=== PATIENT | female | born 1960 | race American Indian/Alaskan Native ===

== ENCOUNTER 2019-09-22 10:36 | Inpatient (IN) | payer MEDICARE ==
[2019-09-22] MEDS ORDERED: ONDANSETRON 4 MG ODT TAB PO PRN (11:42)
[2019-09-22] MEDS ORDERED: ALBUTEROL 2.5 MG/3 ML NEBU IH PRN (11:42)
[2019-09-22] MEDS ORDERED: POLYETHYLENE GLYCOL 3350 17 GM POWDER PO PRN (11:42)
--- NOTE | 2019-09-22 12:25 | History and Physical Report ---
History of Present Illness Date: 09/22/19 Date of admission: September 22, 2019 Chief Complaint: Altered mental status /metabolic encephalopathy History of present illness: 59-year-old female who presented with altered mental status to the ER. Symptoms were consistent with CVA however CT head and MRI brain did not bear this out. CT head dated 09/17/2019 showed advanced microvascular ischemic changes similar with prior imaging, along with multiple remote small infarcts there were unchanged from prior and no acute abnormalities. MRI brain showed significant signal abnormality in both cerebral hemispheres with PRES as a consideration versus viral versus demyelinating disease. No focal mass or ischemia was appreciated there is a small nonaggressive appearing right parotid lesion as well noted incidentally. Neurology was consulted and stated that the multiple ischemic changes were all very minor but in toto could be causal for the altered mental status and encephalopathy. Patient was restarted on most of her home medications with some changes notably in the BILLY inhibitor which was changed to an ARB. Blood pressure has been and is still intermittently elevated. She was noted to have lymphopenia initially which later improved. She also had hypokalemia which was replaced. She does have medications at her bedside from home which show that she was on potassium replacement previously. Carotid Dopplers showed no significant disease in either side. Echocardiogram showed trace mitral regurg, mild tricuspid regurg, trace aortic regurg, left ventricular chamber normal with mild concentric hypertrophy. Ejection fraction estimated at 50-55%. Patient was also seen in the hospital back in 2013 for possible ischemic stroke. Neurologist note at that point stated that the CT scan of the brain showed no acute abnormalities but did show a few small lacunar infarcts that were chronic in nature. Brain MRI showed 3 small acute ischemic strokes including the largest of which which was subcortically in the posterior right frontal lobe and 2 in the left frontal and right frontal lobe subcortically. Patient was stabilized and seen by therapy. She was felt to be a good candidate for rehab and once medically stable was transferred for acute inpatient rehabilitation. All available medical records have been reviewed. Plan of care was discussed with patient and family. Patient is difficult to understand but with some effort can be understood and is interactive albeit slowly. Prior to admission to acute rehab medical records including records from prior admissions were reviewed in depth utilizing in total 37 minutes. Details of that medical record review are as stated above. Past History Past Medical History: hypertension, stroke Past Surgical History: cholecystectomy (Per patient, however I do not see any surgical clips on x-ray that are consistent with this.) Social history: lives with family, smoking, full code. denies: alcohol abuse, prescription drug abuse Family history: hypertension Medications and Allergies Allergies Allergy/AdvReac Type Severity Reaction Status Date / Time No Known Allergies Allergy Unverified 06/10/13 10:35 Home Medications Medication Instructions Recorded Confirmed Last Taken Type lisinopriL [Zestril TAB] 20 mg PO BID #60 tablet 06/12/13 09/17/19 Unknown Rx Metoprolol Xl [Metoprolol 100 mg PO QDAY 09/17/19 09/17/19 Unknown History SUCCINATE ER TAB] Mirtazapine 7.5 mg PO QHS 09/17/19 09/17/19 Unknown History Spironolactone [Aldactone] 25 mg PO BID 09/17/19 09/17/19 Unknown History Aspirin 325 mg PO QDAY tablet 09/21/19 Unknown Rx AtorvaSTATin [Lipitor] 40 mg PO QHS tablet 09/21/19 Unknown Rx Famotidine [Pepcid] 20 mg PO BID tablet 09/21/19 Unknown Rx Valsartan [Diovan] 160 mg PO Q12HR tablet 09/21/19 Unknown Rx Active Meds: Active Medications Acetaminophen (Tylenol) 650 mg PO Q6H PRN PRN Reason: Non Cardiac Pain or Temp>100.5 Albuterol (Proventil) 2.5 mg IH Q4HRT PRN PRN Reason: Shortness Of Breath Aspirin (Ecotrin) 325 mg PO QDAY SHAWN Atorvastatin Calcium (Lipitor) 40 mg PO QHS SHAWN Famotidine (Pepcid) 20 mg PO BID SHAWN Heparin Sodium (Porcine) (Heparin) 5,000 unit SUB-Q Q8HR SHAWN Hydralazine HCl (Apresoline) 10 mg IV Q4HR PRN PRN Reason: Hypertension Hydralazine HCl (Apresoline) 25 mg PO Q8HR SHAWN Metoprolol Succinate (Metoprolol Xl) 100 mg PO QDAY SHAWN Mirtazapine (Remeron) 7.5 mg PO QHS SHAWN Polyethylene Glycol (Miralax 3350) 17 gm PO QDAY PRN PRN Reason: Constipation Spironolactone (Aldactone) 25 mg PO BID SHAWN Valsartan (Diovan) 160 mg PO BID SHAWN Review of Systems All systems: negative (ROS negative for 12 systems except as noted below with pertinent positives and negatives.) Constitutional: fatigue, no fever Ears, nose, mouth and throat: dysphagia, no decreased hearing Cardiovascular: no chest pain, no palpitations, no edema Respiratory: no cough, no shortness of breath Gastrointestinal: no nausea, no vomiting, no diarrhea Musculoskeletal: no shooting arm pain, no shooting leg pain, no prior amputat ions Integumentary: no rash, no sores Neurological: weakness, change in speech, change in mentation Psychiatric: insomnia Exam - Exam Narrative exam: MUSCULOSKELETAL SPECIALTY EXAM CONSTITUTIONAL: Well developed, well nourished, appropriately groomed, thin. RIGHT hand dominant. LYMPHATIC: No appreciable abnormalities palpable in neck, left IV RESPIRATORY: Clear to auscultation bilaterally, no increased work of breathing CARDIOVASCULAR: Regular Rate/ Rhythm, no swelling, edema or tenderness in BUE or BLE. Pulses palpable in all extremities. All extremities warm. GI: + bowel sounds, soft, NTTP, nondistended. INTEGUMENTARY: Normal, no lesion, rash, masses or bruising noted in extremities. MUSCULOSKELETAL: BUE and BLE normal without defect, crepitus, subluxation, effusion, arthritic changes or TTP. R 4-/5 upper extremity, 3/5 lower extremity L 4-/5 upper extremity, 3/5 lower extremity ROM decreased in legs due to weakness otherwise normal Tone within normal limits NEURO: CN II - XII grossly intact Sensation intact in all extremities without extinction. Reflexes 3+ bilaterally at biceps, brachioradialis and patella. 2-3 beats of clonus at ankles. Coordination impaired in BUE. No tremor noted in 4 extremities. Naming and repetition intact with slowed speech. Follows 2 step commands. Aphasia not appreciated Dysarthria present Dysphagia present Neglect not appreciated POSTURE and GAIT: Sitting posture good. Balance and gait deferred until seen with therapy. PSYCH: Alert, oriented x3, affect appears flattened, insight appears slightly impaired. - Allied health notes Allied health notes reviewed: nursing, PT, ST, OT - Labs CBC & Chem 7: 09/23/19 07:00 09/23/19 07:00 Assessment and Plan Assessment and plan: Patient was assessed and evaluated for Acute Inpatient Rehab Unit. Due to the patients above-mentioned medical complexity, along with decreased functional mobility and self care, this patient continues to require and be appropriate for a comprehensive, multidisciplinary [id number] rehabilitation program. These needs cannot be met in an outpatient or other less intensive setting. The patient would continue to benefit from skilled the andrew intervention for at least 3 hours per day, five days a week, with techniques specific to the needs of the patient to improve function, activities of daily living, and reintegration into the community. The patient continues to require: -- OT to improve ROM, self-care, and learn use of adaptive equipment -- PT to improve strength and balance, functional transfers, and ambulation with energy conservation techniques to improve functional mobility -- BOTTOM STAINER to address cognitive deficits and swallowing ability -- 24 hour RN to ensure and prevent skin breakdown, promote progressive independence while ensuring safety, ensure education regarding medications, and incorporation of the rehabilitation at the bedside -- 24 hour Insurance Verifier to coordinate this interdisciplinary program, and to manage/prevent complications as a result of the patients medical comorbidities. -Plan of care by day 4 -Weekly team conferences With such a program, there is a reasonable certainty that the goals individuali zed for this patient can be achieved within the specified length of stay. Altered mental status/metabolic encephalopathy: Seems to be clearing. Continue to monitor for any further signs of decline or improvement. CVA, chronic: Continue secondary stroke prevention utilizing antithrombotic, statin, blood pressure control and lifestyle modifications. Monitor for recurrent stroke or poststroke recrudescence. Continue neuromotor therapy as above. Family training when available. Monitor for poststroke depression, cognitive deficits. Follow-up with neurology at discharge. Dysarthria: Continue speech therapy to improve ability to speak clearly by strengthening and improving control of muscles, improving breath support and slowing rate of speech. Dysphagia: Continue current diet. Speech to monitor and advance diet as able and perform FEES or MBS or e-stim as needed. Hypertension: Continue medications with hold parameters. Monitor blood pressure and adjust medications as needed for normotension. Hold for hypotension Insomnia: Continue home mirtazapine. Discussed sleep hygiene. Monitor for improvement ADL dysfunction: OT will work on improving ability to perform ADLs (including assistive devices) to increase independence and decrease caregiver burden and improve functional transfers and mobility training. Difficulty walking: PT will work on gait training and proper use of assistive devices and advance as appropriate to use of stairs and outside ambulation on uneven surfaces. Unsteadiness on feet: PT will work on improving static and dynamic sitting and standing balance as well as proper use of assistive devices to decrease risk of falls. Abnormality of gait: PT will work to improve safety and efficiency of gait through neuromotor training and gait training along with instruction on proper use of assistive devices. Muscle weakness: PT & OT will work on strengthening exercises to improve functional strength including mixture of closed and open kinetic chain exercises. Debility: PT & OT will work on improving overall functional status to improve participation with ADLs, mobility and social involvement. Fatigue: PT & OT will work on improving endurance through aerobic exercises and therapeutic activity while monitoring patients tolerance for activity and vital signs as needed. DVT ppx: Heparin Pain: Continue physical modalities in therapy and pain medications as needed to achieve functional pain control. Sleep: Monitor and address as needed. Bowel: Monitor and address as needed. Appetite: Monitor and address as needed. Discharge planning: Pending therapy progress and care plan meeting. Will continue discussion with therapy team, SW, patient and family. Restrictions/ Precautions: Falls WB status: FWB Functional Hx: ADLs: Needed assistance Cognition: Independent Mobility: Wheelchair/rolling walker Barriers to Discharge: Decreased mobility and ability to perform self care, balance deficits, weakness, cognitive deficits, dysarthria, dysphagia Estimated Length of Stay: 1214 days Discharge Destination: Home with family POST ADMISSION PHYSICIAN EVALUATION I have examined the patient and find that functional status, medical condition and appropriateness for IR[facility] admission are essentially unchanged from those described in the preadmission screening. Will monitor for worsening symptoms of encephalopathy, recurrent stroke, dysphagia, pneumonia/pneumonitis/aspiration, falls, DVT/PE, bowel and bladder complications and complications due to hypertension and electrolyte abnormalities. Will attempt to avoid occurrence of these issues or treat them if they present themselves.
[2019-09-22] MEDS: hydrALAZINE 25 MG TAB PO SCH ×2 (14:58→21:25)
[2019-09-22] MEDS: HEPARIN 5,000 UNIT/1 ML VIAL SUB-Q SCH ×2 (14:59→21:24)
[2019-09-22] MEDS: VALSARTAN 160MG TAB PO SCH (21:24)
[2019-09-22] MEDS: MIRTAZAPINE 15 MG TAB PO SCH (21:24)
[2019-09-22] MEDS: SPIRONOLACTONE 25 MG TAB PO SCH (21:25)
[2019-09-22] MEDS: FAMOTIDINE 20 MG TAB PO SCH (21:25)
[2019-09-23] MEDS: hydrALAZINE 25 MG TAB PO SCH ×3 (06:09→22:55)
[2019-09-23] MEDS: HEPARIN 5,000 UNIT/1 ML VIAL SUB-Q SCH ×3 (06:09→22:57)
[2019-09-23 07:19] LABS: Hematocrit 32.2 % (30.3-42.9); Mean Corpuscular HGB Conc 34 % (30-34); Mean Corpuscular Volume 90 fl (79-97); Platelet Count 140 K/mm3 (140-440); Red Blood Count 3.59 M/mm3 (3.65-5.03)
[2019-09-23 07:42] LABS: Alanine Aminotransferase 12 units/L (7-56); Albumin 2.8 g/dL (3.9-5); BUN/Creatinine Ratio 22; Blood Urea Nitrogen 13 mg/dL (7-17); Calcium 8.5 mg/dL (8.4-10.2); Hemolysis Index 2
[2019-09-23 09:23] LABS: Anisocytosis 1+; Eosinophils % (Manual) 0 % (0.0-4.3); Total Cells Counted 100
[2019-09-23 09:24] LABS: Ovalocytes Few; Platelet Estimate Consistent w Auto
[2019-09-23] MEDS: SPIRONOLACTONE 25 MG TAB PO SCH ×2 (09:28→22:55)
[2019-09-23] MEDS: VALSARTAN 160MG TAB PO SCH ×2 (09:29→22:56)
[2019-09-23] MEDS: METOPROLOL SUCCINATE XL 100 MG TAB PO SCH (09:29)
[2019-09-23] MEDS: ASPIRIN EC 325 MG TAB PO SCH (09:29)
[2019-09-23] MEDS: FAMOTIDINE 20 MG TAB PO SCH ×2 (09:29→22:56)
[2019-09-23] MEDS ORDERED: MAGNESIUM SULFATE 2 GM/50 ML BAG IV ONE (10:00)
--- NOTE | 2019-09-23 11:07 | Progress Note ---
Subjective Date of service: 09/23/19 Principal diagnosis: Altered mental status /metabolic encephalopathy Interval history: 59-year-old female who presented with altered mental status to the ER. Symptoms were consistent with CVA however CT head and MRI brain did not bear this out. CT head dated 09/17/2019 showed advanced microvascular ischemic changes similar with prior imaging, along with multiple remote small infarcts there were unchanged from prior and no acute abnormalities. MRI brain showed significant signal abnormality in both cerebral hemispheres with PRES as a consideration versus viral versus demyelinating disease. No focal mass or ischemia was appreciated there is a small nonaggressive appearing right parotid lesion as well noted incidentally. Neurology was consulted and stated that the multiple ischemic changes were all very minor but in toto could be causal for the altered mental status and encephalopathy. Patient was restarted on most of her home medications with some changes notably in the BILLY inhibitor which was changed to an ARB. Blood pressure has been and is still intermittently elevated. She was noted to have lymphopenia initially which later improved. She also had hypokalemia which was replaced. She does have medications at her bedside from home which show that she was on potassium replacement previously. Carotid Dopplers showed no significant disease in either side. Echocardiogram showed trace mitral regurg, mild tricuspid regurg, trace aortic regurg, left ventricular chamber normal with mild concentric hypertrophy. Ejection fraction estimated at 50-55%. Patient was also seen in the hospital back in 2013 for possible ischemic stroke. Neurologist note at that point stated that the CT scan of the brain showed no acute abnormalities but did show a few small lacunar infarcts that were chronic in nature. Brain MRI showed 3 small acute ischemic strokes including the largest of which which was subcortically in the posterior right frontal lobe and 2 in the left frontal and right frontal lobe subcortically. Patient was stabilized and seen by therapy. She was felt to be a good candidate for rehab and once medically stable was transferred for acute inpatient rehabilitation. All available medical records have been reviewed. Plan of care was discussed with patient. Patient is difficult to understand but with some effort can be understood and is interactive albeit slowly. Interval History: Patient is participating in therapy and making reasonable progress. Taking rest breaks as needed. -BM. Denies pain, palpitations, dyspnea, cough, N/V, or joint pain. Altered mental status/metabolic encephalopathy: Seems to be clearing somewhat. Continue to monitor for improvement Hypertension: Discussed with nursing that PRN dose is available. Patient had systolic blood pressure 160+ overnight with nothing being given. We will continue to adjust medications as needed to control blood pressure optimally. Hypomagnesemia: Replace and recheck labs tomorrow. Consider oral replacement afterwards Hypokalemia: Replace and recheck labs tomorrow. Consider oral replacement afterwards Tobacco abuse: Start low-dose nicotine patch. Patient states that she does currently still smoke daily prior to hospitalization CVA, chronic: Continue medications for secondary stroke prevention. Does not appear to have post stroke depression or worsening neurological signs. Dysarthria: Understandable however does have slowed speech and difficulty with word enunciation. Continue speech Dysphagia: Continue diet and upgrade as speech therapy improves her ability to improve oral intake. No aspiration noted today with modified diet intake Moderate protein malnutrition: Patient is thin. I do not believe the BMI of 15.7. Her weight since she has been at the hospital starting September 16 has varied from 120 pounds to 154 pounds and now 88 pounds. Will ask nursing to obtain a correct weight. Albumin 2.8. Have ordered prealbumin for tomorrow. We will start her on oral supplements. All records, vitals, labs and medications were reviewed. No other issues per patient, nursing or therapy. Objective - Exam Narrative Exam: MUSCULOSKELETAL SPECIALTY EXAM CONSTITUTIONAL: Well developed, well nourished, appropriately groomed, thin. RIGHT hand dominant. RESPIRATORY: Clear to auscultation bilaterally, no increased work of breathing CARDIOVASCULAR: Regular Rate/ Rhythm, no swelling, edema or tenderness in BUE or BLE. All extremities warm. GI: + bowel sounds, soft, NTTP, nondistended. INTEGUMENTARY: Normal, no lesion, rash, masses or bruising noted in extremities. MUSCULOSKELETAL: BUE and BLE normal without defect, crepitus, subluxation, effusion, arthritic changes or TTP. R 4-/5 upper extremity, 3/5 lower extremity L 4-/5 upper extremity, 3/5 lower extremity ROM decreased in legs due to weakness otherwise normal Tone within normal limits NEURO: CN II - XII grossly intact Sensation intact in all extremities without extinction. No tremor noted in 4 extremities. Naming and repetition intact with slowed speech. Follows simple 2 step commands. Aphasia not appreciated Dysarthria present Dysphagia present Neglect not appreciated POSTURE and GAIT: Sitting posture good. Balance and gait deferred until seen with therapy. PSYCH: Alert, oriented x3, affect appears flattened, insight appears slightly impaired. - Constitutional Vitals: Vital Signs - 12hr 09/22/19 09/22/19 09/23/19 23:27 23:36 03:13 Temperature 97.6 F 97.5 F L Pulse Rate 83 Respiratory 16 16 Rate Blood Pressure 169/89 168/86 O2 Sat by Pulse 99 Oximetry 09/23/19 09/23/19 09/23/19 04:52 06:09 08:30 Temperature 98.4 F Pulse Rate 83 83 106 H Respiratory 18 Rate Blood Pressure 168/86 119/72 O2 Sat by Pulse 92 96 Oximetry 09/23/19 09/23/19 09:28 09:29 Temperature Pulse Rate 84 84 Respiratory Rate Blood Pressure 120/72 120/72 O2 Sat by Pulse 100 Oximetry - Allied health notes Allied health notes reviewed: nursing, ST, OT - Labs CBC & Chem 7: 09/23/19 07:00 09/23/19 07:00 Labs: Laboratory Results - last 72 hr 09/23/19 09/23/19 07:00 07:00 WBC 2.0 L RBC 3.59 L Hgb 11.0 Hct 32.2 MCV 90 MCH 31 MCHC 34 RDW 16.0 H Plt Count 140 [place] % (Auto) Car [employer]orer Add Manual Diff Complete Total Counted 100 Seg Neuts % (Manual) 78.0 H Band Neutrophils % 0 Lymphocytes % (Manual) 9.0 L Reactive Lymphs % (Man) 0 Monocytes % (Manual) 11.0 H Eosinophils % (Manual) 0 Basophils % (Manual) 2.0 H Metamyelocytes % 0 Myelocytes % 0 Promyelocytes % 0 Blast Cells % 0 Nucleated RBC % Not Reportable Seg Neutrophils # Man 1.6 L Band Neutrophils # 0.0 Lymphocytes # (Manual) 0.2 L Abs React Lymphs (Man) 0.0 Monocytes # (Manual) 0.2 Eosinophils # (Manual) 0.0 Basophils # (Manual) 0.0 Metamyelocytes # 0.0 Myelocytes # 0.0 Promyelocytes # 0.0 Blast Cells # 0.0 WBC Morphology Not Reportable Hypersegmented Neuts Not Reportable Hyposegmented Neuts Not Reportable Hypogranular Neuts Not Reportable Smudge Cells Not Reportable Toxic Granulation Not Reportable Toxic Vacuolation Not Reportable Dohle Bodies Not Reportable Pelger-Huet Anomaly Not Reportable Dirk Rods Not Reportable Platelet Estimate Consistent w auto Clumped Platelets Not Reportable Plt Clumps, EDTA Not Reportable Large Platelets Not Reportable Giant Platelets Not Reportable Platelet Satelliting Not Reportable Plt Morphology Comment Not Reportable RBC Morphology Not Reportable Dimorphic RBCs Not Reportable Polychromasia Not Reportable Hypochromasia Not Reportable Poikilocytosis Not Reportable Anisocytosis 1+ Microcytosis Not Reportable Macrocytosis Not Reportable Spherocytes Not Reportable Pappenheimer Bodies Not Reportable Sickle Cells Not Reportable Target Cells Not Reportable Tear Drop Cells Not Reportable Ovalocytes Few Helmet Cells Not Reportable Jensen-[place] Bodies Not Reportable [place] Rings Not Reportable [place] Cells Not Reportable Bite Cells Not Reportable Crenated Cell Not Reportable Elliptocytes Few Acanthocytes (Spur) Not Reportable Rouleaux Not Reportable Hemoglobin C Crystals Not Reportable Schistocytes Not Reportable Malaria parasites Not Reportable Beni Bodies Not Reportable Hem Pathologist Commnt No Sodium 139 Potassium 3.2 L Chloride 100.7 Carbon Dioxide 27 Anion Gap 15 BUN 13 Creatinine 0.6 L Estimated GFR > 60 BUN/Creatinine Ratio 22 Glucose 116 H Calcium 8.5 Magnesium 1.50 L Total Bilirubin 0.40 AST 22 ALT 12 Alkaline Phosphatase 122 Total Protein 7.1 Albumin 2.8 L Albumin/Globulin Ratio 0.7 Assessment and Plan Altered mental status/metabolic encephalopathy: Seems to be clearing. Continue to monitor for any further signs of decline or improvement. CVA, chronic: Continue secondary stroke prevention utilizing antithrombotic, statin, blood pressure control and lifestyle modifications. Monitor for recurrent stroke or poststroke recrudescence. Continue neuromotor therapy as above. Family training when available. Monitor for poststroke depression, cognitive deficits. Follow-up with neurology at discharge. Dysarthria: Continue speech therapy to improve ability to speak clearly by strengthening and improving control of muscles, improving breath support and slo wing rate of speech. Dysphagia: Continue current diet. Speech to monitor and advance diet as able and perform FEES or MBS or e-stim as needed. Hypertension: Continue medications with hold parameters. Monitor blood pressure and adjust medications as needed for normotension. Hold for hypotension Insomnia: Continue home mirtazapine. Discussed sleep hygiene. Monitor for improvement Tobacco cessation: Discussed with the patient for approximately 4 minutes the importance of tobacco cessation especially in light of her prior CVA and hypertension. Offered nicotine patch and other avenues to assist with quitting. Patient states that she is currently still smoke on a regular basis. Will st art nicotine patch at low level and hopefully assist her with cessation. Hypomagnesemia: Replace via IV and monitor. Patient was on oral replacement previously, will likely restart that. Hypokalemia: Replace via IV and monitor. Patient does have prescription for potassium chloride monitor bedside. She is on spironolactone but we still may need to restart oral replacement. Continue to monitor Moderate protein malnutrition: Prealbumin ordered. Start oral supplements ADL dysfunction: OT will work on improving ability to perform ADLs (including assistive devices) to increase independence and decrease caregiver burden and improve functional transfers and mobility training. Difficulty walking: PT will work on gait training and proper use of assistive devices and advance as appropriate to use of stairs and outside ambulation on uneven surfaces. Unsteadiness on feet: PT will work on improving static and dynamic sitting and standing balance as well as proper use of assistive devices to decrease risk of falls. Abnormality of gait: PT will work to improve safety and efficiency of gait through neuromotor training and gait training along with instruction on proper use of assistive devices. Muscle weakness: PT & OT will work on strengthening exercises to improve functional strength including mixture of closed and open kinetic chain exercises. Debility: PT & OT will work on improving overall functional status to improve participation with ADLs, mobility and social involvement. Fatigue: PT & OT will work on improving endurance through aerobic exercises and therapeutic activity while monitoring patients tolerance for activity and vital signs as needed. DVT ppx: Heparin Pain: Continue physical modalities in therapy and pain medications as needed to achieve functional pain control. Sleep: Monitor and address as needed. Bowel: Monitor and address as needed. Appetite: Monitor and address as needed. Discharge planning: Pending therapy progress and care plan meeting. Will continue discussion with therapy team, SW, patient and family. Restrictions/ Precautions: Falls WB status: FWB Functional Hx: ADLs: Needed assistance Cognition: Independent Mobility: Wheelchair/rolling walker Barriers to Discharge: Decreased mobility and ability to perform self care, ba neris deficits, weakness, cognitive deficits, dysarthria, dysphagia Estimated Length of Stay: 1214 days Discharge Destination: Home with family
[2019-09-23] MEDS: POTASSIUM CHLORIDE 10 MEQ 10 MEQ/100 ML BAG IV SCH ×3 (11:16→13:18)
[2019-09-23] MEDS: DOCUSATE SODIUM 100 MG CAP PO SCH ×2 (12:17→22:55)
[2019-09-23] MEDS: NICOTINE 7 MG/24 HR PATCH TD SCH (14:13)
[2019-09-23] MEDS: hydrALAZINE 20 MG/1 ML INJ IV PRN (17:54)
[2019-09-23] MEDS: MIRTAZAPINE 15 MG TAB PO SCH (22:54)
[2019-09-24] MEDS: HEPARIN 5,000 UNIT/1 ML VIAL SUB-Q SCH ×3 (06:55→21:50)
[2019-09-24] MEDS: hydrALAZINE 25 MG TAB PO SCH ×3 (06:55→21:49)
[2019-09-24 07:04] LABS: Hematocrit 31.7 % (30.3-42.9); Hemoglobin 10.8 gm/dl (10.1-14.3); Mean Corpuscular HGB Conc 34 % (30-34); Mean Corpuscular Volume 89 fl (79-97); Platelet Count 135 K/mm3 (140-440); Red Blood Count 3.55 M/mm3 (3.65-5.03); Red Cell Distribution Width 16.1 % (13.2-15.2)
[2019-09-24 07:31] LABS: BUN/Creatinine Ratio 22; Blood Urea Nitrogen 13 mg/dL (7-17); Calcium 8.6 mg/dL (8.4-10.2); Hemolysis Index 5; Prealbumin 0.112 g/L (0.200-0.400)
--- NOTE | 2019-09-24 09:18 | Progress Note ---
Subjective Date of service: 09/24/19 Principal diagnosis: Altered mental status /metabolic encephalopathy Interval history: 59-year-old female who presented with altered mental status to the ER. Symptoms were consistent with CVA however CT head and MRI brain did not bear this out. CT head dated 09/17/2019 showed advanced microvascular ischemic changes similar with prior imaging, along with multiple remote small infarcts there were unchanged from prior and no acute abnormalities. MRI brain showed significant signal abnormality in both cerebral hemispheres with PRES as a consideration versus viral versus demyelinating disease. No focal mass or ischemia was appreciated there is a small nonaggressive appearing right parotid lesion as well noted incidentally. Neurology was consulted and stated that the multiple ischemic changes were all very minor but in toto could be causal for the altered mental status and encephalopathy. Patient was restarted on most of her home medications with some changes notably in the BILLY inhibitor which was changed to an ARB. Blood pressure has been and is still intermittently elevated. She was noted to have lymphopenia initially which later improved. She also had hypokalemia which was replaced. She does have medications at her bedside from home which show that she was on potassium replacement previously. Carotid Dopplers showed no significant disease in either side. Echocardiogram showed trace mitral regurg, mild tricuspid regurg, trace aortic regurg, left ventricular chamber normal with mild concentric hypertrophy. Ejection fraction estimated at 50-55%. Patient was also seen in the hospital back in 2013 for possible ischemic stroke. Neurologist note at that point stated that the CT scan of the brain showed no acute abnormalities but did show a few small lacunar infarcts that were chronic in nature. Brain MRI showed 3 small acute ischemic strokes including the largest of which which was subcortically in the posterior right frontal lobe and 2 in the left frontal and right frontal lobe subcortically. Patient was stabilized and seen by therapy. She was felt to be a good candidate for rehab and once medically stable was transferred for acute inpatient rehabilitation. All available medical records have been reviewed. Plan of care was discussed with patient. Patient is difficult to understand but with some effort can be understood and is interactive albeit slowly. Interval History: Patient is less interactive today. She apparently did this yesterday with speech therapy. Did not eat this morning, is not up and dressed, would not talk with me. Easily aroused and opened her eyes would not keep them open. Would s ole and nod her head only. +BM. Denies pain, palpitations, dyspnea, cough, N/V, or joint pain. Did discuss with her that if she does not participate that we will be forced to send her to a long-term facility for further care. Advise therapy to attempt to get her into therapy later today as opposed to this morning. Altered mental status/metabolic encephalopathy: Decreased interaction may well be due to metabolic encephalopathy. Continue to monitor for improvement Hypertension: Blood pressure better overall, she did have episode yesterday that required PRN hydralazine. Also had elevated blood pressure this morning which later corrected with medications. Hypomagnesemia: Improved, patient was on oral magnesium at home, will restart Mag-Ox. Hypokalemia: Labs still pending for potassium, consider oral replacement afterwards Tobacco abuse: Continue low-dose nicotine patch. CVA, chronic: Continue medications for secondary stroke prevention. Does not appear to have post stroke depression or worsening neurological signs. Dysarthria: Understandable however does have slowed speech and difficulty with word enunciation. Speech therapy has signed off due to patient's lack of par ticipation. May reconsult if this improves. Uncertain if this is part of her metabolic encephalopathy or if she is not amenable to mornings. Dysphagia: Patient cleared with no further dysphagia issues per speech therapy. They have since signed off as noted above. She will continue on her current diet due to edentulousness. Moderate protein malnutrition: Continue oral supplements. Prealbumin is low at 0.112. Leukopenia: Decreased today back to previous level. Attempted to consult heme- onc however was told that they no longer come to the hospital. I would explain why hospitalist deferred her consult to outpatient. Differential diagnosis includes viral infection, bone marrow issues, cancer, and nutritional disorder. Will attempt to replace nutritional deficits and monitor as closely as possible for improvement. If her encephalopathy was due to a viral issue as was postulated on the acute care side this could be part of that as well. Reviewing her labs from 2013 which is her last admission it also appears that she had WBCs of 4.4 at that point. However I do not have any information on nutritional status from that time. All records, vitals, labs and medications were reviewed. No other issues per patient, nursing or therapy. Objective - Exam Narrative Exam: MUSCULOSKELETAL SPECIALTY EXAM CONSTITUTIONAL: Well developed, poorly nourished, appropriately groomed, thin. RIGHT hand dominant. RESPIRATORY: Clear to auscultation bilaterally, no increased work of breathing CARDIOVASCULAR: Regular Rate/ Rhythm, no swelling, edema or tenderness in BUE or BLE. All extremities warm. GI: + bowel sounds, soft, NTTP, nondistended. INTEGUMENTARY: Normal, no lesion, rash, masses or bruising noted in extremities. MUSCULOSKELETAL: BUE and BLE normal without defect, crepitus, subluxation, effusion, arthritic changes or TTP. R 4-/5 upper extremity, 3/5 lower extremity L 4-/5 upper extremity, 3/5 lower extremity ROM decreased in legs due to weakness otherwise normal Tone within normal limits NEURO: CN II - XII grossly intact Sensation intact in all extremities without extinction. No tremor noted in 4 extremities. Would not talk to me this morning however typically her naming and repetition are intact with slowed speech. Would not follow commands this morning. Aphasia not appreciated Dysarthria present Dysphagia not appreciated. Neglect not appreciated POSTURE and GAIT: Sitting posture good. Balance and gait deferred until seen with therapy. PSYCH: Drowsy, was oriented x3 yesterday, affect appears flattened, insight appears slightly impaired. - Constitutional Vitals: Vital Signs - 12hr 09/23/19 09/23/19 09/23/19 22:50 22:55 22:56 Temperature 97.5 F L Pulse Rate 89 80 80 Pulse Rate [ Apical] Pulse Rate [ Radial] Respiratory 18 Rate Blood Pressure 125/76 125/76 125/76 O2 Sat by Pulse 97 Oximetry 09/23/19 09/24/19 09/24/19 23:00 04:06 04:10 Temperature 97.5 F L Pulse Rate 90 Pulse Rate [ 81 Apical] Pulse Rate [ 81 Radial] Respiratory 19 18 Rate Blood Pressure 173/93 O2 Sat by Pulse 57 L 95 Oximetry 09/24/19 09/24/19 09/24/19 06:55 07:33 07:36 Temperature 97.2 F L 97.6 F Pulse Rate 95 H Pulse Rate [ Apical] Pulse Rate [ Radial] Respiratory 20 20 Rate Blood Pressure 113/76 94/56 140/76 O2 Sat by Pulse Oximetry - Allied health notes Allied health notes reviewed: nursing, PT, OT - Labs CBC & Chem 7: 09/24/19 06:38 09/24/19 06:38 Labs: Laboratory Results - last 72 hr 09/23/19 09/23/19 09/24/19 07:00 07:00 06:38 WBC 2.0 L 1.7 L* RBC 3.59 L 3.55 L Hgb 11.0 10.8 Hct 32.2 31.7 MCV 90 89 MCH 31 30 MCHC 34 34 RDW 16.0 H 16.1 H Plt Count 140 135 L [place] % (Auto) Switchboard Mechanic Add Manual Diff Complete Total Counted 100 Seg Neuts % (Manual) 78.0 H Band Neutrophils % 0 Lymphocytes % (Manual) 9.0 L Reactive Lymphs % (Man) 0 Monocytes % (Manual) 11.0 H Eosinophils % (Manual) 0 Basophils % (Manual) 2.0 H Metamyelocytes % 0 Myelocytes % 0 Promyelocytes % 0 Blast Cells % 0 Nucleated RBC % Not Reportable Seg Neutrophils # Man 1.6 L Band Neutrophils # 0.0 Lymphocytes # (Manual) 0.2 L Abs React Lymphs (Man) 0.0 Monocytes # (Manual) 0.2 Eosinophils # (Manual) 0.0 Basophils # (Manual) 0.0 Metamyelocytes # 0.0 Myelocytes # 0.0 Promyelocytes # 0.0 Blast Cells # 0.0 WBC Morphology Not Reportable Hypersegmented Neuts Not Reportable Hyposegmented Neuts Not Reportable Hypogranular Neuts Not Reportable Smudge Cells Not Reportable Toxic Granulation Not Reportable Toxic Vacuolation Not Reportable Dohle Bodies Not Reportable Pelger-Huet Anomaly Not Reportable Dirk Rods Not Reportable Platelet Estimate Consistent w auto Clumped Platelets Not Reportable Plt Clumps, EDTA Not Reportable Large Platelets Not Reportable Giant Platelets Not Reportable Platelet Satelliting Not Reportable Plt Morphology Comment Not Reportable RBC Morphology Not Reportable Dimorphic RBCs Not Reportable Polychromasia Not Reportable Hypochromasia Not Reportable Poikilocytosis Not Reportable Anisocytosis 1+ Microcytosis Not Reportable Macrocytosis Not Reportable Spherocytes Not Reportable Pappenheimer Bodies Not Reportable Sickle Cells Not Reportable Target Cells Not Reportable Tear Drop Cells Not Reportable Ovalocytes Few Helmet Cells Not Reportable [place] Bodies Not Reportable [place] Rings Not Reportable [place] Cells Not Reportable Bite Cells Not Reportable Crenated Cell Not Reportable Elliptocytes Few Acanthocytes (Spur) Not Reportable Rouleaux Not Reportable Hemoglobin C Crystals Not Reportable Schistocytes Not Reportable Malaria parasites Not Reportable Beni Bodies Not Reportable Hem Pathologist Commnt No Sodium 139 Potassium 3.2 L Chloride 100.7 Carbon Dioxide 27 Anion Gap 15 BUN 13 Creatinine 0.6 L Estimated GFR > 60 BUN/Creatinine Ratio 22 Glucose 116 H Calcium 8.5 Magnesium 1.50 L Total Bilirubin 0.40 AST 22 ALT 12 Alkaline Phosphatase 122 Total Protein 7.1 Albumin 2.8 L Albumin/Globulin Ratio 0.7 Prealbumin 09/24/19 06:38 WBC RBC Hgb Hct MCV MCH MCHC RDW Plt Count [place] % (Auto) Add Manual Diff Total Counted Seg Neuts % (Manual) Band Neutrophils % Lymphocytes % (Manual) Reactive Lymphs % (Man) Monocytes % (Manual) Eosinophils % (Manual) Basophils % (Manual) Metamyelocytes % Myelocytes % Promyelocytes % Blast Cells % Nucleated RBC % Seg Neutrophils # Man Band Neutrophils # Lymphocytes # (Manual) Abs React Lymphs (Man) Monocytes # (Manual) Eosinophils # (Manual) Basophils # (Manual) Metamyelocytes # Myelocytes # Promyelocytes # Blast Cells # WBC Morphology Hypersegmented Neuts Hyposegmented Neuts Hypogranular Neuts Smudge Cells Toxic Granulation Toxic Vacuolation Dohle Bodies Pelger-Huet Anomaly Dirk Rods Platelet Estimate Clumped Platelets Plt Clumps, EDTA Large Platelets Giant Platelets Platelet Satelliting Plt Morphology Comment RBC Morphology Dimorphic RBCs Polychromasia Hypochromasia Poikilocytosis Anisocytosis Microcytosis Macrocytosis Spherocytes Pappenheimer Bodies Sickle Cells Target Cells Tear Drop Cells Ovalocytes Helmet Cells Jensen-[place] Bodies [place] Rings [place] Cells Bite Cells Crenated Cell Elliptocytes Acanthocytes (Spur) Rouleaux Hemoglobin C Crystals Schistocytes Malaria parasites Beni Bodies Hem Pathologist Commnt Sodium 136 L Potassium Chloride 99.8 Carbon Dioxide 26 Anion Gap 14 BUN 13 Creatinine 0.6 L Estimated GFR > 60 BUN/Creatinine Ratio 22 Glucose 99 Calcium 8.6 Magnesium 2.00 Total Bilirubin AST ALT Alkaline Phosphatase Total Protein Albumin Albumin/Globulin Ratio Prealbumin 0.112 L Assessment and Plan Altered mental status/metabolic encephalopathy: Seems to be clearing. Continue to monitor for any further signs of decline or improvement. CVA, chronic: Continue secondary stroke prevention utilizing antithrombotic, statin, blood pressure control and lifestyle modifications. Monitor for recurrent stroke or poststroke recrudescence. Continue neuromotor therapy as above. Family training when available. Monitor for poststroke depression, cognitive deficits. Follow-up with neurology at discharge. Dysarthria: Continue speech therapy to improve ability to speak clearly by strengthening and improving control of muscles, improving breath support and slowing rate of speech. Dysphagia: Continue current diet. Speech to monitor and advance diet as able and perform FEES or MBS or e-stim as needed. Hypertension: Continue medications with hold parameters. Monitor blood pressure and adjust medications as needed for normotension. Hold for hypotension Insomnia: Continue home mirtazapine. Discussed sleep hygiene. Monitor for improvement Tobacco cessation: Discussed with the patient for approximately 4 minutes the importance of tobacco cessation especially in light of her prior CVA and hypertension. Offered nicotine patch and other avenues to assist with quitting. Patient states that she is currently still smoke on a regular basis. Will start nicotine patch at low level and hopefully assist her with cessation. Hypomagnesemia: Restart home Mag-Ox. Hypokalemia: Labs pending for today, will look to replace orally going forward. Continue to monitor Moderate protein malnutrition: Prealbumin low. Start oral supplements Leukopenia: Heme-onc consult not available any longer. Will attempt to replace nutritional deficits and monitor for improvement. ADL dysfunction: OT will work on improving ability to perform ADLs (including assistive devices) to increase independence and decrease caregiver burden and improve functional transfers and mobility training. Difficulty walking: PT will work on gait training and proper use of assistive devices and advance as appropriate to use of stairs and outside ambulation on uneven surfaces. Unsteadiness on feet: PT will work on improving static and dynamic sitting and standing balance as well as proper use of assistive devices to decrease risk of falls. Abnormality of gait: PT will work to improve safety and efficiency of gait through neuromotor training and gait training along with instruction on proper use of assistive devices. Muscle weakness: PT & OT will work on strengthening exercises to improve functional strength including mixture of closed and open kinetic chain exercises. Debility: PT & OT will work on improving overall functional status to improve participation with ADLs, mobility and social involvement. Fatigue: PT & OT will work on improving endurance through aerobic exercises and therapeutic activity while monitoring patients tolerance for activity and vital signs as needed. DVT ppx: Heparin Pain: Continue physical modalities in therapy and pain medications as needed to achieve functional pain control. Sleep: Monitor and address as needed. Bowel: Monitor and address as needed. Appetite: Monitor and address as needed. Discharge planning: Pending therapy progress and care plan meeting. Will continue discussion with therapy team, SW, patient and family. Restrictions/ Precautions: Falls WB status: FWB Functional Hx: ADLs: Needed assistance Cognition: Independent Mobility: Wheelchair/rolling walker Barriers to Discharge: Decreased mobility and ability to perform self care, balance deficits, weakness, cognitive deficits, dysarthria Estimated Length of Stay: 1214 days Discharge Destination: Home with family versus long-term facility pending patient's participation
[2019-09-24] MEDS: ASPIRIN EC 325 MG TAB PO SCH (12:53)
[2019-09-24] MEDS: MULTIVITAMINS,THER W-MINERALS TAB PO SCH (12:53)
[2019-09-24] MEDS: POTASSIUM CHLORIDE ER 10 MEQ TAB PO SCH (12:53)
[2019-09-24] MEDS: DOCUSATE SODIUM 100 MG CAP PO SCH ×2 (12:54→21:49)
[2019-09-24] MEDS: FAMOTIDINE 20 MG TAB PO SCH ×2 (12:54→21:49)
[2019-09-24] MEDS: MAGNESIUM OXIDE 400 MG TAB PO SCH (12:54)
[2019-09-24] MEDS: SPIRONOLACTONE 25 MG TAB PO SCH ×2 (12:54→21:49)
[2019-09-24] MEDS: NICOTINE 7 MG/24 HR PATCH TD SCH (13:03)
[2019-09-24] MEDS: METOPROLOL SUCCINATE XL 100 MG TAB PO SCH (16:55)
[2019-09-24] MEDS: VALSARTAN 160MG TAB PO SCH ×2 (16:55→21:49)
[2019-09-24] MEDS: MIRTAZAPINE 15 MG TAB PO SCH (21:49)
[2019-09-25] MEDS: hydrALAZINE 25 MG TAB PO SCH ×3 (04:59→22:23)
[2019-09-25] MEDS: HEPARIN 5,000 UNIT/1 ML VIAL SUB-Q SCH ×3 (05:08→22:24)
[2019-09-25] MEDS: NICOTINE 7 MG/24 HR PATCH TD SCH (10:44)
[2019-09-25] MEDS: ASPIRIN EC 325 MG TAB PO SCH (10:45)
[2019-09-25] MEDS: FAMOTIDINE 20 MG TAB PO SCH ×2 (10:45→22:23)
[2019-09-25] MEDS: METOPROLOL SUCCINATE XL 100 MG TAB PO SCH (10:45)
[2019-09-25] MEDS: MAGNESIUM OXIDE 400 MG TAB PO SCH (10:45)
[2019-09-25] MEDS: DOCUSATE SODIUM 100 MG CAP PO SCH ×2 (10:45→22:24)
[2019-09-25] MEDS: POTASSIUM CHLORIDE ER 10 MEQ TAB PO SCH (10:46)
[2019-09-25] MEDS: VALSARTAN 160MG TAB PO SCH ×2 (10:46→22:23)
[2019-09-25] MEDS: SPIRONOLACTONE 25 MG TAB PO SCH ×2 (10:46→22:24)
[2019-09-25] MEDS: MULTIVITAMINS,THER W-MINERALS TAB PO SCH (10:47)
--- NOTE | 2019-09-25 19:49 | IRU Plan of Care ---
Interdisciplinary Plan of Care - IP IRU INTERDISCIPLINARY PLAN: [facility] Inpatient Rehab Unit Plan of Care IRU Interdisciplinary Care Plan Start: 09/23/19 14:20 Freq: Status: Active Protocol: Document 09/25/19 19:37 TH (Rec: 09/25/19 19:46 TH [id number]) Interdisciplinary Problem List Interdisciplinary Problem List Interdisciplinary Problem List Impaired Bathing/Grooming, Query Text:Answers will Trigger Problems Impaired Dressing,Impaired and Outcomes on Worklist. Mobility,Impaired Transfers, Impaired Toileting,Impaired Comprehension,Impaired Problem Solving,Knowledge Deficits, Discharge Concerns,Impaired Safety IRU Interdisciplinary Care Plan Therapy Services Therapy Services Will Include: Physical Therapy,Occupational Query Text:Patient will be seen for a Therapy minimum of 3 hours of daily therapy 5 out of 7 days a week. Therapy intensity may be adjusted within a 7 consecutive day period to effectively serve the individual needs of the patient. Treatment Frequency/Intensity/Duration Treatment Frequency 5 days/week Treatment Intensity 3 hours per day Treatment Duration 14-18 days Problem Area: Eating/Swallowing Eating/Swallowing Outcomes Eating/Swallowing Interventions Problem Area: Bathing/Grooming Bathing/Grooming Outcomes Improve [place] w/ Grooming,Improve [place] w/ Bathing Bathing/Grooming Interventions ADL Training,Use of Assistive Devices,Therapeutic Exercise, Therapeutic Activity, Neuromuscular Re-Education, Balance Work,Patient/Caregiver Education Problem Area: Dressing Dressing Outcomes Improve [place] w/ UB Dressing,Improve [place] w/ LB Dressing Dressing Interventions ADL Training,Use of Assistive Devices,Neuromuscular Re- Education,Therapeutic Exercise ,Balance Work,Patient/ Caregiver Education Problem Area: Mobility Mobility Outcomes Improve [place] w/ Bed Mobility,Improve [place] w/ Ambulation,Improve [place] w/ Stairs/Curb, Improve [place] w/ Wheelchair Mobility Interventions Therapeutic Exercise, Neuromuscular Re-Ed.,Activity Tolerance Work,Use of Assistive Devices,Patient/ Caregiver Education,Bed Mobility Work,Gait Training,W/ C Mobility Work Problem Area: Transfers Transfers Outcomes Improve [place] w/ Bed Transfers,Improve [place] w/ Toilet Transfers,Improve [place] w/ Tub/Shower Transfers,Improve [place] w/ Car Transfers Transfers Interventions Transfer Training,Therapeutic Exercise,Neuromuscular Re- Education,Activity Tolerance Work,Use of Assistive Devices, Patient/Caregiver Education Problem Area: Bowel/Bladder Managment Bowel/Bladder Outcomes Bowel/Bladder Interventions Problem Area: Toileting Toileting Outcomes Improve [place] w/ Toileting Toileting Interventions ADL Training,Balance Work, Patient/Caregiver Education Problem Area: Nutrition Nutrition Outcomes Nutrition Interventions Problem Area: Comprehension Comprehension Outcomes Improve Comprehension Comprehension Interventions Patient/Caregiver Education Problem Area: Expression Expression Outcomes Expression Interventions Problem Area: Problem Solving Problem Solving Outcomes Improve Problem Solving Problem Solving Interventions Safety Education,Patient/ Caregiver Education Problem Area: Memory Memory Outcomes Memory Interventions Problem Area: Pain Management Pain Management Outcomes Pain Management Interventions Problem Area: Knowledge Deficits Knowledge Deficits Outcomes Knowledge Deficits Interventions Problem Area: Skin/Tissue Integrity Skin/Tissue Integrity Outcomes Skin/Tissue Integrity Interventions Problem Area: Social Interaction Social Interaction Outcomes Social Interaction Interventions Problem Area: Adjustment to Disability Adjustment to Disability Outcomes Adjustment to Disability Interventions Problem Area: Discharge Concerns Discharge Concerns Outcomes Discharge w/ Necessary Equipment,Have Home Health/ Outpatient Services Discharge Concerns Interventions Discharge Planning,Equipment Assessment, Acquisition and Placement,Family/Caregiver Conference,Family/Caregiver Training Problem Area: Community Reintegration Community Reintegration Outcomes Community Reintegration Interventions Problem Area: Home Management Home Management Outcomes Home Management Interventions Problem Area: Safety Safety Outcomes Demonstrate Good Safety w/ Transfers/Mobility Safety Interventions [place] Pt. to Environment, Reduce Environmental Hazards Problem Area: Medication Education Medication Education Outcomes Medication Education Interventions Problem Area: Diabetes Education Diabetes Education Outcomes Demonstrate Knowledge of Resources Availlable in Diabetic Ed. Folder Diabetes Education Interventions Discuss Pathophysiology of Diabetes Problem Area: Oxygenation Oxygenation Outcomes Oxygenation Interventions Problem Area: Cardiovascular Cardiovascular Outcomes Maintain or Improve Cardiovascular Status Cardiovascular Interventions Assess Vital Signs at least Every 4 hours Physician Only Medical Prognosis and Rehabilitation Potential (Completed by Physician) Good rehab potential , good medical prognosis. Patient needs lots of encouragement, has potential for improvement but may be limited by cognitive state. Will continue to encourage as much as possible. This plan of care has been developed based on the findings from the pre- admission assessment, post admission physician evaluation, information gathered from the assessments from all therapy disciplines and other pertinent clinicians. The plan of care has been reviewed and discussed in collaboration with the interdisciplinary team. The plan of care will be reviewed and updated at least weekly.
[2019-09-25] MEDS: MIRTAZAPINE 15 MG TAB PO SCH (22:23)
[2019-09-25] MEDS: ACETAMINOPHEN 325 MG TAB PO PRN (22:25)
[2019-09-26] MEDS: HEPARIN 5,000 UNIT/1 ML VIAL SUB-Q SCH ×3 (05:14→22:08)
[2019-09-26] MEDS: hydrALAZINE 25 MG TAB PO SCH ×3 (05:14→22:07)
[2019-09-26 07:12] LABS: Hematocrit 29.4 % (30.3-42.9); Hemoglobin 9.8 gm/dl (10.1-14.3); Mean Corpuscular HGB Conc 33 % (30-34); Mean Corpuscular Volume 91 fl (79-97); Platelet Count 124 K/mm3 (140-440); Red Blood Count 3.22 M/mm3 (3.65-5.03); Red Cell Distribution Width 16.1 % (13.2-15.2)
[2019-09-26 07:20] LABS: BUN/Creatinine Ratio 30; Blood Urea Nitrogen 21 mg/dL (7-17); Calcium 8.3 mg/dL (8.4-10.2); Hemolysis Index 2
[2019-09-26] MEDS: VALSARTAN 160MG TAB PO SCH ×2 (12:35→22:07)
[2019-09-26] MEDS: ASPIRIN EC 325 MG TAB PO SCH (12:35)
[2019-09-26] MEDS: FAMOTIDINE 20 MG TAB PO SCH ×2 (12:35→22:07)
[2019-09-26] MEDS: MULTIVITAMINS,THER W-MINERALS TAB PO SCH (12:36)
[2019-09-26] MEDS: NICOTINE 7 MG/24 HR PATCH TD SCH (12:36)
[2019-09-26] MEDS: MAGNESIUM OXIDE 400 MG TAB PO SCH (12:36)
[2019-09-26] MEDS: DOCUSATE SODIUM 100 MG CAP PO SCH ×2 (12:36→22:08)
[2019-09-26] MEDS: SPIRONOLACTONE 25 MG TAB PO SCH ×2 (12:37→22:08)
[2019-09-26] MEDS: METOPROLOL SUCCINATE XL 100 MG TAB PO SCH (12:37)
[2019-09-26] MEDS: POTASSIUM CHLORIDE ER 10 MEQ TAB PO SCH (12:37)
[2019-09-26] MEDS: MIRTAZAPINE 15 MG TAB PO SCH (22:07)
[2019-09-27] MEDS: hydrALAZINE 25 MG TAB PO SCH ×3 (05:27→22:08)
[2019-09-27] MEDS: HEPARIN 5,000 UNIT/1 ML VIAL SUB-Q SCH ×3 (05:28→22:17)
--- NOTE | 2019-09-27 09:46 | Progress Note ---
Subjective Date of service: 09/27/19 Principal diagnosis: Altered mental status /metabolic encephalopathy Interval history: 59-year-old female who presented with altered mental status to the ER. Symptoms were consistent with CVA however CT head and MRI brain did not bear this out. CT head dated 09/17/2019 showed advanced microvascular ischemic changes similar with prior imaging, along with multiple remote small infarcts there were unchanged from prior and no acute abnormalities. MRI brain showed significant signal abnormality in both cerebral hemispheres with PRES as a consideration versus viral versus demyelinating disease. No focal mass or ischemia was appreciated there is a small nonaggressive appearing right parotid lesion as well noted incidentally. Neurology was consulted and stated that the multiple ischemic changes were all very minor but in toto could be causal for the altered mental status and encephalopathy. Patient was restarted on most of her home medications with some changes notably in the BILLY inhibitor which was changed to an ARB. Blood pressure has been and is still intermittently elevated. She was noted to have lymphopenia initially which later improved. She also had hypokalemia which was replaced. She does have medications at her bedside from home which show that she was on potassium replacement previously. Carotid Dopplers showed no significant disease in either side. Echocardiogram showed trace mitral regurg, mild tricuspid regurg, trace aortic regurg, left ventricular chamber normal with mild concentric hypertrophy. Ejection fraction estimated at 50-55%. Patient was also seen in the hospital back in 2013 for possible ischemic stroke. Neurologist note at that point stated that the CT scan of the brain showed no acute abnormalities but did show a few small lacunar infarcts that were chronic in nature. Brain MRI showed 3 small acute ischemic strokes including the largest of which which was subcortically in the posterior right frontal lobe and 2 in the left frontal and right frontal lobe subcortically. Patient was stabilized and seen by therapy. She was felt to be a good candidate for rehab and once medically stable was transferred for acute inpatient rehabilitation. All available medical records have been reviewed. Plan of care was discussed with patient. Patient is difficult to understand but with some effort can be understood and is interactive albeit slowly. Interval History: Patient is less interactive today. Easily aroused and opened her eyes would not keep them open. Would shake and nod her head only. -BM, nursing reports last bowel movement on 09/22 however no bowel movements have been documented. Denies pain, palpitations, dyspnea, cough, N/V, or joint pain. Did discuss with her that if she does not participate that we will be forced to send her to a longterm facility for further care. Advise therapy to attempt to get her into therapy later today as opposed to this morning. Seems to have good days and bad days with participation, needs lots of motivation to participate. May need to go ahead and start the search for a longterm facility at this point. Asked nursing again to reweigh the patient to get an accurate weight as she has gone from approximately 120 pounds to 150 pounds back down to 90 pounds. Altered mental status/metabolic encephalopathy: Decreased interaction may be due to metabolic encephalopathy. Continue to monitor for improvement Hypertension: Blood pressure better overall. Hypomagnesemia: Improved, continue oral Mag-Ox. Hypokalemia: Corrected, continue low-dose oral replacement Tobacco abuse: Continue low-dose nicotine patch. CVA, chronic: Continue medications for secondary stroke prevention. Does not appear to have post stroke depression or worsening neurological signs. Dysarthria: Understandable however does have slowed speech and difficulty with word enunciation. Speech therapy has signed off due to patient's lack of participation. May reconsult if this improves. Uncertain if this is part of her metabolic encephalopathy or if she is not amenable to mornings. Moderate protein malnutrition: Continue oral supplements. Prealbumin is low at 0.112. Leukopenia: Stable. Attempted to consult heme-onc however was told that they no longer come to the hospital. All records, vitals, labs and medications were reviewed. No other issues per patient, nursing or therapy. Objective - Exam Narrative Exam: MUSCULOSKELETAL SPECIALTY EXAM CONSTITUTIONAL: Well developed, poorly nourished, appropriately groomed, thin. RIGHT hand dominant. RESPIRATORY: Clear to auscultation bilaterally, no increased work of breathing CARDIOVASCULAR: Regular Rate/ Rhythm, no swelling, edema or tenderness in BUE or BLE. All extremities warm. GI: + bowel sounds, soft, NTTP, nondistended. INTEGUMENTARY: Normal, no lesion, rash, masses or bruising noted in extremities. MUSCULOSKELETAL: BUE and BLE normal without defect, crepitus, subluxation, effusion, arthritic changes or TTP. R 4-/5 upper extremity, 3/5 lower extremity L 4-/5 upper extremity, 3/5 lower extremity ROM decreased in legs due to weakness otherwise normal Tone within normal limits NEURO: CN II - XII grossly intact Sensation intact in all extremities without extinction. No tremor noted in 4 extremities. Would not talk to me this morning however typically her naming and repetition are intact with slowed speech. Would not follow commands this morning. Aphasia not appreciated Dysarthria present Dysphagia not appreciated. Neglect not appreciated POSTURE and GAIT: Sitting posture good. Balance and gait deferred until seen with therapy. PSYCH: Drowsy, orientation difficult to test due to patient's nonresponse to most answers, affect appears flattened, insight appears impaired. - Constitutional Vitals: Vital Signs - 12hr 09/26/19 09/27/19 09/27/19 23:41 03:37 08:47 Temperature 97.8 F 98.0 F Pulse Rate 80 Respiratory 20 18 18 Rate Blood Pressure 140/77 156/92 O2 Sat by Pulse 98 69 L Oximetry - Allied health notes Allied health notes reviewed: nursing, PT, OT - Labs CBC & Chem 7: 09/26/19 06:33 09/26/19 06:33 Labs: Laboratory Results - last 72 hr 09/24/19 09/24/19 09/26/19 09:32 09:32 06:33 WBC 2.0 L RBC 3.22 L Hgb 9.8 L Hct 29.4 L MCV 91 MCH 30 MCHC 33 RDW 16.1 H Plt Count 124 L Sodium Potassium Chloride Carbon Dioxide Anion Gap BUN Creatinine Estimated GFR BUN/Creatinine Ratio Glucose Calcium Vitamin B12 1883 H Folate 14.86 09/26/19 06:33 WBC RBC Hgb Hct MCV MCH MCHC RDW Plt Count Sodium 140 Potassium 4.2 Chloride 103.1 Carbon Dioxide 27 Anion Gap 14 BUN 21 H Creatinine 0.7 Estimated GFR > 60 BUN/Creatinine Ratio 30 Glucose 87 Calcium 8.3 L Vitamin B12 Folate Assessment and Plan Altered mental status/metabolic encephalopathy: Seems to be clearing. Continue to monitor for any further signs of decline or improvement. CVA, chronic: Continue secondary stroke prevention utilizing antithrombotic, statin, blood pressure control and lifestyle modifications. Monitor for recurrent stroke or poststroke recrudescence. Continue neuromotor therapy as above. Family training when available. Monitor for poststroke depression, cognitive deficits. Follow-up with neurology at discharge. Dysarthria: Speech therapy signed off, continue to encourage patient to speak slowly and enunciate so that she is well understood. At this point she is not talking much with us. Dysphagia: Resolved/cleared by speech therapy. Continue current diet due to edentulousness. Speech therapy signed off. Hypertension: Continue medications with hold parameters. Monitor blood pressure and adjust medications as needed for normotension. Hold for hypotension Insomnia: Continue home mirtazapine. Discussed sleep hygiene. Monitor for improvement Tobacco cessation: Continue nicotine patch. Hypomagnesemia: Continue home Mag-Ox. Hypokalemia: Continue oral replacement and monitor for adjustment. Moderate protein malnutrition: Prealbumin low. Continue oral supplements, she has variable intake of these. Will not tell me what flavor she prefers Leukopenia: Heme-onc consult not available any longer. Will attempt to replace nutritional deficits and monitor for improvement. ADL dysfunction: OT will work on improving ability to perform ADLs (including assistive devices) to increase independence and decrease caregiver burden and im prove functional transfers and mobility training. Difficulty walking: PT will work on gait training and proper use of assistive devices and advance as appropriate to use of stairs and outside ambulation on uneven surfaces. Unsteadiness on feet: PT will work on improving static and dynamic sitting and standing balance as well as proper use of assistive devices to decrease risk of falls. Abnormality of gait: PT will work to improve safety and efficiency of gait through neuromotor training and gait training along with instruction on proper use of assistive devices. Muscle weakness: PT & OT will work on strengthening exercises to improve functional strength including mixture of closed and open kinetic chain exercises. Debility: PT & OT will work on improving overall functional status to improve participation with ADLs, mobility and social involvement. Fatigue: PT & OT will work on improving endurance through aerobic exercises and therapeutic activity while monitoring patients tolerance for activity and vital signs as needed. DVT ppx: Heparin Pain: Continue physical modalities in therapy and pain medications as needed to achieve functional pain control. Sleep: Monitor and address as needed. Bowel: Monitor and address as needed. Appetite: Monitor and address as needed. Discharge planning: Pending therapy progress and care plan meeting. Will continue discussion with therapy team, SW, patient and family. Restrictions/ Precautions: Falls WB status: FWB Functional Hx: ADLs: Needed assistance Cognition: Independent Mobility: Wheelchair/rolling walker Barriers to Discharge: Decreased mobility and ability to perform self care, balance deficits, weakness, cognitive deficits, dysarthria Estimated Length of Stay: 1214 days Discharge Destination: Home with family versus longterm facility pending patient's participation
[2019-09-27] MEDS: ASPIRIN EC 325 MG TAB PO SCH (09:53)
[2019-09-27] MEDS: METOPROLOL SUCCINATE XL 100 MG TAB PO SCH (09:53)
[2019-09-27] MEDS: FAMOTIDINE 20 MG TAB PO SCH ×2 (09:53→22:07)
[2019-09-27] MEDS: DOCUSATE SODIUM 100 MG CAP PO SCH ×2 (09:54→22:08)
[2019-09-27] MEDS: SPIRONOLACTONE 25 MG TAB PO SCH ×2 (09:54→22:08)
[2019-09-27] MEDS: MAGNESIUM OXIDE 400 MG TAB PO SCH (09:55)
[2019-09-27] MEDS: MULTIVITAMINS,THER W-MINERALS TAB PO SCH (09:55)
[2019-09-27] MEDS: VALSARTAN 160MG TAB PO SCH ×2 (09:55→22:07)
[2019-09-27] MEDS: POTASSIUM CHLORIDE ER 10 MEQ TAB PO SCH (11:54)
[2019-09-27] MEDS: NICOTINE 7 MG/24 HR PATCH TD SCH (13:23)
[2019-09-27] MEDS: MIRTAZAPINE 15 MG TAB PO SCH (22:08)
[2019-09-28] MEDS: HEPARIN 5,000 UNIT/1 ML VIAL SUB-Q SCH ×3 (04:59→21:45)
[2019-09-28] MEDS: hydrALAZINE 20 MG/1 ML INJ IV PRN (04:59)
[2019-09-28] MEDS: hydrALAZINE 25 MG TAB PO SCH ×3 (06:07→21:45)
[2019-09-28 08:43] LABS: Hematocrit 30.6 % (30.3-42.9); Hemoglobin 10.5 gm/dl (10.1-14.3); Mean Corpuscular HGB Conc 34 % (30-34); Mean Corpuscular Volume 90 fl (79-97); Platelet Count 180 K/mm3 (140-440); Red Cell Distribution Width 15.6 % (13.2-15.2)
[2019-09-28 09:01] LABS: BUN/Creatinine Ratio 27; Blood Urea Nitrogen 19 mg/dL (7-17); Calcium 8.6 mg/dL (8.4-10.2); Hemolysis Index 1
[2019-09-28] MEDS: FAMOTIDINE 20 MG TAB PO SCH ×2 (09:30→21:44)
[2019-09-28] MEDS: ASPIRIN EC 325 MG TAB PO SCH (09:31)
[2019-09-28] MEDS: POTASSIUM CHLORIDE ER 10 MEQ TAB PO SCH (09:33)
[2019-09-28] MEDS: MULTIVITAMINS,THER W-MINERALS TAB PO SCH (09:33)
[2019-09-28] MEDS: MAGNESIUM OXIDE 400 MG TAB PO SCH (09:33)
[2019-09-28] MEDS: DOCUSATE SODIUM 100 MG CAP PO SCH ×2 (09:33→21:45)
[2019-09-28] MEDS: SPIRONOLACTONE 25 MG TAB PO SCH ×2 (09:35→21:44)
[2019-09-28] MEDS: METOPROLOL SUCCINATE XL 100 MG TAB PO SCH (09:35)
[2019-09-28] MEDS: VALSARTAN 160MG TAB PO SCH ×2 (09:35→21:44)
--- NOTE | 2019-09-28 10:20 | Progress Note ---
Subjective Date of service: 09/28/19 Principal diagnosis: Altered mental status /metabolic encephalopathy Interval history: 59-year-old female who presented with altered mental status to the ER. Symptoms were consistent with CVA however CT head and MRI brain did not bear this out. CT head dated 09/17/2019 showed advanced microvascular ischemic changes similar with prior imaging, along with multiple remote small infarcts there were unchanged from prior and no acute abnormalities. MRI brain showed significant signal abnormality in both cerebral hemispheres with PRES as a consideration versus viral versus demyelinating disease. No focal mass or ischemia was appreciated there is a small nonaggressive appearing right parotid lesion as well noted incidentally. Neurology was consulted and stated that the multiple ischemic changes were all very minor but in toto could be causal for the altered mental status and encephalopathy. Patient was restarted on most of her home medications with some changes notably in the BILLY inhibitor which was changed to an ARB. Blood pressure has been and is still intermittently elevated. She was noted to have lymphopenia initially which later improved. She also had hypokalemia which was replaced. She does have medications at her bedside from home which show that she was on potassium replacement previously. Carotid Dopplers showed no significant disease in either side. Echocardiogram showed trace mitral regurg, mild tricuspid regurg, trace aortic regurg, left ventricular chamber normal with mild concentric hypertrophy. Ejection fraction estimated at 50-55%. Patient was also seen in the hospital back in 2013 for possible ischemic stroke. Neurologist note at that point stated that the CT scan of the brain showed no acute abnormalities but did show a few small lacunar infarcts that were chronic in nature. Brain MRI showed 3 small acute ischemic strokes including the largest of which which was subcortically in the posterior right frontal lobe and 2 in the left frontal and right frontal lobe subcortically. Patient was stabilized and seen by therapy. She was felt to be a good candidate for rehab and once medically stable was transferred for acute inpatient rehabilitation. All available medical records have been reviewed. Plan of care was discussed with patient. Patient is difficult to understand but with some effort can be understood and is interactive albeit slowly. Interval History: Patient is more interactive today. +BM. Denies pain, palpitations, dyspnea, cough, N/V, or joint pain. Does admit to arthritis however does not have pain currently, states is mostly in her hands. Advise therapy to attempt to get her into therapy later in the day as opposed to this morning. Spoke with OT and it appears that she does work much better in the afternoon. We will attempt to do a co-treat and or schedule everything in the afternoon. Discussed weights again with nursing, they will attempt to get a good weight this morning. Altered mental status/metabolic encephalopathy: Decreased interaction may be due to metabolic encephalopathy. Continue to monitor for improvement Hypertension: Blood pressure better overall. However she was checked this morning at about 4 AM and was elevated, PRN hydralazine was given with a resultant drop in blood pressure to 97/59. Discussed with nursing and agree with the plan to recheck prior to giving hydralazine to ensure that the blood pressure is correct. Hypomagnesemia: Improved, continue oral Mag-Ox. Hypokalemia: Corrected, continue low-dose oral replacement Tobacco abuse: Continue low-dose nicotine patch. CVA, chronic: Continue medications for secondary stroke prevention. Does not appear to have post stroke depression or worsening neurological signs. Dysarthria: Understandable however does have slowed speech and difficulty with word enunciation. Speech therapy has signed off due to patient's lack of participation. May reconsult if this improves. Uncertain if this is part of her metabolic encephalopathy or if she is not amenable to mornings. Moderate protein malnutrition: Continue oral supplements. Prealbumin is low at 0.112. We will change the patient's diet to mechanical soft with ground meats to see if this improves her appetite. Leukopenia: Stable to slightly improved today. Attempted to consult heme-onc however was told that they no longer come to the hospital. All records, vitals, labs and medications were reviewed. No other issues per patient, nursing or therapy. Objective - Exam Narrative Exam: MUSCULOSKELETAL SPECIALTY EXAM CONSTITUTIONAL: Well developed, poorly nourished, appropriately groomed, thin. RIGHT hand dominant. RESPIRATORY: Clear to auscultation bilaterally, no increased work of breathing CARDIOVASCULAR: Regular Rate/ Rhythm, no swelling, edema or tenderness in BUE or BLE. All extremities warm. GI: + bowel sounds, soft, NTTP, nondistended. INTEGUMENTARY: Normal, no lesion, rash, masses or bruising noted in extremities. MUSCULOSKELETAL: BUE and BLE normal without defect, crepitus, subluxation, effusion, or TTP. Mild swelling in left hand, no tenderness to palpation (patient relates this to arthritis) R 4-/5 upper extremity, 3/5 lower extremity L 4-/5 upper extremity, 3/5 lower extremity ROM decreased in legs due to weakness otherwise normal Tone within normal limits NEURO: CN II - XII grossly intact Sensation intact in all extremities without extinction. No tremor noted in 4 extremities. Aphasia not appreciated Dysarthria present Dysphagia not appreciated. Neglect not appreciated POSTURE and GAIT: Sitting posture good. Balance and gait deferred until seen with therapy. PSYCH: Alert and oriented today, patient more interactive than previous, affect appears flattened, insight appears impaired. - Constitutional Vitals: Vital Signs - 12hr 09/27/19 09/28/19 09/28/19 23:24 03:44 07:33 Temperature 97.6 F 98.4 F 98.0 F Pulse Rate 80 107 H Respiratory 16 16 16 Rate Blood Pressure 126/86 183/115 97/59 O2 Sat by Pulse 97 100 Oximetry - Allied health notes Allied health notes reviewed: nursing, PT, OT - Labs CBC & Chem 7: 09/28/19 08:06 09/28/19 08:06 Labs: Laboratory Results - last 72 hr 09/26/19 09/26/19 09/28/19 06:33 06:33 08:06 WBC 2.0 L 2.6 L RBC 3.22 L 3.40 L Hgb 9.8 L 10.5 Hct 29.4 L 30.6 MCV 91 90 MCH 30 31 MCHC 33 34 RDW 16.1 H 15.6 H Plt Count 124 L 180 Sodium 140 Potassium 4.2 Chloride 103.1 Carbon Dioxide 27 Anion Gap 14 BUN 21 H Creatinine 0.7 Estimated GFR > 60 BUN/Creatinine Ratio 30 Glucose 87 Calcium 8.3 L 09/28/19 08:06 WBC RBC Hgb Hct MCV MCH MCHC RDW Plt Count Sodium 136 L Potassium 4.5 Chloride 98.8 Carbon Dioxide 26 Anion Gap 16 BUN 19 H Creatinine 0.7 Estimated GFR > 60 BUN/Creatinine Ratio 27 Glucose 98 Calcium 8.6 Assessment and Plan Altered mental status/metabolic encephalopathy: Seems to be clearing. Continue to monitor for any further signs of decline or improvement. CVA, chronic: Continue secondary stroke prevention utilizing antithrombotic, statin, blood pressure control and lifestyle modifications. Monitor for recurrent stroke or poststroke recrudescence. Continue neuromotor therapy as above. Family training when available. Monitor for poststroke depression, cognitive deficits. Follow-up with neurology at discharge. Dysarthria: Speech therapy signed off, continue to encourage patient to speak slowly and enunciate so that she is well understood. Dysphagia: Resolved/cleared by speech therapy. Continue current diet due to edentulousness. Speech therapy signed off. Hypertension: Continue medications with hold parameters. Monitor blood pressure and adjust medications as needed for normotension. Hold for hypotension Insomnia: Continue home mirtazapine. Discussed sleep hygiene. Monitor for improvement Tobacco cessation: Continue nicotine patch. Hypomagnesemia: Continue home Mag-Ox. Hypokalemia: Continue oral replacement and monitor for adjustment. Moderate protein malnutrition: Prealbumin low. Continue oral supplements, she has variable intake of these. Adjust diet to mechanical soft with ground meats to improve oral intake. Leukopenia: Heme-onc consult not available any longer. Will attempt to replace nutritional deficits and monitor for improvement. ADL dysfunction: OT will work on improving ability to perform ADLs (including assistive devices) to increase independence and decrease caregiver burden and improve functional transfers and mobility training. Difficulty walking: PT will work on gait training and proper use of assistive devices and advance as appropriate to use of stairs and outside ambulation on uneven surfaces. Unsteadiness on feet: PT will work on improving static and dynamic sitting and standing balance as well as proper use of assistive devices to decrease risk of falls. Abnormality of gait: PT will work to improve safety and efficiency of gait through neuromotor training and gait training along with instruction on proper use of assistive devices. Muscle weakness: PT & OT will work on strengthening exercises to improve functional strength including mixture of closed and open kinetic chain exercises. Debility: PT & OT will work on improving overall functional status to improve participation with ADLs, mobility and social involvement. Fatigue: PT & OT will work on improving endurance through aerobic exercises and therapeutic activity while monitoring patients tolerance for activity and vital signs as needed. DVT ppx: Heparin Pain: Continue physical modalities in therapy and pain medications as needed to achieve functional pain control. Sleep: Monitor and address as needed. Bowel: Monitor and address as needed. Appetite: Monitor and address as needed. Discharge planning: Pending therapy progress and care plan meeting. Will continue discussion with therapy team, SW, patient and family. Restrictions/ Precautions: Falls WB status: FWB Functional Hx: ADLs: Needed assistance Cognition: Independent Mobility: Wheelchair/rolling walker Barriers to Discharge: Decreased mobility and ability to perform self care, balance deficits, weakness, cognitive deficits, dysarthria Estimated Length of Stay: 1214 days Discharge Destination: Home with family versus half-way facility pending patient's participation
[2019-09-28] MEDS: NICOTINE 7 MG/24 HR PATCH TD SCH (16:10)
[2019-09-28] MEDS: MIRTAZAPINE 15 MG TAB PO SCH (21:49)
[2019-09-29] MEDS: hydrALAZINE 25 MG TAB PO SCH ×3 (06:18→23:05)
[2019-09-29] MEDS: HEPARIN 5,000 UNIT/1 ML VIAL SUB-Q SCH ×3 (06:18→23:05)
--- NOTE | 2019-09-29 09:34 | Progress Note ---
Subjective Date of service: 09/29/19 Principal diagnosis: Altered mental status /metabolic encephalopathy Interval history: 59-year-old female who presented with altered mental status to the ER. Symptoms were consistent with CVA however CT head and MRI brain did not bear this out. CT head dated 09/17/2019 showed advanced microvascular ischemic changes similar with prior imaging, along with multiple remote small infarcts there were unchanged from prior and no acute abnormalities. MRI brain showed significant signal abnormality in both cerebral hemispheres with PRES as a consideration versus viral versus demyelinating disease. No focal mass or ischemia was appreciated there is a small nonaggressive appearing right parotid lesion as well noted incidentally. Neurology was consulted and stated that the multiple ischemic changes were all very minor but in toto could be causal for the altered mental status and encephalopathy. Patient was restarted on most of her home medications with some changes notably in the BILLY inhibitor which was changed to an ARB. Blood pressure has been and is still intermittently elevated. She was noted to have lymphopenia initially which later improved. She also had hypokalemia which was replaced. She does have medications at her bedside from home which show that she was on potassium replacement previously. Carotid Dopplers showed no significant disease in either side. Echocardiogram showed trace mitral regurg, mild tricuspid regurg, trace aortic regurg, left ventricular chamber normal with mild concentric hypertrophy. Ejection fraction estimated at 50-55%. Patient was also seen in the hospital back in 2013 for possible ischemic stroke. Neurologist note at that point stated that the CT scan of the brain showed no acute abnormalities but did show a few small lacunar infarcts that were chronic in nature. Brain MRI showed 3 small acute ischemic strokes including the largest of which which was subcortically in the posterior right frontal lobe and 2 in the left frontal and right frontal lobe subcortically. Patient was stabilized and seen by therapy. She was felt to be a good candidate for rehab and once medically stable was transferred for acute inpatient rehabilitation. All available medical records have been reviewed. Plan of care was discussed with patient. Patient is difficult to understand but with some effort can be understood and is interactive albeit slowly. Interval History: Patient is more interactive today. -BM. Denies pain, palpitations, dyspnea, cough, N/V, or joint pain. Does admit to arthritis however does not have pain currently, states is mostly in her hands. Advise therapy to attempt to get her into therapy later in the day as opposed to this morning, work much better with therapy yesterday in the afternoon. Hopefully this will continue and we can progress her to be safe to return home versus going to a care home. New weights are obtained by nursing and it does appear that she is approximately 93 pounds or so. Altered mental status/metabolic encephalopathy: Decreased interaction may be due to metabolic encephalopathy. Patient does state that she is not a morning person and prefers activities in the afternoon. Continue to monitor for improvement Hypertension: Blood pressure better overall. Hypomagnesemia: Improved, continue oral Mag-Ox. Hypokalemia: Corrected, continue low-dose oral replacement Tobacco abuse: Continue low-dose nicotine patch. CVA, chronic: Continue medications for secondary stroke prevention. Does not appear to have post stroke depression or worsening neurological signs. Dysarthria: Understandable however does have slowed speech and difficulty with word enunciation. Speech therapy has signed off due to patient's lack of participation. May reconsult if this improves. Uncertain if this is part of her metabolic encephalopathy or if she is not amenable to mornings. Moderate protein malnutrition: Continue oral supplements. Prealbumin is low at 0.112. Changed the patient's diet to mechanical soft with ground meats to see if this improves her appetite. Leukopenia: Stable to slightly improved. Attempted to consult heme-onc however was told that they no longer come to the hospital. All records, vitals, labs and medications were reviewed. No other issues per patient, nursing or therapy. Objective - Exam Narrative Exam: MUSCULOSKELETAL SPECIALTY EXAM CONSTITUTIONAL: Well developed, poorly nourished, appropriately groomed, thin. RIGHT hand dominant. RESPIRATORY: Clear to auscultation bilaterally, no increased work of breathing CARDIOVASCULAR: Regular Rate/ Rhythm, no swelling, edema or tenderness in BUE or BLE. All extremities warm. GI: + bowel sounds, soft, NTTP, nondistended. INTEGUMENTARY: Normal, no lesion, rash, masses or bruising noted in extremities. MUSCULOSKELETAL: BUE and BLE normal without defect, crepitus, subluxation, effusion, or TTP. Mild swelling in left hand, no tenderness to palpation (patient relates this to arthritis) R 4-/5 upper extremity, 4-/5 lower extremity L 4-/5 upper extremity, 4-/5 lower extremity ROM decreased in legs due to weakness otherwise normal Tone within normal limits NEURO: CN II - XII grossly intact Sensation intact in all extremities without extinction. No tremor noted in 4 extremities. Aphasia not appreciated Dysarthria present Dysphagia not appreciated. Neglect not appreciated POSTURE and GAIT: Sitting posture good. Balance and gait deferred until seen with therapy. PSYCH: Alert and oriented, patient more interactive than previous, affect appears flattened, insight appears impaired. - Constitutional Vitals: Vital Signs - 12hr 09/28/19 09/28/19 09/28/19 21:44 21:45 22:00 Temperature Pulse Rate 90 90 Respiratory Rate Blood Pressure 100/69 100/69 O2 Sat by Pulse 94 Oximetry 09/28/19 09/29/19 09/29/19 23:27 04:31 06:18 Temperature 98.4 F 98.7 F Pulse Rate 100 H 80 80 Respiratory 18 16 Rate Blood Pressure 107/71 120/66 120/66 O2 Sat by Pulse 99 78 L Oximetry - Allied health notes Allied health notes reviewed: nursing, PT, OT - Labs CBC & Chem 7: 09/28/19 08:06 09/28/19 08:06 Labs: Laboratory Results - last 72 hr 09/28/19 09/28/19 08:06 08:06 WBC 2.6 L RBC 3.40 L Hgb 10.5 Hct 30.6 MCV 90 MCH 31 MCHC 34 RDW 15.6 H Plt Count 180 Sodium 136 L Potassium 4.5 Chloride 98.8 Carbon Dioxide 26 Anion Gap 16 BUN 19 H Creatinine 0.7 Estimated GFR > 60 BUN/Creatinine Ratio 27 Glucose 98 Calcium 8.6 Assessment and Plan Altered mental status/metabolic encephalopathy: Seems to be clearing. Continue to monitor for any further signs of decline or improvement. CVA, chronic: Continue secondary stroke prevention utilizing antithrombotic, statin, blood pressure control and lifestyle modifications. Monitor for recurrent stroke or poststroke recrudescence. Continue neuromotor therapy as above. Family training when available. Monitor for poststroke depression, cognitive deficits. Follow-up with neurology at discharge. Dysarthria: Speech therapy signed off, continue to encourage patient to speak s lowly and enunciate so that she is well understood. Dysphagia: Resolved/cleared by speech therapy. Continue current diet due to edentulousness. Speech therapy signed off. Hypertension: Continue medications with hold parameters. Monitor blood pressure and adjust medications as needed for normotension. Hold for hypotension Insomnia: Continue home mirtazapine. Discussed sleep hygiene. Monitor for improvement Tobacco cessation: Continue nicotine patch. Hypomagnesemia: Continue home Mag-Ox. Hypokalemia: Continue oral replacement and monitor for adjustment. Moderate protein malnutrition: Prealbumin low. Continue oral supplements, she has variable intake of these. Adjust diet to mechanical soft with ground meats to improve oral intake. Leukopenia: Heme-onc consult not available any longer. Will attempt to replace nutritional deficits and monitor for improvement. ADL dysfunction: OT will work on improving ability to perform ADLs (including assistive devices) to increase independence and decrease caregiver burden and improve functional transfers and mobility training. Difficulty walking: PT will work on gait training and proper use of assistive devices and advance as appropriate to use of stairs and outside ambulation on uneven surfaces. Unsteadiness on feet: PT will work on improving static and dynamic sitting and standing balance as well as proper use of assistive devices to decrease risk of falls. Abnormality of gait: PT will work to improve safety and efficiency of gait through neuromotor training and gait training along with instruction on proper use of assistive devices. Muscle weakness: PT & OT will work on strengthening exercises to improve functional strength including mixture of closed and open kinetic chain exercises. Debility: PT & OT will work on improving overall functional status to improve participation with ADLs, mobility and social involvement. Fatigue: PT & OT will work on improving endurance through aerobic exercises and therapeutic activity while monitoring patients tolerance for activity and vital signs as needed. DVT ppx: Heparin Pain: Continue physical modalities in therapy and pain medications as needed to achieve functional pain control. Sleep: Monitor and address as needed. Bowel: Monitor and address as needed. Appetite: Monitor and address as needed. Discharge planning: Pending therapy progress and care plan meeting. Will continue discussion with therapy team, SW, patient and family. Restrictions/ Precautions: Falls WB status: FWB Functional Hx: ADLs: Needed assistance Cognition: Independent Mobility: Wheelchair/rolling walker Barriers to Discharge: Decreased mobility and ability to perform self care, balance deficits, weakness, cognitive deficits, dysarthria Estimated Length of Stay: 1214 days Discharge Destination: Home with family versus [facility] facility pending patient's participation
[2019-09-29] MEDS: VALSARTAN 160MG TAB PO SCH ×2 (10:00→23:03)
[2019-09-29] MEDS: SPIRONOLACTONE 25 MG TAB PO SCH ×2 (10:00→23:04)
[2019-09-29] MEDS: DOCUSATE SODIUM 100 MG CAP PO SCH ×3 (10:00→23:03)
[2019-09-29] MEDS: ASPIRIN EC 325 MG TAB PO SCH ×2 (10:00→17:31)
[2019-09-29] MEDS: METOPROLOL SUCCINATE XL 100 MG TAB PO SCH (10:00)
[2019-09-29] MEDS: MULTIVITAMINS,THER W-MINERALS TAB PO SCH ×2 (10:00→17:32)
[2019-09-29] MEDS: POTASSIUM CHLORIDE ER 10 MEQ TAB PO SCH ×2 (10:00→17:31)
[2019-09-29] MEDS: MAGNESIUM OXIDE 400 MG TAB PO SCH ×2 (10:00→17:32)
[2019-09-29] MEDS: FAMOTIDINE 20 MG TAB PO SCH ×3 (10:00→23:03)
[2019-09-29] MEDS: NICOTINE 7 MG/24 HR PATCH TD SCH (10:28)
[2019-09-29] MEDS: MIRTAZAPINE 15 MG TAB PO SCH (23:04)
[2019-09-30] MEDS: HEPARIN 5,000 UNIT/1 ML VIAL SUB-Q SCH ×3 (06:28→22:02)
[2019-09-30] MEDS: hydrALAZINE 25 MG TAB PO SCH (06:29)
[2019-09-30 07:21] LABS: Hematocrit 28.5 % (30.3-42.9); Hemoglobin 9.8 gm/dl (10.1-14.3); Mean Corpuscular HGB Conc 34 % (30-34); Mean Corpuscular Volume 91 fl (79-97); Platelet Count 136 K/mm3 (140-440); Red Blood Count 3.13 M/mm3 (3.65-5.03); Red Cell Distribution Width 16.1 % (13.2-15.2)
[2019-09-30 07:44] LABS: BUN/Creatinine Ratio 28; Blood Urea Nitrogen 25 mg/dL (7-17); Calcium 8.4 mg/dL (8.4-10.2); Hemolysis Index 6
[2019-09-30] MEDS: ASPIRIN EC 325 MG TAB PO SCH (10:00)
[2019-09-30] MEDS: VALSARTAN 160MG TAB PO SCH (10:00)
[2019-09-30] MEDS: MAGNESIUM OXIDE 400 MG TAB PO SCH (10:00)
[2019-09-30] MEDS: METOPROLOL SUCCINATE XL 100 MG TAB PO SCH (10:00)
[2019-09-30] MEDS: FAMOTIDINE 20 MG TAB PO SCH ×2 (10:00→22:02)
[2019-09-30] MEDS: DOCUSATE SODIUM 100 MG CAP PO SCH ×2 (10:00→22:02)
[2019-09-30] MEDS: NICOTINE 7 MG/24 HR PATCH TD SCH (10:00)
[2019-09-30] MEDS: MULTIVITAMINS,THER W-MINERALS TAB PO SCH (10:00)
[2019-09-30] MEDS: SPIRONOLACTONE 25 MG TAB PO SCH ×2 (10:00→22:01)
[2019-09-30] MEDS: POTASSIUM CHLORIDE ER 10 MEQ TAB PO SCH (10:00)
--- NOTE | 2019-09-30 11:33 | Progress Note ---
Subjective Date of service: 09/30/19 Principal diagnosis: Altered mental status /metabolic encephalopathy Interval history: 59-year-old female who presented with altered mental status to the ER. Symptoms were consistent with CVA however CT head and MRI brain did not bear this out. CT head dated 09/17/2019 showed advanced microvascular ischemic changes similar with prior imaging, along with multiple remote small infarcts there were unchanged from prior and no acute abnormalities. MRI brain showed significant signal abnormality in both cerebral hemispheres with PRES as a consideration versus viral versus demyelinating disease. No focal mass or ischemia was appreciated there is a small nonaggressive appearing right parotid lesion as well noted incidentally. Neurology was consulted and stated that the multiple ischemic changes were all very minor but in toto could be causal for the altered mental status and encephalopathy. Patient was restarted on most of her home medications with some changes notably in the BILLY inhibitor which was changed to an ARB. Blood pressure has been and is still intermittently elevated. She was noted to have lymphopenia initially which later improved. She also had hypokalemia which was replaced. She does have medications at her bedside from home which show that she was on potassium replacement previously. Carotid Dopplers showed no significant disease in either side. Echocardiogram showed trace mitral regurg, mild tricuspid regurg, trace aortic regurg, left ventricular chamber normal with mild concentric hypertrophy. Ejection fraction estimated at 50-55%. Patient was also seen in the hospital back in 2013 for possible ischemic stroke. Neurologist note at that point stated that the CT scan of the brain showed no acute abnormalities but did show a few small lacunar infarcts that were chronic in nature. Brain MRI showed 3 small acute ischemic strokes including the largest of which which was subcortically in the posterior right frontal lobe and 2 in the left frontal and right frontal lobe subcortically. Patient was stabilized and seen by therapy. She was felt to be a good candidate for rehab and once medically stable was transferred for acute inpatient rehabilitation. All available medical records have been reviewed. Plan of care was discussed with patient. Patient is difficult to understand but with some effort can be understood and is interactive albeit slowly. Interval History: Patient is more interactive today. +BM. Denies pain, palpitations, dyspnea, cough, N/V, or joint pain. Does admit to arthritis however does not have pain currently, states is mostly in her hands and she is currently wearing gloves w hich helps. Advise therapy to attempt to get her into therapy later in the day as opposed to morning. Does appear that she is better suited to afternoon therapy sessions. We will continue this and work with her for another week or so to ensure a safe transition home. IV has been in the neck since she was admitted. Will request that they remove this and obtain a peripheral IV preferably in the arm. Altered mental status/metabolic encephalopathy: Continue to monitor for improvement Hypertension: Blood pressure better overall. Hypomagnesemia: Improved, continue oral Mag-Ox. Hypokalemia: Corrected, continue low-dose oral replacement Tobacco abuse: Continue low-dose nicotine patch. CVA, chronic: Continue medications for secondary stroke prevention. Does not appear to have post stroke depression or worsening neurological signs. Dysarthria: Understandable however does have slowed speech and difficulty with word enunciation. Speech therapy has signed off due to patient's lack of p articipation. May reconsult if this improves. Uncertain if this is part of her metabolic encephalopathy or if she is not amenable to mornings. Moderate protein malnutrition: Continue oral supplements. Prealbumin is low at 0.112. Appetite improved with consistency change. Leukopenia: Stable to slightly improved. Attempted to consult heme-onc however was told that they no longer come to the hospital. Patient discussed during team conference. She is making progress with the adjustment of her schedule to have therapy in the afternoons. She is min to mod assist with most activities. Will need to continue to work with therapy for about another 7 days to improve her ability to transition home safely and back to her previous level of function. We will continue discussed with available nursing since we are not on the rehab floor and encourage them to help her from a rehab standpoint. Reportedly she was in the chair for most of the day until 7 PM yesterday which really wiped her out. She should be up for several hours at a time but not up all day. She does have the ability to transfer to a bedside commode which is in the room however due to lack of therapy personnel she is oft entimes not having that option. Will work to adjust to current setting and make the best of the situation. All records, vitals, labs and medications were reviewed. No other issues per patient, nursing or therapy. Objective - Exam Narrative Exam: MUSCULOSKELETAL SPECIALTY EXAM CONSTITUTIONAL: Well developed, poorly nourished, appropriately groomed, thin. RIGHT hand dominant. RESPIRATORY: Clear to auscultation bilaterally, no increased work of breathing CARDIOVASCULAR: Regular Rate/ Rhythm, no swelling, edema or tenderness in BUE or BLE. All extremities warm. GI: + bowel sounds, soft, NTTP, nondistended. INTEGUMENTARY: Normal, no lesion, rash, masses or bruising noted in extremities. MUSCULOSKELETAL: BUE and BLE normal without defect, crepitus, subluxation, effusion, or TTP. Mild swelling in left hand, no tenderness to palpation (patient relates this to arthritis) R 4-/5 upper extremity, 4-/5 lower extremity L 4-/5 upper extremity, 4-/5 lower extremity ROM decreased in legs due to weakness otherwise normal Tone within normal limits NEURO: CN II - XII grossly intact Sensation intact in all extremities without extinction. No tremor noted in 4 extremities. Aphasia not appreciated Dysarthria present but improving Dysphagia not appreciated. Neglect not appreciated POSTURE and GAIT: Sitting posture good. Balance and gait fair with slowed christiano as well as loss of balance and use of rolling walker and mod assist. PSYCH: Alert and oriented, patient more interactive than previous, affect appears flattened, insight appears impaired. - Constitutional Vitals: Vital Signs - 12hr 09/30/19 09/30/19 09/30/19 01:07 03:39 07:48 Temperature 97.8 F 97.4 F L Pulse Rate 88 83 Pulse Rate [ 96 H Radial] Respiratory 18 18 18 Rate Blood Pressure 130/67 102/60 O2 Sat by Pulse 99 97 99 Oximetry - Allied health notes Allied health notes reviewed: nursing, PT, OT - Labs CBC & Chem 7: 09/30/19 06:59 09/30/19 06:59 Labs: Laboratory Results - last 72 hr 09/28/19 09/28/19 09/30/19 08:06 08:06 06:59 WBC 2.6 L 1.5 L* RBC 3.40 L 3.13 L Hgb 10.5 9.8 L Hct 30.6 28.5 L MCV 90 91 MCH 31 31 MCHC 34 34 RDW 15.6 H 16.1 H Plt Count 180 136 L Sodium 136 L Potassium 4.5 Chloride 98.8 Carbon Dioxide 26 Anion Gap 16 BUN 19 H Creatinine 0.7 Estimated GFR > 60 BUN/Creatinine Ratio 27 Glucose 98 Calcium 8.6 Magnesium 09/30/19 06:59 WBC RBC Hgb Hct MCV MCH MCHC RDW Plt Count Sodium 138 Potassium 4.4 Chloride 100.9 Carbon Dioxide 25 Anion Gap 17 BUN 25 H Creatinine 0.9 Estimated GFR > 60 BUN/Creatinine Ratio 28 Glucose 81 Calcium 8.4 Magnesium 2.20 Assessment and Plan Altered mental status/metabolic encephalopathy: Seems to be clearing. Continue to monitor for any further signs of decline or improvement. CVA, chronic: Continue secondary stroke prevention utilizing antithrombotic, statin, blood pressure control and lifestyle modifications. Monitor for recurrent stroke or poststroke recrudescence. Continue neuromotor therapy as above. Family training when available. Monitor for poststroke depression, cognitive deficits. Follow-up with neurology at discharge. Dysarthria: Speech therapy signed off, continue to encourage patient to speak slowly and enunciate so that she is well understood. Dysphagia: Resolved/cleared by speech therapy. Continue current diet due to edentulousness. Speech therapy signed off. Hypertension: Continue medications with hold parameters. Monitor blood pressure and adjust medications as needed for normotension. Hold for hypotension Insomnia: Continue home mirtazapine. Discussed sleep hygiene. Monitor for improvement Tobacco cessation: Continue nicotine patch. Hypomagnesemia: Continue home Mag-Ox. Hypokalemia: Continue oral replacement and monitor for adjustment. Moderate protein malnutrition: Prealbumin low. Continue oral supplements, she has variable intake of these. Adjust diet to mechanical soft with ground meats to improve oral intake. Leukopenia: Heme-onc consult not available any longer. Will attempt to replace nutritional deficits and monitor for improvement. ADL dysfunction: OT will work on improving ability to perform ADLs (including assistive devices) to increase independence and decrease caregiver burden and improve functional transfers and mobility training. Difficulty walking: PT will work on gait training and proper use of assistive devices and advance as appropriate to use of stairs and outside ambulation on uneven surfaces. Unsteadiness on feet: PT will work on improving static and dynamic sitting and standing balance as well as proper use of assistive devices to decrease risk of falls. Abnormality of gait: PT will work to improve safety and efficiency of gait through neuromotor training and gait training along with instruction on proper use of assistive devices. Muscle weakness: PT & OT will work on strengthening exercises to improve functional strength including mixture of closed and open kinetic chain exercises. Debility: PT & OT will work on improving overall functional status to improve participation with ADLs, mobility and social involvement. Fatigue: PT & OT will work on improving endurance through aerobic exercises and therapeutic activity while monitoring patients tolerance for activity and vital signs as needed. DVT ppx: Heparin Pain: Continue physical modalities in therapy and pain medications as needed to achieve functional pain control. Sleep: Monitor and address as needed. Bowel: Monitor and address as needed. Appetite: Monitor and address as needed. Discharge planning: Pending therapy progress and care plan meeting. Will co ntinue discussion with therapy team, SW, patient and family. After team conference today we would like to keep the patient for another 7 days and discharge home. Restrictions/ Precautions: Falls WB status: FWB Functional Hx: ADLs: Needed assistance Cognition: Independent Mobility: Wheelchair/rolling walker Barriers to Discharge: Decreased mobility and ability to perform self care, balance deficits, weakness, cognitive deficits, dysarthria Estimated Length of Stay: 1214 days Discharge Destination: Home with family versus custodial facility pending patient's participation
[2019-09-30] MEDS: VALSARTAN 40 MG TAB PO SCH (22:01)
[2019-09-30] MEDS: MIRTAZAPINE 15 MG TAB PO SCH (22:01)
[2019-10-01] MEDS: HEPARIN 5,000 UNIT/1 ML VIAL SUB-Q SCH ×3 (05:33→21:39)
[2019-10-01] MEDS: POTASSIUM CHLORIDE ER 10 MEQ TAB PO SCH (10:11)
[2019-10-01] MEDS: NICOTINE 7 MG/24 HR PATCH TD SCH (10:11)
[2019-10-01] MEDS: ASPIRIN EC 325 MG TAB PO SCH (10:11)
[2019-10-01] MEDS: DOCUSATE SODIUM 100 MG CAP PO SCH ×2 (10:11→21:38)
[2019-10-01] MEDS: SPIRONOLACTONE 25 MG TAB PO SCH (10:11)
[2019-10-01] MEDS: METOPROLOL SUCCINATE XL 100 MG TAB PO SCH (10:11)
[2019-10-01] MEDS: VALSARTAN 40 MG TAB PO SCH ×2 (10:11→21:37)
[2019-10-01] MEDS: FAMOTIDINE 20 MG TAB PO SCH ×3 (10:12→21:38)
[2019-10-01] MEDS: MULTIVITAMINS,THER W-MINERALS TAB PO SCH (10:12)
[2019-10-01] MEDS: MAGNESIUM OXIDE 400 MG TAB PO SCH (10:12)
[2019-10-01] MEDS: ACETAMINOPHEN 325 MG TAB PO PRN (10:42)
--- NOTE | 2019-10-01 11:11 | Progress Note ---
Subjective Date of service: 10/01/19 Principal diagnosis: Altered mental status /metabolic encephalopathy Interval history: 59-year-old female who presented with altered mental status to the ER. Symptoms were consistent with CVA however CT head and MRI brain did not bear this out. CT head dated 09/17/2019 showed advanced microvascular ischemic changes similar with prior imaging, along with multiple remote small infarcts there were unchanged from prior and no acute abnormalities. MRI brain showed significant signal abnormality in both cerebral hemispheres with PRES as a consideration versus viral versus demyelinating disease. No focal mass or ischemia was appreciated there is a small nonaggressive appearing right parotid lesion as well noted incidentally. Neurology was consulted and stated that the multiple ischemic changes were all very minor but in toto could be causal for the altered mental status and encephalopathy. Patient was restarted on most of her home medications with some changes notably in the BILLY inhibitor which was changed to an ARB. Blood pressure has been and is still intermittently elevated. She was noted to have lymphopenia initially which later improved. She also had hypokalemia which was replaced. She does have medications at her bedside from home which show that she was on potassium replacement previously. Carotid Dopplers showed no significant disease in either side. Echocardiogram showed trace mitral regurg, mild tricuspid regurg, trace aortic regurg, left ventricular chamber normal with mild concentric hypertrophy. Ejection fraction estimated at 50-55%. Patient was also seen in the hospital back in 2013 for possible ischemic stroke. Neurologist note at that point stated that the CT scan of the brain showed no acute abnormalities but did show a few small lacunar infarcts that were chronic in nature. Brain MRI showed 3 small acute ischemic strokes including the largest of which which was subcortically in the posterior right frontal lobe and 2 in the left frontal and right frontal lobe subcortically. Patient was stabilized and seen by therapy. She was felt to be a good candidate for rehab and once medically stable was transferred for acute inpatient rehabilitation. All available medical records have been reviewed. Plan of care was discussed with patient. Patient is difficult to understand but with some effort can be understood and is interactive albeit slowly. Interval History: Patient is more interactive today. +BM. Denies pain, palpitations, dyspnea, cough, N/V. Does admit to arthritis pain, states it is mostly in her hands and she is currently wearing gloves which helps. Advise therapy to attempt to get her into therapy later in the day as opposed to morning. Does appear that she is better suited to afternoon therapy sessions. We will continue this and work with her for another week or so to ensure a safe transition home. Altered mental status/metabolic encephalopathy: Continue to monitor for improvement. Seems to have cleared for the most part. Hypertension: Blood pressure better overall. However she does tend to run on the lower side currently. Medications are being held on a regular basis. Have discontinued and adjusted medications accordingly. Diovan dose decreased, Spironolactone discontinued, hydralazine discontinued and changed to as needed. Hypomagnesemia: Improved, continue oral Mag-Ox. Hypokalemia: Corrected. We will stop oral replacement and see how she does over the weekend recheck on Friday. Tobacco abuse: Continue low-dose nicotine patch. CVA, chronic: Continue medications for secondary stroke prevention. Does not appear to have post stroke depression or worsening neurological signs. Dysarthria: Understandable however does have slowed speech and difficulty with word enunciation. Speech therapy has signed off due to patient's lack of participation. May reconsult if this improves. Uncertain if this is part of her metabolic encephalopathy or if she is not amenable to mornings. Moderate protein malnutrition: Continue oral supplements. Prealbumin is low at 0.112. Appetite improved with consistency change. Found out patient does have dentures today, however she does not like to wear them. Questioned if they fit properly and she said yes, just does not like to wear them. Leukopenia: Stable. Attempted to consult heme-onc however was told that they no longer come to the hospital. Will need to have a outpatient consult with heme- onc at discharge All records, vitals, labs and medications were reviewed. No other issues per patient, nursing or therapy. Objective - Exam Narrative Exam: MUSCULOSKELETAL SPECIALTY EXAM CONSTITUTIONAL: Well developed, poorly nourished, appropriately groomed, thin. RIGHT hand dominant. RESPIRATORY: Clear to auscultation bilaterally, no increased work of breathing CARDIOVASCULAR: Regular Rate/ Rhythm, no swelling, edema or tenderness in BUE or BLE. All extremities warm. GI: + bowel sounds, soft, NTTP, nondistended. INTEGUMENTARY: Normal, no lesion, rash, masses or bruising noted in extremities. MUSCULOSKELETAL: BUE and BLE normal without defect, crepitus, subluxation, effusion, or TTP. Mild swelling in left hand, and bilateral knees, no tenderness to palpation (patient relates this to arthritis) R 4-/5 upper extremity, 4-/5 lower extremity L 4-/5 upper extremity, 4-/5 lower extremity ROM improving in legs otherwise normal Tone within normal limits NEURO: CN II - XII grossly intact Sensation intact in all extremities without extinction. No tremor noted in 4 extremities. Aphasia not appreciated Dysarthria present but improving Dysphagia not appreciated. Neglect not appreciated POSTURE and GAIT: Sitting posture good. Balance and gait fair with slowed christiano as well as loss of balance and use of rolling walker and mod assist. PSYCH: Alert and oriented, patient more interactive than previous, affect appears flattened, insight appears impaired. - Constitutional Vitals: Vital Signs - 12hr 10/01/19 10/01/19 10/01/19 00:05 00:28 04:22 Temperature 97.4 F L 97.7 F Pulse Rate 95 H 97 H Pulse Rate [ 93 H Radial] Respiratory 20 16 20 Rate Blood Pressure 112/70 104/65 O2 Sat by Pulse 98 97 100 Oximetry 10/01/19 07:50 Temperature 98.3 F Pulse Rate 95 H Pulse Rate [ Radial] Respiratory 15 Rate Blood Pressure 105/70 O2 Sat by Pulse 100 Oximetry - Allied health notes Allied health notes reviewed: nursing, PT, OT - Labs CBC & Chem 7: 09/30/19 06:59 09/30/19 06:59 Labs: Laboratory Results - last 72 hr 09/30/19 09/30/19 06:59 06:59 WBC 1.5 L* RBC 3.13 L Hgb 9.8 L Hct 28.5 L MCV 91 MCH 31 MCHC 34 RDW 16.1 H Plt Count 136 L Sodium 138 Potassium 4.4 Chloride 100.9 Carbon Dioxide 25 Anion Gap 17 BUN 25 H Creatinine 0.9 Estimated GFR > 60 BUN/Creatinine Ratio 28 Glucose 81 Calcium 8.4 Magnesium 2.20 Assessment and Plan Altered mental status/metabolic encephalopathy: Seems to be clearing. Continue to monitor for any further signs of decline or improvement. CVA, chronic: Continue secondary stroke prevention utilizing antithrombotic, statin, blood pressure control and lifestyle modifications. Monitor for recurrent stroke or poststroke recrudescence. Continue neuromotor therapy as above. Family training when available. Monitor for poststroke depression, cognitive deficits. Follow-up with neurology at discharge. Dysarthria: Speech therapy signed off, continue to encourage patient to speak slowly and enunciate so that she is well understood. Dysphagia: Resolved/cleared by speech therapy. Continue current diet due to edentulousness. Speech therapy signed off. Hypertension: Continue medications with hold parameters. Monitor blood pressure and adjust medications as needed for normotension. Hold for hypotension. Medications adjusted due to hypotension and consistent holding. Insomnia: Continue home mirtazapine. Discussed sleep hygiene. Monitor for improvement Tobacco cessation: Continue nicotine patch. Hypomagnesemia: Continue home Mag-Ox. Hypokalemia: Discontinue oral replacement and monitor. Moderate protein malnutrition: Prealbumin low. Continue oral supplements, she has variable intake of these. Adjust diet to mechanical soft with ground meats to improve oral intake. Leukopenia: Heme-onc consult not available any longer. Will attempt to replace nutritional deficits and monitor for improvement. Will need outpatient heme-onc consult. ADL dysfunction: OT will work on improving ability to perform ADLs (including assistive devices) to increase independence and decrease caregiver burden and improve functional transfers and mobility training. Difficulty walking: PT will work on gait training and proper use of assistive devices and advance as appropriate to use of stairs and outside ambulation on uneven surfaces. Unsteadiness on feet: PT will work on improving static and dynamic sitting and standing balance as well as proper use of assistive devices to decrease risk of falls. Abnormality of gait: PT will work to improve safety and efficiency of gait through neuromotor training and gait training along with instruction on proper use of assistive devices. Muscle weakness: PT & OT will work on strengthening exercises to improve functional strength including mixture of closed and open kinetic chain exercises. Debility: PT & OT will work on improving overall functional status to improve participation with ADLs, mobility and social involvement. Fatigue: PT & OT will work on improving endurance through aerobic exercises and therapeutic activity while monitoring patients tolerance for activity and vital signs as needed. DVT ppx: Heparin Pain: Continue physical modalities in therapy and pain medications as needed to achieve functional pain control. Sleep: Monitor and address as needed. Bowel: Monitor and address as needed. Appetite: Monitor and address as needed. Discharge planning: Pending therapy progress and care plan meeting. Will continue discussion with therapy team, SW, patient and family. After team conference we would like to keep the patient for another 7 days and discharge home on or Friday of next week. Restrictions/ Precautions: Falls WB status: FWB Functional Hx: ADLs: Needed assistance Cognition: Independent Mobility: Wheelchair/rolling walker Barriers to Discharge: Decreased mobility and ability to perform self care, balance deficits, weakness, cognitive deficits, dysarthria Estimated Length of Stay: 1214 days Discharge Destination: Home with family versus custodial facility pending patient's participation
[2019-10-01] MEDS: MIRTAZAPINE 15 MG TAB PO SCH (21:38)
[2019-10-02] MEDS: HEPARIN 5,000 UNIT/1 ML VIAL SUB-Q SCH ×3 (06:10→22:49)
[2019-10-02] MEDS: VALSARTAN 40 MG TAB PO SCH ×2 (12:58→22:48)
[2019-10-02] MEDS: DOCUSATE SODIUM 100 MG CAP PO SCH ×2 (12:58→22:48)
[2019-10-02] MEDS: ASPIRIN EC 325 MG TAB PO SCH (12:58)
[2019-10-02] MEDS: MULTIVITAMINS,THER W-MINERALS TAB PO SCH (12:58)
[2019-10-02] MEDS: MAGNESIUM OXIDE 400 MG TAB PO SCH (12:59)
[2019-10-02] MEDS: FAMOTIDINE 20 MG TAB PO SCH ×2 (12:59→22:48)
[2019-10-02] MEDS: METOPROLOL SUCCINATE XL 100 MG TAB PO SCH (12:59)
[2019-10-02] MEDS: NICOTINE 7 MG/24 HR PATCH TD SCH (12:59)
[2019-10-02] MEDS: MIRTAZAPINE 15 MG TAB PO SCH (22:48)
[2019-10-03] MEDS: HEPARIN 5,000 UNIT/1 ML VIAL SUB-Q SCH ×3 (05:37→22:50)
[2019-10-03] MEDS: VALSARTAN 40 MG TAB PO SCH ×2 (10:00→22:50)
[2019-10-03] MEDS: METOPROLOL SUCCINATE XL 100 MG TAB PO SCH (10:10)
[2019-10-03] MEDS: DOCUSATE SODIUM 100 MG CAP PO SCH ×2 (17:15→22:50)
[2019-10-03] MEDS: MAGNESIUM OXIDE 400 MG TAB PO SCH (17:15)
[2019-10-03] MEDS: FAMOTIDINE 20 MG TAB PO SCH ×2 (17:15→22:50)
[2019-10-03] MEDS: NICOTINE 7 MG/24 HR PATCH TD SCH (17:16)
[2019-10-03] MEDS: ASPIRIN EC 325 MG TAB PO SCH (17:16)
[2019-10-03] MEDS: MULTIVITAMINS,THER W-MINERALS TAB PO SCH (17:16)
[2019-10-03] MEDS: MIRTAZAPINE 15 MG TAB PO SCH (22:50)
[2019-10-04] MEDS: HEPARIN 5,000 UNIT/1 ML VIAL SUB-Q SCH ×3 (06:34→22:00)
[2019-10-04] MEDS: VALSARTAN 40 MG TAB PO SCH ×3 (09:33→21:57)
[2019-10-04] MEDS: ASPIRIN EC 325 MG TAB PO SCH ×2 (09:33→13:56)
[2019-10-04] MEDS: MULTIVITAMINS,THER W-MINERALS TAB PO SCH ×2 (09:33→13:56)
[2019-10-04] MEDS: FAMOTIDINE 20 MG TAB PO SCH ×3 (09:33→21:59)
[2019-10-04] MEDS: DOCUSATE SODIUM 100 MG CAP PO SCH ×3 (09:33→21:59)
[2019-10-04] MEDS: MAGNESIUM OXIDE 400 MG TAB PO SCH ×2 (09:33→13:56)
[2019-10-04] MEDS: METOPROLOL SUCCINATE XL 100 MG TAB PO SCH ×2 (09:33→13:56)
[2019-10-04 09:50] LABS: Hematocrit 29.4 % (30.3-42.9); Hemoglobin 9.9 gm/dl (10.1-14.3); Mean Corpuscular HGB Conc 34 % (30-34); Mean Corpuscular Volume 92 fl (79-97); Platelet Count 112 K/mm3 (140-440); Red Blood Count 3.21 M/mm3 (3.65-5.03); Red Cell Distribution Width 16.1 % (13.2-15.2)
[2019-10-04 09:58] LABS: BUN/Creatinine Ratio 31; Blood Urea Nitrogen 22 mg/dL (7-17); Calcium 8.3 mg/dL (8.4-10.2); Hemolysis Index 3
--- NOTE | 2019-10-04 10:46 | Progress Note ---
Subjective Date of service: 10/04/19 Principal diagnosis: Altered mental status /metabolic encephalopathy Interval history: 59-year-old female who presented with altered mental status to the ER. Symptoms were consistent with CVA however CT head and MRI brain did not bear this out. CT head dated 09/17/2019 showed advanced microvascular ischemic changes similar with prior imaging, along with multiple remote small infarcts there were unchanged from prior and no acute abnormalities. MRI brain showed significant signal abnormality in both cerebral hemispheres with PRES as a consideration versus viral versus demyelinating disease. No focal mass or ischemia was appreciated there is a small nonaggressive appearing right parotid lesion as well noted incidentally. Neurology was consulted and stated that the multiple ischemic changes were all very minor but in toto could be causal for the altered mental status and encephalopathy. Patient was restarted on most of her home medications with some changes notably in the BILLY inhibitor which was changed to an ARB. Blood pressure has been and is still intermittently elevated. She was noted to have lymphopenia initially which later improved. She also had hypokalemia which was replaced. She does have medications at her bedside from home which show that she was on potassium replacement previously. Carotid Dopplers showed no significant disease in either side. Echocardiogram showed trace mitral regurg, mild tricuspid regurg, trace aortic regurg, left ventricular chamber normal with mild concentric hypertrophy. Ejection fraction estimated at 50-55%. Patient was also seen in the hospital back in 2013 for possible ischemic stroke. Neurologist note at that point stated that the CT scan of the brain showed no acute abnormalities but did show a few small lacunar infarcts that were chronic in nature. Brain MRI showed 3 small acute ischemic strokes including the largest of which which was subcortically in the posterior right frontal lobe and 2 in the left frontal and right frontal lobe subcortically. Patient was stabilized and seen by therapy. She was felt to be a good candidate for rehab and once medically stable was transferred for acute inpatient rehabilitation. All available medical records have been reviewed. Plan of care was discussed with patient. Patient is difficult to understand but with some effort can be understood and is interactive albeit slowly. Interval History: Patient is less interactive today even though it is almost 11 AM. She is also refusing medications today. Advised her that this is good to make it difficult to send her home on correct medication since her blood pressure has been uyen iable and medications have been hold and or refused on a regular basis. May need to reconsider sending her to a fpc if she continues having days like this. -BM. Denies pain, palpitations, dyspnea, cough, N/V. Does admit to arthritis pain, states it is mostly in her hands and she is currently wearing gloves which helps. Apparently patient had a fall on 10/01 at 2340. I was not notified of this however nursing did assess the patient and contacted in-house hospitalist at the time. Denies any tenderness or pain from the fall. Altered mental status/metabolic encephalopathy: Continue to monitor for improvement. Seems to have cleared for the most part. Hypertension: Blood pressure better overall. However she does tend to run on the lower side currently. Medications are being held on a regular basis. Have discontinued and adjusted medications accordingly. Diovan dose decreased, Spironolactone discontinued, hydralazine discontinued and changed to as needed. Dehydration: BUN/creatinine ratio has been increasing. Patient does have decreased oral intake. Will give IV fluids and recheck. Hypomagnesemia: Improved, stable, continue oral Mag-Ox. Hypokalemia: Still within normal limits but trending down. Recheck tomorrow after IV fluids today. Tobacco abuse: Continue low-dose nicotine patch. CVA, chronic: Continue medications for secondary stroke prevention. Does not appear to have post stroke depression or worsening neurological signs. Dysarthria: Understandable however does have slowed speech and difficulty with word enunciation. Speech therapy has signed off due to patient's lack of participation. May reconsult if this improves. Uncertain if this is part of her metabolic encephalopathy or if she is not amenable to mornings. Moderate protein malnutrition: Discontinue oral supplements as patient is refusing to utilize them. Prealbumin is low at 0.112. Appetite improved with consistency change. Found out patient does have dentures today, however she does not like to wear them. Questioned if they fit properly and she said yes, just does not like to wear them. Leukopenia: Stable. Attempted to consult heme-onc however was told that they no longer come to the hospital. Will need to have a outpatient consult with heme- onc at discharge All records, vitals, labs and medications were reviewed. No other issues per patient, nursing or therapy. Objective - Exam Narrative Exam: MUSCULOSKELETAL SPECIALTY EXAM CONSTITUTIONAL: Well developed, poorly nourished, appropriately groomed, thin. RIGHT hand dominant. RESPIRATORY: Clear to auscultation bilaterally, no increased work of breathing CARDIOVASCULAR: Regular Rate/ Rhythm, no swelling, edema or tenderness in BUE or BLE. All extremities warm. GI: + bowel sounds, soft, NTTP, nondistended. INTEGUMENTARY: Normal, no lesion, rash, masses or bruising noted in extremities. MUSCULOSKELETAL: BUE and BLE normal without defect, crepitus, subluxation, effusion, or TTP. Mild swelling in left hand, and bilateral knees, no tenderness to palpation (patient relates this to arthritis) R 4-/5 upper extremity, 4-/5 lower extremity L 4-/5 upper extremity, 4-/5 lower extremity ROM improving in legs otherwise normal Tone within normal limits NEURO: CN II - XII grossly intact Sensation intact in all extremities without extinction. No tremor noted in 4 extremities. Aphasia not appreciated Dysarthria present but improving Dysphagia not appreciated. Neglect not appreciated POSTURE and GAIT: Sitting posture good. Balance and gait fair with slowed christiano as well as loss of balance and use of rolling walker and mod assist. PSYCH: Alert and oriented, patient less interactive than previous, affect appears flattened, insight appears impaired. - Constitutional Vitals: Vital Signs - 12hr 10/03/19 10/03/19 10/03/19 22:50 23:00 23:19 Temperature 99.0 F Pulse Rate 95 H 92 H Pulse Rate [ 96 H Apical] Respiratory 18 20 Rate Blood Pressure 125/50 110/71 O2 Sat by Pulse 99 99 Oximetry 10/04/19 10/04/19 05:03 08:02 Temperature 97.4 F L 98.6 F Pulse Rate 78 83 Pulse Rate [ Apical] Respiratory 20 16 Rate Blood Pressure 105/76 109/63 O2 Sat by Pulse 98 98 Oximetry - Labs CBC & Chem 7: 10/04/19 08:20 10/04/19 08:20 Labs: Laboratory Results - last 72 hr 10/04/19 10/04/19 08:20 08:20 WBC 1.8 L* RBC 3.21 L Hgb 9.9 L Hct 29.4 L MCV 92 MCH 31 MCHC 34 RDW 16.1 H Plt Count 112 L Sodium 139 Potassium 4.1 Chloride 103.2 Carbon Dioxide 26 Anion Gap 14 BUN 22 H Creatinine 0.7 Estimated GFR > 60 BUN/Creatinine Ratio 31 Glucose 80 Calcium 8.3 L Magnesium 2.20 Assessment and Plan Altered mental status/metabolic encephalopathy: Seems to be clearing. Continue to monitor for any further signs of decline or improvement. CVA, chronic: Continue secondary stroke prevention utilizing antithrombotic, statin, blood pressure control and lifestyle modifications. Monitor for recurre nt stroke or poststroke recrudescence. Continue neuromotor therapy as above. Family training when available. Monitor for poststroke depression, cognitive deficits. Follow-up with neurology at discharge. Dysarthria: Speech therapy signed off, continue to encourage patient to speak slowly and enunciate so that she is well understood. Dysphagia: Resolved/cleared by speech therapy. Continue current diet due to edentulousness. Speech therapy signed off. Falls: Continue to monitor patient for any signs of pain. Bed alarm should be kept on when patient is in bed. Patient should be reminded frequently not to get up without assistance. Call light should always be within reach. Dehydration: Patient continues to have poor oral intake despite encouragement. BUN/creatinine ratio increasing. We will give normal saline x1 L Hypertension: Continue medications with hold parameters. Monitor blood pressure and adjust medications as needed for normotension. Hold for hypotension. Medic ations adjusted due to hypotension and consistent holding. Insomnia: Continue home mirtazapine. Discussed sleep hygiene. Monitor for improvement Tobacco cessation: Continue nicotine patch. Hypomagnesemia: Continue home Mag-Ox. Hypokalemia: Discontinue oral replacement and monitor. Moderate protein malnutrition: Prealbumin low. Discontinue oral supplements, she is refusing to utilize them and there are numerous in her room. Adjust diet to mechanical soft with ground meats to improve oral intake. Leukopenia: Heme-onc consult not available any longer. Will attempt to replace nutritional deficits and monitor for improvement. Will need outpatient heme-onc consult. ADL dysfunction: OT will work on improving ability to perform ADLs (including assistive devices) to increase independence and decrease caregiver burden and improve functional transfers and mobility training. Difficulty walking: PT will work on gait training and proper use of assistive devices and advance as appropriate to use of stairs and outside ambulation on uneven surfaces. Unsteadiness on feet: PT will work on improving static and dynamic sitting and standing balance as well as proper use of assistive devices to decrease risk of falls. Abnormality of gait: PT will work to improve safety and efficiency of gait through neuromotor training and gait training along with instruction on proper use of assistive devices. Muscle weakness: PT & OT will work on strengthening exercises to improve functional strength including mixture of closed and open kinetic chain exercises. Debility: PT & OT will work on improving overall functional status to improve participation with ADLs, mobility and social involvement. Fatigue: PT & OT will work on improving endurance through aerobic exercises and therapeutic activity while monitoring patients tolerance for activity and vital signs as needed. DVT ppx: Heparin Pain: Continue physical modalities in therapy and pain medications as needed to achieve functional pain control. Sleep: Monitor and address as needed. Bowel: Monitor and address as needed. Appetite: Monitor and address as needed. Discharge planning: Pending therapy progress and care plan meeting. Will continue discussion with therapy team, SW, patient and family. After team conference we would like to keep the patient for another 7 days and discharge home on or Friday of next week. Restrictions/ Precautions: Falls WB status: FWB Functional Hx: ADLs: Needed assistance Cognition: Independent Mobility: Wheelchair/rolling walker Barriers to Discharge: Decreased mobility and ability to perform self care, balance deficits, weakness, cognitive deficits, dysarthria Estimated Length of Stay: 1214 days Discharge Destination: Home with family versus half-way facility pending patient's participation
[2019-10-04] MEDS ORDERED: SODIUM CHLORIDE 0.9% 1000 ML 1,000 ML IV SCH (11:00)
[2019-10-04] MEDS: NICOTINE 7 MG/24 HR PATCH TD SCH (13:53)
[2019-10-04] MEDS: MIRTAZAPINE 15 MG TAB PO SCH (21:59)
[2019-10-05] MEDS: HEPARIN 5,000 UNIT/1 ML VIAL SUB-Q SCH ×3 (06:55→21:58)
--- NOTE | 2019-10-05 10:40 | Progress Note ---
Subjective Date of service: 10/05/19 Principal diagnosis: Altered mental status /metabolic encephalopathy Interval history: 59-year-old female who presented with altered mental status to the ER. Symptoms were consistent with CVA however CT head and MRI brain did not bear this out. CT head dated 09/17/2019 showed advanced microvascular ischemic changes similar with prior imaging, along with multiple remote small infarcts there were unchanged from prior and no acute abnormalities. MRI brain showed significant signal abnormality in both cerebral hemispheres with PRES as a consideration versus viral versus demyelinating disease. No focal mass or ischemia was appreciated there is a small nonaggressive appearing right parotid lesion as well noted incidentally. Neurology was consulted and stated that the multiple ischemic changes were all very minor but in toto could be causal for the altered mental status and encephalopathy. Patient was restarted on most of her home medications with some changes notably in the BILLY inhibitor which was changed to an ARB. Blood pressure has been and is still intermittently elevated. She was noted to have lymphopenia initially which later improved. She also had hypokalemia which was replaced. She does have medications at her bedside from home which show that she was on potassium replacement previously. Carotid Dopplers showed no significant disease in either side. Echocardiogram showed trace mitral regurg, mild tricuspid regurg, trace aortic regurg, left ventricular chamber normal with mild concentric hypertrophy. Ejection fraction estimated at 50-55%. Patient was also seen in the hospital back in 2013 for possible ischemic stroke. Neurologist note at that point stated that the CT scan of the brain showed no acute abnormalities but did show a few small lacunar infarcts that were chronic in nature. Brain MRI showed 3 small acute ischemic strokes including the largest of which which was subcortically in the posterior right frontal lobe and 2 in the left frontal and right frontal lobe subcortically. Patient was stabilized and seen by therapy. She was felt to be a good candidate for rehab and once medically stable was transferred for acute inpatient rehabilitation. All available medical records have been reviewed. Plan of care was discussed with patient. Patient is difficult to understand but with some effort can be understood and is interactive albeit slowly. Interval History: Patient seems more interactive today May need to reconsider sending her to a long-term if she continues having days like this. -BM. Denies pain, palpitations, dyspnea, cough, N/V. Does admit to arthritis pain, states it is mostly in her hands and she is currently wearing gloves which helps. Altered mental status/metabolic encephalopathy: Continue to monitor for improvement. Seems to have cleared for the most part. Hypertension: Blood pressure better overall. However she does tend to run on the lower side currently. Medications are being held on a regular basis. Have discontinued and adjusted medications accordingly. Diovan dose decreased, Spironolactone discontinued, hydralazine discontinued and changed to as needed. Dehydration: Completed IV normal saline. Recheck BMP Hypomagnesemia: Improved, stable, continue oral Mag-Ox. Hypokalemia: Still within normal limits but trending down. Recheck tomorrow aft er IV fluids today. Tobacco abuse: Continue low-dose nicotine patch. CVA, chronic: Continue medications for secondary stroke prevention. Does not appear to have post stroke depression or worsening neurological signs. Dysarthria: Understandable however does have slowed speech and difficulty with w ord enunciation. Speech therapy has signed off due to patient's lack of participation. May reconsult if this improves. Uncertain if this is part of her metabolic encephalopathy or if she is not amenable to mornings. Moderate protein malnutrition: Discontinue oral supplements as patient is refusing to utilize them. Prealbumin is low at 0.112. Appetite improved with consistency change. Found out patient does have dentures today, however she does not like to wear them. Questioned if they fit properly and she said yes, just does not like to wear them. Leukopenia: Stable. Attempted to consult heme-onc however was told that they no longer come to the hospital. Will need to have a outpatient consult with heme- onc at discharge All records, vitals, labs and medications were reviewed. No other issues per patient, nursing or therapy. Objective - Exam Narrative Exam: MUSCULOSKELETAL SPECIALTY EXAM CONSTITUTIONAL: Well developed, poorly nourished, appropriately groomed, thin. RIGHT hand dominant. RESPIRATORY: Clear to auscultation bilaterally, no increased work of breathing CARDIOVASCULAR: Regular Rate/ Rhythm, no swelling, edema or tenderness in BUE or BLE. All extremities warm. GI: + bowel sounds, soft, NTTP, nondistended. INTEGUMENTARY: Normal, no lesion, rash, masses or bruising noted in extremities. MUSCULOSKELETAL: BUE and BLE normal without defect, crepitus, subluxation, effusion, or TTP. Mild swelling in left hand, and bilateral knees, no tenderness to palpation (patient relates this to arthritis) R 4-/5 upper extremity, 4-/5 lower extremity L 4-/5 upper extremity, 4-/5 lower extremity ROM improving in legs otherwise normal Tone within normal limits NEURO: CN II - XII grossly intact Sensation intact in all extremities without extinction. No tremor noted in 4 extremities. Aphasia not appreciated Dysarthria present but improving Dysphagia not appreciated. Neglect not appreciated POSTURE and GAIT: Sitting posture good. Balance and gait fair with slowed christiano as well as loss of balance and use of rolling walker and mod assist. PSYCH: Alert and oriented, patient at baseline as far as activity, affect appears flattened, insight appears impaired. - Constitutional Vitals: Vital Signs - 12hr 10/04/19 10/04/19 10/05/19 23:00 23:20 03:39 Temperature 98.5 F 98.4 F Pulse Rate 76 80 Pulse Rate [ 91 H Apical] Pulse Rate [ 91 H Radial] Respiratory 18 18 18 Rate Blood Pressure 136/82 143/85 O2 Sat by Pulse 100 99 99 Oximetry 10/05/19 08:49 Temperature 99.6 F Pulse Rate 92 H Pulse Rate [ Apical] Pulse Rate [ Radial] Respiratory 20 Rate Blood Pressure 152/100 O2 Sat by Pulse 100 Oximetry - Allied health notes Allied health notes reviewed: nursing - Labs CBC & Chem 7: 10/04/19 08:20 10/04/19 08:20 Labs: Laboratory Results - last 72 hr 10/04/19 10/04/19 08:20 08:20 WBC 1.8 L* RBC 3.21 L Hgb 9.9 L Hct 29.4 L MCV 92 MCH 31 MCHC 34 RDW 16.1 H Plt Count 112 L Sodium 139 Potassium 4.1 Chloride 103.2 Carbon Dioxide 26 Anion Gap 14 BUN 22 H Creatinine 0.7 Estimated GFR > 60 BUN/Creatinine Ratio 31 Glucose 80 Calcium 8.3 L Magnesium 2.20 Assessment and Plan Altered mental status/metabolic encephalopathy: Seems to be clearing. Continue to monitor for any further signs of decline or improvement. CVA, chronic: Continue secondary stroke prevention utilizing antithrombotic, statin, blood pressure control and lifestyle modifications. Monitor for recurrent stroke or poststroke recrudescence. Continue neuromotor therapy as above. Family training when available. Monitor for poststroke depression, cognitive deficits. Follow-up with neurology at discharge. Dysarthria: Speech therapy signed off, continue to encourage patient to speak slowly and enunciate so that she is well understood. Dysphagia: Resolved/cleared by speech therapy. Continue current diet due to edentulousness. Speech therapy signed off. Falls: Continue to monitor patient for any signs of pain. Bed alarm should be kept on when patient is in bed. Patient should be reminded frequently not to get up without assistance. Call light should always be within reach. Dehydration: Patient continues to have poor oral intake despite encouragement. Given normal saline x1 L Hypertension: Continue medications with hold parameters. Monitor blood pressure and adjust medications as needed for normotension. Hold for hypotension. Medications adjusted due to hypotension and consistent holding. Insomnia: Continue home mirtazapine. Discussed sleep hygiene. Monitor for improvement Tobacco cessation: Continue nicotine patch. Hypomagnesemia: Continue home Mag-Ox. Hypokalemia: Discontinue oral replacement and monitor. Moderate protein malnutrition: Prealbumin low. Discontinue oral supplements, she is refusing to utilize them and there are numerous in her room. Adjust diet to mechanical soft with ground meats to improve oral intake. Leukopenia: Heme-onc consult not available any longer. Will attempt to replace nutritional deficits and monitor for improvement. Will need outpatient heme-onc consult. ADL dysfunction: OT will work on improving ability to perform ADLs (including assistive devices) to increase independence and decrease caregiver burden and improve functional transfers and mobility training. Difficulty walking: PT will work on gait training and proper use of assistive devices and advance as appropriate to use of stairs and outside ambulation on uneven surfaces. Unsteadiness on feet: PT will work on improving static and dynamic sitting and standing balance as well as proper use of assistive devices to decrease risk of falls. Abnormality of gait: PT will work to improve safety and efficiency of gait through neuromotor training and gait training along with instruction on proper use of assistive devices. Muscle weakness: PT & OT will work on strengthening exercises to improve functional strength including mixture of closed and open kinetic chain exercises. Debility: PT & OT will work on improving overall functional status to improve participation with ADLs, mobility and social involvement. Fatigue: PT & OT will work on improving endurance through aerobic exercises and therapeutic activity while monitoring patients tolerance for activity and vital signs as needed. DVT ppx: Heparin Pain: Continue physical modalities in therapy and pain medications as needed to achieve functional pain control. Sleep: Monitor and address as needed. Bowel: Monitor and address as needed. Appetite: Monitor and address as needed. Discharge planning: Pending therapy progress and care plan meeting. Will continue discussion with therapy team, SW, patient and family. After team conference we would like to keep the patient for another 7 days and discharge ho me on or Friday of next week. Restrictions/ Precautions: Falls WB status: FWB Functional Hx: ADLs: Needed assistance Cognition: Independent Mobility: Wheelchair/rolling walker Barriers to Discharge: Decreased mobility and ability to perform self care, balance deficits, weakness, cognitive deficits, dysarthria Estimated Length of Stay: 1214 days Discharge Destination: Home with family versus [facility] facility pending patient's participation
[2019-10-05 11:53] LABS: BUN/Creatinine Ratio 32; Blood Urea Nitrogen 19 mg/dL (7-17); Calcium 8.4 mg/dL (8.4-10.2); Hemolysis Index 6
[2019-10-05] MEDS: FAMOTIDINE 20 MG TAB PO SCH ×2 (15:40→21:59)
[2019-10-05] MEDS: ASPIRIN EC 325 MG TAB PO SCH (15:40)
[2019-10-05] MEDS: METOPROLOL SUCCINATE XL 100 MG TAB PO SCH (15:40)
[2019-10-05] MEDS: MAGNESIUM OXIDE 400 MG TAB PO SCH (15:41)
[2019-10-05] MEDS: hydrALAZINE 10 MG TAB PO PRN (15:41)
[2019-10-05] MEDS: MULTIVITAMINS,THER W-MINERALS TAB PO SCH (15:41)
[2019-10-05] MEDS: DOCUSATE SODIUM 100 MG CAP PO SCH ×2 (15:41→21:59)
[2019-10-05] MEDS: NICOTINE 7 MG/24 HR PATCH TD SCH (18:30)
[2019-10-05] MEDS: MIRTAZAPINE 15 MG TAB PO SCH (21:58)
[2019-10-06] MEDS: HEPARIN 5,000 UNIT/1 ML VIAL SUB-Q SCH ×3 (05:38→21:44)
--- NOTE | 2019-10-06 11:14 | Progress Note ---
Subjective Date of service: 10/06/19 Principal diagnosis: Altered mental status /metabolic encephalopathy Interval history: 59-year-old female who presented with altered mental status to the ER. Symptoms were consistent with CVA however CT head and MRI brain did not bear this out. CT head dated 09/17/2019 showed advanced microvascular ischemic changes similar with prior imaging, along with multiple remote small infarcts there were unchanged from prior and no acute abnormalities. MRI brain showed significant signal abnormality in both cerebral hemispheres with PRES as a consideration versus viral versus demyelinating disease. No focal mass or ischemia was appreciated there is a small nonaggressive appearing right parotid lesion as well noted incidentally. Neurology was consulted and stated that the multiple ischemic changes were all very minor but in toto could be causal for the altered mental status and encephalopathy. Patient was restarted on most of her home medications with some changes notably in the BILLY inhibitor which was changed to an ARB. Blood pressure has been and is still intermittently elevated. She was noted to have lymphopenia initially which later improved. She also had hypokalemia which was replaced. She does have medications at her bedside from home which show that she was on potassium replacement previously. Carotid Dopplers showed no significant disease in either side. Echocardiogram showed trace mitral regurg, mild tricuspid regurg, trace aortic regurg, left ventricular chamber normal with mild concentric hypertrophy. Ejection fraction estimated at 50-55%. Patient was also seen in the hospital back in 2013 for possible ischemic stroke. Neurologist note at that point stated that the CT scan of the brain showed no acute abnormalities but did show a few small lacunar infarcts that were chronic in nature. Brain MRI showed 3 small acute ischemic strokes including the largest of which which was subcortically in the posterior right frontal lobe and 2 in the left frontal and right frontal lobe subcortically. Patient was stabilized and seen by therapy. She was felt to be a good candidate for rehab and once medically stable was transferred for acute inpatient rehabilitation. All available medical records have been reviewed. Plan of care was discussed with patient. Patient is difficult to understand but with some effort can be understood and is interactive albeit slowly. Interval History: Patient seems more interactive today may benefit from a day program at home once discharged. +BM. Spiked a low-grade fever (100.0) earlier today around 0830, I was called at approximately 1000 and the fever had dissipated (97.9) without intervention. No other signs or symptoms of respiratory distress, dysuria or other infectious disease process. Denies pain, palpitations, dyspnea, cough, N/V. Does admit to arthritis pain, states it is mostly in her hands and she is currently wearing gloves which helps. Still has intermittent participation with therapy, uncertain if this is related to volitional behavioral issues or encepha lopathy. Altered mental status/metabolic encephalopathy: Continue to monitor for improvement. Seems to have cleared for the most part. Hypertension: Blood pressure better overall. PRN hydralazine given yesterday, uncertain why. I do not see any blood pressure values that would have warranted this. We will continue to monitor her on current dosing which is decreased from previously and look to discharge her on a lower dose of 2 medications. Dehydration: Continue to encourage oral intake. Hypomagnesemia: Improved, stable, continue oral Mag-Ox. Hypokalemia: Stable, continue to monitor. Tobacco abuse: Continue low-dose nicotine patch. It appears she is now refusing the patch. CVA, chronic: Continue medications for secondary stroke prevention. Does not appear to have post stroke depression or worsening neurological signs. Dysarthria: Understandable however does have slowed speech and difficulty with word enunciation. Speech therapy has signed off due to patient's lack of participation. May reconsult if this improves. Uncertain if this is part of her metabolic encephalopathy or if she is not amenable to mornings. Moderate protein malnutrition: Discontinue oral supplements as patient is refusing to utilize them. Prealbumin is low at 0.112. Appetite improved with consistency change. Patient does have dentures however does not like to wear them and states that they do fit okay. Leukopenia: Stable. Attempted to consult heme-onc however was told that they no longer come to the hospital. Will need to have a outpatient consult with heme- onc at discharge All records, vitals, labs and medications were reviewed. No other issues per patient, nursing or therapy. Objective - Exam Narrative Exam: MUSCULOSKELETAL SPECIALTY EXAM CONSTITUTIONAL: Well developed, poorly nourished, appropriately groomed, thin. RIGHT hand dominant. RESPIRATORY: Clear to auscultation bilaterally, no increased work of breathing CARDIOVASCULAR: Regular Rate/ Rhythm, no swelling, edema or tenderness in BUE or BLE. All extremities warm. GI: + bowel sounds, soft, NTTP, nondistended. INTEGUMENTARY: Normal, no lesion, rash, masses or bruising noted in extremities. MUSCULOSKELETAL: BUE and BLE normal without defect, crepitus, subluxation, effusion, or TTP. Mild swelling in left hand, and bilateral knees, no tenderness to palpation (patient relates this to arthritis) R 4-/5 upper extremity, 4-/5 lower extremity L 4-/5 upper extremity, 4-/5 lower extremity ROM improving in legs otherwise normal Tone within normal limits NEURO: CN II - XII grossly intact Sensation intact in all extremities without extinction. No tremor noted in 4 extremities. Aphasia not appreciated Dysarthria present but improving Dysphagia not appreciated. Neglect not appreciated POSTURE and GAIT: Sitting posture good. Balance and gait fair with slowed christiano as well as some loss of balance and use of rolling walker and min assist. PSYCH: Alert and oriented, patient at baseline as far as activity, affect appears flattened, insight appears impaired. - Constitutional Vitals: Vital Signs - 12hr 10/06/19 10/06/19 10/06/19 04:08 08:31 10:06 Temperature 98.5 F 100.0 F H 97.9 F Pulse Rate 88 81 Respiratory 18 16 Rate Blood Pressure 137/86 128/80 O2 Sat by Pulse 100 100 Oximetry - Allied health notes Allied health notes reviewed: nursing, PT, OT - Labs CBC & Chem 7: 10/04/19 08:20 10/05/19 10:49 Labs: Laboratory Results - last 72 hr 10/04/19 10/04/19 10/05/19 08:20 08:20 10:49 WBC 1.8 L* RBC 3.21 L Hgb 9.9 L Hct 29.4 L MCV 92 MCH 31 MCHC 34 RDW 16.1 H Plt Count 112 L Sodium 139 141 Potassium 4.1 4.2 Chloride 103.2 103.1 Carbon Dioxide 26 26 Anion Gap 14 16 BUN 22 H 19 H Creatinine 0.7 0.6 L Estimated GFR > 60 > 60 BUN/Creatinine Ratio 31 32 Glucose 80 97 Calcium 8.3 L 8.4 Magnesium 2.20 Assessment and Plan Altered mental status/metabolic encephalopathy: Seems to be clearing. Continue to monitor for any further signs of decline or improvement. CVA, chronic: Continue secondary stroke prevention utilizing antithrombotic, statin, blood pressure control and lifestyle modifications. Monitor for recurrent stroke or poststroke recrudescence. Continue neuromotor therapy as above. Family training when available. Monitor for poststroke depression, cognitive deficits. Follow-up with neurology at discharge. Dysarthria: Speech therapy signed off, continue to encourage patient to speak slowly and enunciate so that she is well understood. Dysphagia: Resolved/cleared by speech therapy. Continue current diet due to edentulousness. Speech therapy signed off. Falls: Continue to monitor patient for any signs of pain. Bed alarm should be kept on when patient is in bed. Patient should be reminded frequently not to get up without assistance. Call light should always be within reach. Dehydration: Patient continues to have poor oral intake despite encouragement. Given normal saline x1 L Hypertension: Continue medications with hold parameters. Monitor blood pressure and adjust medications as needed for normotension. Hold for hypotension. Medications adjusted due to hypotension and consistent holding. Insomnia: Continue home mirtazapine. Discussed sleep hygiene. Monitor for improvement Tobacco cessation: Continue nicotine patch. Hypomagnesemia: Continue home Mag-Ox. Hypokalemia: Discontinue oral replacement and monitor. Stable Moderate protein malnutrition: Prealbumin low. Discontinue oral supplements, she is refusing to utilize them and there are numerous in her room. Adjust diet to mechanical soft with ground meats to improve oral intake. Leukopenia: Heme-onc consult not available any longer. Will attempt to replace nutritional deficits and monitor for improvement. Will need outpatient heme-onc consult. ADL dysfunction: OT will work on improving ability to perform ADLs (including assistive devices) to increase independence and decrease caregiver burden and improve functional transfers and mobility training. Difficulty walking: PT will work on gait training and proper use of assistive devices and advance as appropriate to use of stairs and outside ambulation on uneven surfaces. Unsteadiness on feet: PT will work on improving static and dynamic sitting and standing balance as well as proper use of assistive devices to decrease risk of falls. Abnormality of gait: PT will work to improve safety and efficiency of gait through neuromotor training and gait training along with instruction on proper use of assistive devices. Muscle weakness: PT & OT will work on strengthening exercises to improve functional strength including mixture of closed and open kinetic chain exercises. Debility: PT & OT will work on improving overall functional status to improve participation with ADLs, mobility and social involvement. Fatigue: PT & OT will work on improving endurance through aerobic exercises and therapeutic activity while monitoring patients tolerance for activity and vital signs as needed. DVT ppx: Heparin Pain: Continue physical modalities in therapy and pain medications as needed to achieve functional pain control. Sleep: Monitor and address as needed. Bowel: Monitor and address as needed. Appetite: Monitor and address as needed. Discharge planning: Pending therapy progress and care plan meeting. Will continue discussion with therapy team, SW, patient and family. After team conference we would like to keep the patient for another 7 days and discharge home on or Friday this week. Restrictions/ Precautions: Falls WB status: FWB Functional Hx: ADLs: Needed assistance Cognition: Independent Mobility: Wheelchair/rolling walker Barriers to Discharge: Decreased mobility and ability to perform self care, balance deficits, weakness, cognitive deficits, dysarthria Estimated Length of Stay: 1214 days Discharge Destination: Home with family versus long-term facility pending patient's participation
[2019-10-06] MEDS: MULTIVITAMINS,THER W-MINERALS TAB PO SCH (14:41)
[2019-10-06] MEDS: ASPIRIN EC 325 MG TAB PO SCH (14:41)
[2019-10-06] MEDS: NICOTINE 7 MG/24 HR PATCH TD SCH (14:41)
[2019-10-06] MEDS: FAMOTIDINE 20 MG TAB PO SCH ×2 (14:42→21:43)
[2019-10-06] MEDS: DOCUSATE SODIUM 100 MG CAP PO SCH ×2 (14:42→21:44)
[2019-10-06] MEDS: MAGNESIUM OXIDE 400 MG TAB PO SCH (14:42)
[2019-10-06] MEDS: METOPROLOL SUCCINATE XL 100 MG TAB PO SCH (14:42)
[2019-10-06] MEDS: LISINOPRIL 10 MG TAB PO SCH (14:42)
[2019-10-06] MEDS: MIRTAZAPINE 15 MG TAB PO SCH (21:43)
[2019-10-07] MEDS: HEPARIN 5,000 UNIT/1 ML VIAL SUB-Q SCH ×3 (06:27→22:30)
--- NOTE | 2019-10-07 11:14 | Progress Note ---
Subjective Date of service: 10/07/19 Principal diagnosis: Altered mental status /metabolic encephalopathy Interval history: 59-year-old female who presented with altered mental status to the ER. Symptoms were consistent with CVA however CT head and MRI brain did not bear this out. CT head dated 09/17/2019 showed advanced microvascular ischemic changes similar with prior imaging, along with multiple remote small infarcts there were unchanged from prior and no acute abnormalities. MRI brain showed significant signal abnormality in both cerebral hemispheres with PRES as a consideration versus viral versus demyelinating disease. No focal mass or ischemia was appreciated there is a small nonaggressive appearing right parotid lesion as well noted incidentally. Neurology was consulted and stated that the multiple ischemic changes were all very minor but in toto could be causal for the altered mental status and encephalopathy. Patient was restarted on most of her home medications with some changes notably in the BILLY inhibitor which was changed to an ARB. Blood pressure has been and is still intermittently elevated. She was noted to have lymphopenia initially which later improved. She also had hypokalemia which was replaced. She does have medications at her bedside from home which show that she was on potassium replacement previously. Carotid Dopplers showed no significant disease in either side. Echocardiogram showed trace mitral regurg, mild tricuspid regurg, trace aortic regurg, left ventricular chamber normal with mild concentric hypertrophy. Ejection fraction estimated at 50-55%. Patient was also seen in the hospital back in 2013 for possible ischemic stroke. Neurologist note at that point stated that the CT scan of the brain showed no acute abnormalities but did show a few small lacunar infarcts that were chronic in nature. Brain MRI showed 3 small acute ischemic strokes including the largest of which which was subcortically in the posterior right frontal lobe and 2 in the left frontal and right frontal lobe subcortically. Patient was stabilized and seen by therapy. She was felt to be a good candidate for rehab and once medically stable was transferred for acute inpatient rehabilitation. All available medical records have been reviewed. Plan of care was discussed with patient. Patient is difficult to understand but with some effort can be understood and is interactive albeit slowly. Interval History: Patient seems more interactive today may benefit from a day program at home once discharged. +BM. Denies pain, palpitations, dyspnea, cough, N/V. Does admit to arthritis pain, states it is mostly in her hands and she is currently wearing gloves which helps. Still has intermittent participation with therapy, uncertain if this is related to volitional behavioral issues or encephalopathy. Will discharge home tomorrow with home health. Altered mental status/metabolic encephalopathy: Continue to monitor for improvement. Seems to have cleared for the most part. Hypertension: Blood pressure better overall. Seems well controlled on current medications. Dehydration: Continue to encourage oral intake. Hypomagnesemia: Improved, stable, continue oral Mag-Ox. Hypokalemia: Stable, continue to monitor. Tobacco abuse: Continue low-dose nicotine patch. It appears she is now refusing the patch. CVA, chronic: Continue medications for secondary stroke prevention. Does not appear to have post stroke depression or worsening neurological signs. Dysarthria: Understandable however does have slowed speech and difficulty with word enunciation. Speech therapy has signed off due to patient's lack of participation. Moderate protein malnutrition: Discontinue oral supplements as patient is refusing to utilize them. Prealbumin is low at 0.112. Appetite improved with consistency change. Patient does have dentures however does not like to wear them and states that they do fit okay. Leukopenia: Stable. Attempted to consult heme-onc however was told that they no longer come to the hospital. Will need to have a outpatient consult with heme- onc at discharge Discussed during team conference. Progress and participation has been intermittent at best with patient refusing and/or giving pushback to therapy and medications at times. At other times she is doing fairly well and participating as needed. At this point she is CGA/min assist for ambulation utilizing a rolling walker, min assist with stairs, and CGA with transfers. Still is a high fall risk due to poor balance and some decreased safety awareness. She is mod assist with bathing, min assist with upper body dressing and max assist with lower body dressing. Toileting is mod assist currently. She will need 24/7 supervision at home. A day program would also be a good option if she would agree to it. All records, vitals, labs and medications were reviewed. No other issues per patient, nursing or therapy. Objective - Exam Narrative Exam: MUSCULOSKELETAL SPECIALTY EXAM CONSTITUTIONAL: Well developed, poorly nourished, appropriately groomed, thin. RIGHT hand dominant. RESPIRATORY: Clear to auscultation bilaterally, no increased work of breathing CARDIOVASCULAR: Regular Rate/ Rhythm, no swelling, edema or tenderness in BUE or BLE. All extremities warm. GI: + bowel sounds, soft, NTTP, nondistended. INTEGUMENTARY: Normal, no lesion, rash, masses or bruising noted in extremities. MUSCULOSKELETAL: BUE and BLE normal without defect, crepitus, subluxation, effusion, or TTP. Mild swelling in left hand, and bilateral knees, no tenderness to palpation (patient relates this to arthritis) R 4-/5 upper extremity, 4-/5 lower extremity L 4-/5 upper extremity, 4-/5 lower extremity ROM improving in legs otherwise normal Tone within normal limits NEURO: CN II - XII grossly intact Sensation intact in all extremities without extinction. No tremor noted in 4 extremities. Aphasia not appreciated Dysarthria present but improving Dysphagia not appreciated. Neglect not appreciated POSTURE and GAIT: Sitting posture good. Balance and gait fair with slowed christiano as well as some loss of balance and use of rolling walker and CGA. PSYCH: Alert and oriented, patient at baseline as far as activity, affect appears flattened, insight appears impaired. - Constitutional Vitals: Vital Signs - 12hr 10/07/19 10/07/19 00:15 04:11 Temperature 98.0 F 98.3 F Pulse Rate 74 77 Respiratory 18 20 Rate Blood Pressure 117/73 115/69 O2 Sat by Pulse 100 100 Oximetry - Allied health notes Allied health notes reviewed: nursing, PT, OT - Labs CBC & Chem 7: 10/04/19 08:20 10/05/19 10:49 Labs: Laboratory Results - last 72 hr 10/05/19 10:49 Sodium 141 Potassium 4.2 Chloride 103.1 Carbon Dioxide 26 Anion Gap 16 BUN 19 H Creatinine 0.6 L Estimated GFR > 60 BUN/Creatinine Ratio 32 Glucose 97 Calcium 8.4 Assessment and Plan Altered mental status/metabolic encephalopathy: Seems to be clearing. Continue to monitor for any further signs of decline or improvement. CVA, chronic: Continue secondary stroke prevention utilizing antithrombotic, statin, blood pressure control and lifestyle modifications. Monitor for recurrent stroke or poststroke recrudescence. Continue neuromotor therapy as above. Family training when available. Monitor for poststroke depression, cognitive deficits. Follow-up with neurology at discharge. Dysarthria: Speech therapy signed off, continue to encourage patient to speak slowly and enunciate so that she is well understood. Dysphagia: Resolved/cleared by speech therapy. Continue current diet due to edentulousness. Speech therapy signed off. Falls: Continue to monitor patient for any signs of pain. Bed alarm should be kept on when patient is in bed. Patient should be reminded frequently not to get up without assistance. Call light should always be within reach. Dehydration: Patient continues to have poor oral intake despite encouragement. Given normal saline x1 L Hypertension: Continue medications with hold parameters. Monitor blood pressure and adjust medications as needed for normotension. Hold for hypotension. Medications adjusted , BP improved Insomnia: Continue home mirtazapine. Discussed sleep hygiene. Monitor for improvement Tobacco cessation: Continue nicotine patch. Patient is refusing at times. Hypomagnesemia: Continue home Mag-Ox. Hypokalemia: Discontinue oral replacement and monitor. Stable Moderate protein malnutrition: Prealbumin low. Discontinue oral supplements, she is refusing to utilize them and there are numerous in her room. Adjust diet to mechanical soft with ground meats to improve oral intake. Leukopenia: Heme-onc consult not available any longer. Will attempt to replace nutritional deficits and monitor for improvement. Will need outpatient heme-onc consult. ADL dysfunction: OT will work on improving ability to perform ADLs (including assistive devices) to increase independence and decrease caregiver burden and improve functional transfers and mobility training. Difficulty walking: PT will work on gait training and proper use of assistive devices and advance as appropriate to use of stairs and outside ambulation on uneven surfaces. Unsteadiness on feet: PT will work on improving static and dynamic sitting and standing balance as well as proper use of assistive devices to decrease risk of falls. Abnormality of gait: PT will work to improve safety and efficiency of gait th rough neuromotor training and gait training along with instruction on proper use of assistive devices. Muscle weakness: PT & OT will work on strengthening exercises to improve functional strength including mixture of closed and open kinetic chain exercises. Debility: PT & OT will work on improving overall functional status to improve participation with ADLs, mobility and social involvement. Fatigue: PT & OT will work on improving endurance through aerobic exercises and therapeutic activity while monitoring patients tolerance for activity and vital signs as needed. DVT ppx: Heparin Pain: Continue physical modalities in therapy and pain medications as needed to achieve functional pain control. Sleep: Monitor and address as needed. Bowel: Monitor and address as needed. Appetite: Monitor and address as needed. Discharge planning: Pending therapy progress and care plan meeting. Will continue discussion with therapy team, SW, patient and family. Discharge home on Friday with home health. Will need 24/ supervision. Patient has decreased motivation for activity. Restrictions/ Precautions: Falls WB status: FWB Functional Hx: ADLs: Needed assistance Cognition: Independent Mobility: Wheelchair/rolling walker Barriers to Discharge: Decreased mobility and ability to perform self care, balance deficits, weakness, cognitive deficits, dysarthria Estimated Length of Stay: 1214 days Discharge Destination: Home with family versus [facility] facility pending patient's participation
[2019-10-07] MEDS: FAMOTIDINE 20 MG TAB PO SCH ×2 (15:23→22:30)
[2019-10-07] MEDS: DOCUSATE SODIUM 100 MG CAP PO SCH ×2 (15:23→22:30)
[2019-10-07] MEDS: ASPIRIN EC 325 MG TAB PO SCH (15:23)
[2019-10-07] MEDS: hydrALAZINE 10 MG TAB PO PRN (15:24)
[2019-10-07] MEDS: MULTIVITAMINS,THER W-MINERALS TAB PO SCH (15:25)
[2019-10-07] MEDS: LISINOPRIL 10 MG TAB PO SCH (15:25)
[2019-10-07] MEDS: METOPROLOL SUCCINATE XL 100 MG TAB PO SCH (15:26)
[2019-10-07] MEDS: MAGNESIUM OXIDE 400 MG TAB PO SCH (15:26)
[2019-10-07] MEDS: NICOTINE 7 MG/24 HR PATCH TD SCH (15:55)
[2019-10-07] MEDS: MIRTAZAPINE 15 MG TAB PO SCH (22:31)
[2019-10-08] MEDS: HEPARIN 5,000 UNIT/1 ML VIAL SUB-Q SCH ×2 (06:13→13:08)
--- NOTE | 2019-10-08 09:09 | Discharge Summary ---
Providers - Providers Date of Admission: 09/22/19 12:31 Date of discharge: 10/08/19 Attending physician: MATEO RADFORD III, MD 09/22/19 11:30 Occupational Therapy Evaluate and Treat [CONS] Routine Comment: Reason For Exam: ADL dysfunction Physical Therapy Evaluation and Treat [CONS] Routine Comment: Reason For Exam: Mobility Dysfunction Speech Therapy Evaluation and Treat [CONS] Routine Reason For Exam: Dysphagia/Speech/Cog 09/22/19 11:40 Consult to Case Management [CONS] Routine Services Needed at Discharge: Home Health Services Notified:: case management Primary care physician: SALES AND MARKETING REPRESENTATIVE Hospitalization Reason for admission: Altered mental status /metabolic encephalopathy Condition: Fair Hospital course: 59-year-old female who presented with altered mental status to the ER. Symptoms were consistent with CVA however CT head and MRI brain did not bear this out. CT head dated 09/17/2019 showed advanced microvascular ischemic changes similar with prior imaging, along with multiple remote small infarcts there were unchanged from prior and no acute abnormalities. MRI brain showed significant signal abnormality in both cerebral hemispheres with PRES as a consideration versus viral versus demyelinating disease. No focal mass or ischemia was appreciated there is a small nonaggressive appearing right parotid lesion as well noted incidentally. Neurology was consulted and stated that the multiple ischemic changes were all very minor but in toto could be causal for the altered mental status and encephalopathy. Patient was restarted on most of her home medications with some changes notably in the BILLY inhibitor which was changed to an ARB. Blood pressure has been and is still intermittently elevated. She was noted to have lymphopenia initially which later improved. She also had hypokalemia which was replaced. She does have medications at her bedside from home which show that she was on potassium replacement previously. Carotid Dopplers showed no significant disease in either side. Echocardiogram showed trace mitral regurg, mild tricuspid regurg, trace aortic regurg, left ventricular chamber normal with mild concentric hypertrophy. Ejection fraction estimated at 50-55%. Patient was also seen in the hospital back in 2013 for possible ischemic stroke. Neurologist note at that point stated that the CT scan of the brain showed no acute abnormalities but did show a few small lacunar infarcts that were chronic in nature. Brain MRI showed 3 small acute ischemic strokes including the largest of which which was subcortically in the posterior right frontal lobe and 2 in the left frontal and right frontal lobe subcortically. Patient was stabilized and seen by therapy. She was felt to be a good candidate for rehab and once medically stable was transferred for acute inpatient rehabilitation. All available medical records have been reviewed. Plan of care was discussed with patient. Patient is difficult to understand but with some effort can be understood and is interactive albeit slowly. Altered mental status/metabolic encephalopathy: Continue to monitor for improvement. Seems to have cleared for the most part. Hypertension: Blood pressure better overall. Seems well controlled on current medications. Will need to follow-up with PCP for continued monitoring and adjustment. Dehydration: Continue to encourage oral intake. Improved Hypomagnesemia: Improved, stable, continue oral Mag-Ox. Hypokalemia: Stable, continue to monitor. Will need to follow-up with PCP for continued monitoring and replacement. Tobacco abuse: Continue low-dose nicotine patch. It appears she is now refusing the patch. Counseled the patient on smoking cessation. CVA, chronic: Continue secondary stroke prevention utilizing antithrombotic, statin, blood pressure control and lifestyle modifications. Monitor for recurrent stroke or poststroke recrudescence. Monitor for poststroke depression, cognitive deficits. Follow-up with neurology at discharge. Dysarthria: Understandable however does have slowed speech and difficulty with word enunciation. Speech therapy has signed off due to patient's lack of participation. Moderate protein malnutrition: Discontinue oral supplements as patient is refusing to utilize them. Prealbumin is low at 0.112. Appetite improved with consistency change. Patient does have dentures however does not like to wear them and states that they do fit okay. Leukopenia: Stable. Attempted to consult heme-onc however was told that they no longer come to the hospital. Will need to have a outpatient consult with heme- onc at discharge Disposition: [id number] HOME UNDER HOME [facility] Time spent for discharge: >34mins Core Measure Documentation - Palliative Care Palliative Care/ Comfort Measures: Not Applicable - Core Measures Any of the following diagnoses?: stroke, history only - Stroke Discharge Requirements Statin for LDL = or >70 mg/dl on DC: Yes Anticoag for atrial fib/atrial flutter: Not Applicable Antithrombotic for ischemic stroke: Yes Exam - Physical Exam Narrative exam: MUSCULOSKELETAL SPECIALTY EXAM CONSTITUTIONAL: Well developed, poorly nourished, appropriately groomed, thin. RIGHT hand dominant. RESPIRATORY: Clear to auscultation bilaterally, no increased work of breathing CARDIOVASCULAR: Regular Rate/ Rhythm, no swelling, edema or tenderness in BUE or BLE. All extremities warm. GI: + bowel sounds, soft, NTTP, nondistended. INTEGUMENTARY: Normal, no lesion, rash, masses or bruising noted in extremities. MUSCULOSKELETAL: BUE and BLE normal without defect, crepitus, subluxation, effusion, or TTP. Mild swelling in left hand, and bilateral knees, no tenderness to palpation (patient relates this to arthritis) R 4+/5 upper extremity, 4/5 lower extremity L 4+/5 upper extremity, 4/5 lower extremity ROM within normal limits Tone within normal limits NEURO: CN II - XII grossly intact Sensation intact in all extremities without extinction. No tremor noted in 4 extremities. Aphasia not appreciated Dysarthria present but improving Dysphagia not appreciated. Neglect not appreciated POSTURE and GAIT: Sitting posture good. Balance and gait fair with slowed christiano as well as some loss of balance and use of rolling walker and CGA. PSYCH: Alert and oriented, patient at baseline as far as activity, affect appears flattened, insight appears impaired. - Constitutional Vitals: Temp Pulse Resp BP Pulse Ox 98.5 F 86 19 118/85 99 10/08/19 07:38 10/08/19 07:38 10/08/19 07:38 10/08/19 07:38 10/08/19 07:38 Plan Activity: up only with assistance, fall precautions Diet: regular (Mechanical soft with ground meats and thin liquids. Would benefit from cardiac diet however patient needs calories and do not want to discourage oral intake) Special Instructions: record daily BP diary, smoking cessation, physical therapy, occupational therapy, home health RN Additional Instructions: Patient will need to follow-up with PCP, neurologist and hematology/oncology at discharge. Health Concerns: Patient will need 24/ supervision at home. Previously she was alone during the day and we do not feel that she is safe to discharge at that level again. Blood pressure has been a little labile during this admission. Medications were adjusted for reasonable control while attempting to avoid hypotension. Patient will need to be monitored and medications adjusted once she returns home. Potassium also need to be replaced several times during her admission. She will need to be monitored for this and replaced as needed. Patient did have leukopenia. Unfortunately we do not have hematology/oncology in the hospital. Branch Library Clerk on the acute care side suggested follow-up as an outpatient and I would agree. Historically looking at the record it appears that in 2014 her WBCs were also 4.4. During this admission she has ranged between 1.5 and 2.6. Follow up with: PRIMARY MD LANA [Primary Care Provider] - 7 Days CORNELIA HOU MD [Staff Physician] - 7 Days (Leukopenia) Prescriptions: AtorvaSTATin [Lipitor] 40 mg PO QHS #30 tablet Mirtazapine [Remeron 15mg TAB] 7.5 mg PO QHS #15 tablet Aspirin EC [Ecotrin] 325 mg PO QDAY #30 tablet Nicotine [Habitrol] 7 mg TD QDAY #21 patch Magnesium Oxide [Mag-Ox] 400 mg PO QDAY #30 tablet Metoprolol Xl [Metoprolol SUCCINATE ER TAB] 100 mg PO QDAY #30 tablet Famotidine [Pepcid] 20 mg PO BID #60 tablet lisinopriL [Zestril TAB] 10 mg PO QDAY #30 tablet
[2019-10-08] MEDS: NICOTINE 7 MG/24 HR PATCH TD SCH (09:37)
[2019-10-08] MEDS: ASPIRIN EC 325 MG TAB PO SCH (09:39)
[2019-10-08] MEDS: LISINOPRIL 10 MG TAB PO SCH (09:39)
[2019-10-08] MEDS: DOCUSATE SODIUM 100 MG CAP PO SCH (09:40)
[2019-10-08] MEDS: FAMOTIDINE 20 MG TAB PO SCH (09:40)
[2019-10-08] MEDS: MULTIVITAMINS,THER W-MINERALS TAB PO SCH (09:40)
[2019-10-08] MEDS: METOPROLOL SUCCINATE XL 100 MG TAB PO SCH (09:40)
[2019-10-08] MEDS: MAGNESIUM OXIDE 400 MG TAB PO SCH (09:40)
[2019-10-08 12:45] VITALS: BP 120/88
== END 2019-10-08 15:00 | disposition home health service (06) | DRG 71 ==
LOC: UNDOADMIN 10:36 → 4A 10:36
PROVIDERS: ADMIT Physical Medicine & Rehabilitation; ATTEND Physical Medicine & Rehabilitation
DX: G93.41 Metabolic encephalopathy (principal); E44.0 Moderate protein-calorie malnutrition; Z68.1 Body mass index [BMI] 19.9 or less, adult; I10 Essential (primary) hypertension; G47.00 Insomnia, unspecified; R13.10 Dysphagia, unspecified; R47.1 Dysarthria and anarthria; E87.6 Hypokalemia; R26.2 Difficulty in walking, not elsewhere classified; M62.81 Muscle weakness (generalized); E83.42 Hypomagnesemia; E86.0 Dehydration; F17.200 Nicotine dependence, unspecified, uncomplicated; D72.819 Decreased white blood cell count, unspecified; Z82.49 Family history of ischemic heart disease and other diseases of the circulatory system; Z90.49 Acquired absence of other specified parts of digestive tract; Z71.6 Tobacco abuse counseling; Z86.73 Personal history of transient ischemic attack (TIA), and cerebral infarction without residual deficits; R53.81 Other malaise
CPT/HCPCS: 36415; 80048; 80053; 82607; 82747; 83735; 84134; 85007; 85025; 85027; 94640; G0378; A9270-GY; J0360; J1644; J3475; J3480; J7030

== ENCOUNTER 2020-01-27 09:20 | Emergency (ER) | payer MEDICARE ==
[2020-01-27 10:29] LABS: Hematocrit 31.9 % (30.3-42.9); Hemoglobin 10.9 gm/dl (10.1-14.3); Mean Corpuscular HGB Conc 34 % (30-34); Mean Corpuscular Volume 94 fl (79-97); Platelet Count 114 K/mm3 (140-440); Red Blood Count 3.38 M/mm3 (3.65-5.03); Red Cell Distribution Width 15.5 % (13.2-15.2)
[2020-01-27 10:40] LABS: Alanine Aminotransferase 11 units/L (7-56); Albumin 2.4 g/dL (3.9-5); Blood Urea Nitrogen 14 mg/dL (7-17); Calcium 8.1 mg/dL (8.4-10.2); Hemolysis Index 7
[2020-01-27 10:43] LABS: BUN/Creatinine Ratio 35
--- NOTE | 2020-01-27 11:08 | Emergency Department Report ---
HPI - General Chief Complaint: Skin/Abscess/Foreign Body Time Seen by Provider: 01/27/20 10:47 - HPI HPI: This is a 59-year-old -Thai female who presents to the emergency department via EMS from home with concern for a worsening or infection of a pressure ulcer to her back/buttock. 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 The patient does answer some questions but she is difficult to understand and overall is a poor historian. I spoke with the patient's daughter, Enriqueta, who says that the concern was that the pressure ulcer is getting larger and wanted to make sure that it was not infected. They do have some home health care that comes a few times per week that she says was "set up through you guys." I also discussed the patient's low white blood cell count and the patient's daughter says that this is chronic for her and she is "seeing a carpet installer helper for it." ED Past Medical Hx - Past Medical History Hx Hypertension: Yes Hx CVA: Yes (2004) Hx Congestive Heart Failure: No Hx Diabetes: No Hx Asthma: No Hx COPD: No Hx HIV: No Additional medical history: gallstone - Social History Smoking Status: Never Smoker - Medications Home Medications: Home Medications Medication Instructions Recorded Confirmed Last Taken Type Aspirin EC [Ecotrin] 325 mg PO QDAY #30 tablet 10/08/19 11/17/19 Unknown Rx AtorvaSTATin [Lipitor] 40 mg PO QHS #30 tablet 10/08/19 11/17/19 Unknown Rx Metoprolol Xl [Metoprolol 100 mg PO QDAY #30 tablet 10/08/19 11/17/19 Unknown Rx SUCCINATE ER TAB] lisinopriL [Zestril TAB] 10 mg PO QDAY #30 tablet 10/08/19 11/17/19 Unknown Rx Naproxen [EC-Naprosyn] 500 mg PO BID PRN #30 tablet. 11/24/19 Unknown Rx levETIRAcetam [Keppra] 500 mg PO BID #60 oral.liqd 11/24/19 Unknown Rx Sulfamethoxazole/Trimethoprim 1 each PO BID #14 tablet 01/27/20 Unknown Rx [Bactrim DS TAB] ED Review of Systems ROS: Stated complaint: LFT SIDE BEDSORE Other details as noted in HPI Comment: Unobtainable due to pts medical conditions Constitutional: denies: chills, fever Musculoskeletal: denies: back pain, arthralgia Skin: lesions (Pressure ulcer). denies: rash Physical Exam - Physical Exam Physical Exam: GENERAL: Patient is chronically ill-appearing, but otherwise does not appear in any acute distress. HENT: Normocephalic. Atraumatic. Patient has moist mucous membranes. EYES: Extraocular motions are intact. NECK: Supple. Trachea is midline. CHEST/LUNGS: Clear to auscultation. There is no respiratory distress noted. HEART/CARDIOVASCULAR: Regular. There is no tachycardia. There is no murmur. ABDOMEN: Abdomen is soft, nontender. Patient has normal bowel sounds. SKIN: Skin is warm and dry. Patient has a stage III pressure ulcer to the right sacral/superior buttock region. No surrounding erythema. No bleeding or purulent drainage seen. NEURO: The patient is awake and does respond to some questions asked but has significant aphasia. Chronic left-sided hemiplegia. MUSCULOSKELETAL: There is no tenderness or deformity. ED Course - Reevaluation(s) Reevaluation #1: 01/27/20 18:15 Lab Results 01/27/20 01/27/20 Range/Units 09:42 09:42 WBC 1.8 L* (4.5-11.0) K/mm3 RBC 3.38 L (3.65-5.03) M/mm3 Hgb 10.9 (10.1-14.3) gm/dl Hct 31.9 (30.3-42.9) % MCV 94 (79-97) fl MCH 32 (28-32) pg MCHC 34 (30-34) % RDW 15.5 H (13.2-15.2) % Plt Count 114 L (140-440) K/mm3 [place] % (Auto) Coordinator [employer] Add Manual Diff Complete Total Counted 100 Seg Neuts % (Manual) 68.0 (40.0-70.0) % Band Neutrophils % 0 % Lymphocytes % (Manual) 18.0 (13.4-35.0) % Reactive Lymphs % (Man) 0 % Monocytes % (Manual) 13.0 H (0.0-7.3) % Eosinophils % (Manual) 0 (0.0-4.3) % Basophils % (Manual) 1.0 (0.0-1.8) % Metamyelocytes % 0 % Myelocytes % 0 % Promyelocytes % 0 % Blast Cells % 0 % Nucleated RBC % Not Reportable Seg Neutrophils # Man 1.2 L (1.8-7.7) K/mm3 Band Neutrophils # 0.0 K/mm3 Lymphocytes # (Manual) 0.3 L (1.2-5.4) K/mm3 Abs React Lymphs (Man) 0.0 K/mm3 Monocytes # (Manual) 0.2 (0.0-0.8) K/mm3 Eosinophils # (Manual) 0.0 (0.0-0.4) K/mm3 Basophils # (Manual) 0.0 (0.0-0.1) K/mm3 Metamyelocytes # 0.0 K/mm3 Myelocytes # 0.0 K/mm3 Promyelocytes # 0.0 K/mm3 Blast Cells # 0.0 K/mm3 WBC Morphology Not Reportable Hypersegmented Neuts Not Reportable Hyposegmented Neuts Not Reportable Hypogranular Neuts Not Reportable Smudge Cells Not Reportable Toxic Granulation Not Reportable Toxic Vacuolation Not Reportable Dohle Bodies Not Reportable Pelger-Huet Anomaly Not Reportable Dirk Rods Not Reportable Platelet Estimate Consistent w auto Clumped Platelets Not Reportable Plt Clumps, EDTA Not Reportable Large Platelets Not Reportable Giant Platelets Not Reportable Platelet Satelliting Not Reportable Plt Morphology Comment Not Reportable RBC Morphology Not Reportable Dimorphic RBCs Not Reportable Polychromasia Not Reportable Hypochromasia Not Reportable Poikilocytosis 1+ Anisocytosis Few Microcytosis Not Reportable Macrocytosis Not Reportable Spherocytes Not Reportable Pappenheimer Bodies Not Reportable Sickle Cells Not Reportable Target Cells Not Reportable Tear Drop Cells Not Reportable Ovalocytes Not Reportable Helmet Cells Not Reportable Jensen-Cesar Chavez Bodies Not Reportable [place] Rings Not Reportable Jaci Cells Not Reportable Bite Cells Not Reportable Crenated Cell Not Reportable Elliptocytes Not Reportable Acanthocytes (Spur) Not Reportable Rouleaux Not Reportable Hemoglobin C Crystals Not Reportable Schistocytes Not Reportable Malaria parasites Not Reportable Beni Bodies Not Reportable Hem Pathologist Commnt No Sodium 141 (137-145) mmol/L Potassium 3.6 (3.6-5.0) mmol/L Chloride 105.5 (98-107) mmol/L Carbon Dioxide 24 (22-30) mmol/L Anion Gap 15 mmol/L BUN 14 (7-17) mg/dL Creatinine 0.4 L (0.6-1.2) mg/dL Estimated GFR > 60 ml/min BUN/Creatinine Ratio 35 % Glucose 82 (65-100) mg/dL Calcium 8.1 L (8.4-10.2) mg/dL Total Bilirubin 0.20 (0.1-1.2) mg/dL AST 17 (5-40) units/L ALT 11 (7-56) units/L Alkaline Phosphatase 109 (35-129) units/L Total Protein 6.5 (6.3-8.2) g/dL Albumin 2.4 L (3.9-5) g/dL Albumin/Globulin Ratio 0.6 % ED Medical Decision Making - Lab Data Result diagrams: 01/27/20 09:42 01/27/20 09:42 - Medical Decision Making This patient was sent in for evaluation of her pressure ulcer. It is not new but the family was concerned that it is worsening. Patient does have a quarter sized pressure ulcer to the superior right buttock/sacrum. No surrounding erythema, current bleeding or current purulent drainage. Patient's vital signs have been reassuring including being afebrile. CBC shows leukopenia and some thrombocytopenia that is consistent with previous visits. Family is aware of this and she is following with a carpet installer helper. The rest of the labs are mostly unremarkable. She will be placed on some antibiotics. They already have home health care. And they have been given outpatient referral for the wound care clinic. They have been instructed to return to the emergency department with any worsening of her symptoms or with any acute distress. Critical Care Time: No Critical care attestation.: If time is entered above; I have spent that time in minutes in the direct care of this critically ill patient, excluding procedure time. ED Disposition Clinical Impression: Sacral pressure ulcer Qualifiers: Pressure injury stage: stage 3 Qualified Code(s): L89.153 - Pressure ulcer of sacral region, stage 3 Hypertension Qualifiers: Hypertension type: essential hypertension Qualified Code(s): I10 - Essential (primary) hypertension Leukopenia Qualifiers: Leukopenia type: unspecified Qualified Code(s): D72.819 - Decreased white blood cell count, unspecified Disposition: DC-01 TO HOME OR SELFCARE Is pt being admited?: No Condition: Stable Instructions: How to Prevent Pressure Ulcers (ED), Pressure Ulcer (ED), Hypertension (ED) Additional Instructions: Please follow-up with your primary care physician and carpet installer helper in the next few days. I have also given you a referral for the wound care clinic. Take the medications as prescribed. Return to the emergency department with any worsening of your symptoms or with any acute distress. Prescriptions: Sulfamethoxazole/Trimethoprim [Bactrim DS TAB] 1 each PO BID #14 tablet Referrals: PRIMARY CARE, [Primary Care Provider] - 2-3 Days [facility] [Other] - 2-3 Days [facility] [Outside] - 2-3 Days Time of Disposition: 12:02
[2020-01-27 11:22] LABS: Eosinophils % (Manual) 0 % (0.0-4.3); Total Cells Counted 100
[2020-01-27 11:23] LABS: Anisocytosis Few; Platelet Estimate Consistent w Auto; Poikilocytosis 1+
[2020-01-27] MEDS ORDERED: SULFAMETHOXAZOLE/TRIMETHOPRIM 800/160MG DS TAB PO ONE (11:34)
[2020-01-27 13:36] VITALS: BP 153/78
== END 2020-01-27 13:36 | disposition home or self-care (01) ==
LOC: ED 09:20
DX: L89.159 Pressure ulcer of sacral region, unspecified stage (principal); I10 Essential (primary) hypertension; D72.819 Decreased white blood cell count, unspecified; Z86.73 Personal history of transient ischemic attack (TIA), and cerebral infarction without residual deficits; Z79.899 Other long term (current) drug therapy
CPT/HCPCS: 36415; 80053; 85007; 85025

== ENCOUNTER 2020-02-07 08:06 | Outpatient (CLI) | payer MEDICARE ==
[2020-02-07] MEDS ORDERED: LIDOCAINE (4%) 40 MG/ML TOPICAL SOLN 50 ML BOTTLE TP NR (08:23)
== END 2020-02-07 08:07 | disposition home or self-care (01) ==
LOC: WOUND 08:06
PROVIDERS: ATTEND Surgery
DX: L89.153 Pressure ulcer of sacral region, stage 3 (principal); I11.0 Hypertensive heart disease with heart failure; I50.9 Heart failure, unspecified; E78.5 Hyperlipidemia, unspecified; Z86.73 Personal history of transient ischemic attack (TIA), and cerebral infarction without residual deficits; Z87.891 Personal history of nicotine dependence; Z79.82 Long term (current) use of aspirin
CPT/HCPCS: 11042; G0463; 99204; 99214

== ENCOUNTER 2020-02-14 08:34 | Outpatient (CLI) | payer MEDICARE ==
[2020-02-14] MEDS ORDERED: LIDOCAINE (4%) 40 MG/ML TOPICAL SOLN 50 ML BOTTLE TP ONE (08:51)
== END 2020-02-14 08:35 | disposition home or self-care (01) ==
LOC: WOUND 08:34
PROVIDERS: ATTEND Surgery
DX: L89.153 Pressure ulcer of sacral region, stage 3 (principal); I11.0 Hypertensive heart disease with heart failure; I50.9 Heart failure, unspecified; E78.5 Hyperlipidemia, unspecified; Z86.73 Personal history of transient ischemic attack (TIA), and cerebral infarction without residual deficits; Z87.891 Personal history of nicotine dependence; Z79.82 Long term (current) use of aspirin; Z99.3 Dependence on wheelchair

== ENCOUNTER 2020-02-21 09:53 | Outpatient (CLI) | payer MEDICARE ==
[2020-02-21] MEDS ORDERED: LIDOCAINE (4%) 40 MG/ML TOPICAL SOLN 50 ML BOTTLE TP NR (10:05)
== END 2020-02-21 09:54 | disposition home or self-care (01) ==
LOC: WOUND 09:53
PROVIDERS: ATTEND Surgery
DX: L89.153 Pressure ulcer of sacral region, stage 3 (principal); I11.0 Hypertensive heart disease with heart failure; I50.9 Heart failure, unspecified; E78.5 Hyperlipidemia, unspecified; Z86.73 Personal history of transient ischemic attack (TIA), and cerebral infarction without residual deficits; Z87.891 Personal history of nicotine dependence; Z79.82 Long term (current) use of aspirin; Z99.3 Dependence on wheelchair

== ENCOUNTER 2020-02-28 09:21 | Outpatient (CLI) | payer MEDICARE ==
[2020-02-28] MEDS ORDERED: LIDOCAINE (4%) 40 MG/ML TOPICAL SOLN 50 ML BOTTLE TP SCH (10:00)
== END 2020-02-28 09:22 | disposition home or self-care (01) ==
LOC: WOUND 09:21
PROVIDERS: ATTEND Surgery
DX: L89.153 Pressure ulcer of sacral region, stage 3 (principal); I11.0 Hypertensive heart disease with heart failure; I50.9 Heart failure, unspecified; E78.5 Hyperlipidemia, unspecified; Z86.73 Personal history of transient ischemic attack (TIA), and cerebral infarction without residual deficits; Z87.891 Personal history of nicotine dependence; Z79.82 Long term (current) use of aspirin

== ENCOUNTER 2020-03-06 09:00 | Outpatient (CLI) | payer MEDICARE ==
[2020-03-06] MEDS ORDERED: LIDOCAINE (4%) 40 MG/ML TOPICAL SOLN 50 ML BOTTLE TP SCH (09:03)
== END 2020-03-06 09:01 | disposition home or self-care (01) ==
LOC: WOUND 09:00
PROVIDERS: ATTEND Surgery
DX: L89.153 Pressure ulcer of sacral region, stage 3 (principal); I11.0 Hypertensive heart disease with heart failure; I50.9 Heart failure, unspecified; E78.5 Hyperlipidemia, unspecified; Z86.73 Personal history of transient ischemic attack (TIA), and cerebral infarction without residual deficits; Z87.891 Personal history of nicotine dependence; Z79.82 Long term (current) use of aspirin

== ENCOUNTER 2020-03-08 15:07 | Inpatient (IN) | payer MEDICARE ==
[2020-03-08 16:24] LABS: Basophils % (Auto) 0.2 % (0.0-1.8); Eosinophils % (Auto) 0.1 % (0.0-4.3); Hematocrit 47.3 % (30.3-42.9); Hemoglobin 15.6 gm/dl (10.1-14.3); Lymphocytes # (Auto) 0.3 K/mm3 (1.2-5.4); Lymphocytes % (Auto) 10.5 % (13.4-35.0); Mean Corpuscular HGB Conc 33 % (30-34); Mean Corpuscular Volume 96 fl (79-97); Monocytes # (Auto) 0.2 K/mm3 (0.0-0.8); Monocytes % (Auto) 6.3 % (0.0-7.3); Platelet Count 108 K/mm3 (140-440); Red Blood Count 4.91 M/mm3 (3.65-5.03); Red Cell Distribution Width 15.5 % (13.2-15.2)
[2020-03-08] MEDS ORDERED: ONDANSETRON 4 MG ODT TAB PO ONE (16:44)
--- NOTE | 2020-03-08 16:45 | Emergency Department Report ---
ED General Adult HPI - General Chief complaint: Nausea/Vomiting/Diarrhea Stated complaint: VOMITING X3 DAYS PUI?: No Time Seen by Provider: 03/08/20 16:07 Source: patient, family, EMS ( EMS documentation not available at time of chart dictation ), RN notes reviewed, old records reviewed Mode of arrival: Stretcher Limitations: Physical Limitation - History of Present Illness Initial comments: The patient was evaluated in the emergency department for symptoms described in the history of present illness. He/she was evaluated in the context of the global COVID-19 pandemic, which necessitated consideration that the patient mi ght be at risk for infection with the virus that causes COVID-19. Institutional protocols and algorithms that pertain to the evaluation of patients at risk for COVID-19 are in a state of rapid change based on information released by regulatory bodies including the CDC and federal and state organizations. These policies and algorithms were followed during the patient's care in the emergency department. Please note that these policies, procedures and recommendations changed on a rapid basis. Patient is a 59-year-old female. She has a history of dysphagia, stroke, right- sided deficits, distant history of cholecystectomy. She is brought to the hospital with her , with a complaint of intermittent nausea and vomiting over the past 2 weeks. Patient denies physical pain. Patient denies headache, neck pain, chest pain, abdominal pain, shortness of breath. History mostly obtained from her . He reports the patient is having difficulty swallowing. He reports the patient intermittently throws up. He reports the patient is having normal bowel movements. He has no concerns about urination. The patient has a chronic wound at home. Patient receiving home wound nursing care. As per collateral information obtained from family, patient able to tolerate medications orally this morning and yesterday. There is reportedly no history of hematemesis and bright red blood per rectum. -: week(s) Severity scale (0 -10): 0 Consistency: intermittent Improves with: none Worsens with: none - Related Data Previous Rx's Medication Instructions Recorded Last Taken Type Aspirin EC [Ecotrin] 325 mg PO QDAY #30 tablet 10/08/19 Unknown Rx AtorvaSTATin [Lipitor] 40 mg PO QHS #30 tablet 10/08/19 Unknown Rx levETIRAcetam [Keppra] 500 mg PO BID #60 oral.liqd 11/24/19 Unknown Rx Acetaminophen [Acetaminophen TAB] 650 mg PO Q4H PRN tablet 02/19/20 Unknown Rx Aspirin 325 mg PO QDAY tablet 02/19/20 Unknown Rx AtorvaSTATin [Lipitor] 40 mg PO QHS tablet 02/19/20 Unknown Rx Metoprolol Xl [Metoprolol 100 mg PO QDAY #30 tablet 02/19/20 Unknown Rx SUCCINATE ER TAB] amLODIPine 10 mg PO DAILY #30 tablet 02/19/20 Unknown Rx bisacodyL [Dulcolax suppos] 10 mg NV QDAY PRN supp.rect 02/19/20 Unknown Rx levETIRAcetam [Keppra TAB] 500 mg PO BID tablet 02/19/20 Unknown Rx lisinopriL [Zestril TAB] 40 mg PO QDAY #30 tablet 02/19/20 Unknown Rx Allergies Allergy/AdvReac Type Severity Reaction Status Date / Time No Known Allergies Allergy Verified 03/08/20 15:23 ED Review of Systems ROS: Stated complaint: VOMITING X3 DAYS Other details as noted in HPI Constitutional: denies: fever Eyes: denies: eye discharge ENT: denies: epistaxis Respiratory: denies: cough Cardiovascular: denies: chest pain Gastrointestinal: nausea, vomiting. denies: abdominal pain Genitourinary: denies: dysuria Hematological/Lymphatic: denies: easy bleeding ED Past Medical Hx - Past Medical History Hx Hypertension: Yes Hx CVA: Yes (2004) Hx Congestive Heart Failure: No Hx Diabetes: No Hx Seizures: Yes Hx Asthma: No Hx COPD: No Hx HIV: No Additional medical history: gallstone - Social History Smoking Status: Never Smoker - Medications Home Medications: Home Medications Medication Instructions Recorded Confirmed Last Taken Type Aspirin EC [Ecotrin] 325 mg PO QDAY #30 tablet 10/08/19 03/08/20 Unknown Rx AtorvaSTATin [Lipitor] 40 mg PO QHS #30 tablet 10/08/19 03/08/20 Unknown Rx levETIRAcetam [Keppra] 500 mg PO BID #60 oral.liqd 11/24/19 03/08/20 Unknown Rx Acetaminophen [Acetaminophen TAB] 650 mg PO Q4H PRN tablet 02/19/20 03/08/20 Unknown Rx Aspirin 325 mg PO QDAY tablet 02/19/20 03/08/20 Unknown Rx AtorvaSTATin [Lipitor] 40 mg PO QHS tablet 02/19/20 03/08/20 Unknown Rx Metoprolol Xl [Metoprolol 100 mg PO QDAY #30 tablet 02/19/20 03/08/20 Unknown Rx SUCCINATE ER TAB] amLODIPine 10 mg PO DAILY #30 tablet 02/19/20 03/08/20 Unknown Rx bisacodyL [Dulcolax suppos] 10 mg NV QDAY PRN supp.rect 02/19/20 03/08/20 Unknown Rx levETIRAcetam [Keppra TAB] 500 mg PO BID tablet 02/19/20 03/08/20 Unknown Rx lisinopriL [Zestril TAB] 40 mg PO QDAY #30 tablet 02/19/20 03/08/20 Unknown Rx ED Physical Exam - General Limitations: Physical Limitation General appearance: alert, in no apparent distress - Head Head exam: Present: atraumatic, normocephalic - Eye Eye exam: Present: normal appearance, EOMI. Absent: nystagmus - ENT ENT exam: Present: normal exam, normal orophraynx, mucous membranes moist, normal external ear exam - Neck Neck exam: Present: normal inspection, full ROM. Absent: tenderness, meningismus - Respiratory Respiratory exam: Present: normal lung sounds bilaterally. Absent: respiratory distress, wheezes, rales, rhonchi, stridor, decreased breath sounds - Cardiovascular Cardiovascular Exam: Present: regular rate, normal rhythm, normal heart sounds. Absent: bradycardia, tachycardia, irregular rhythm, systolic murmur, diastolic murmur, rubs, gallop - GI/Abdominal GI/Abdominal exam: Present: soft. Absent: distended, tenderness, guarding, rebound, rigid, pulsatile mass - Rectal Rectal exam: Absent: normal inspection (Chronic appearing wound is noted) - Extremities Exam Extremities exam: Present: normal inspection, full ROM, other (2+ pulses noted in the bilateral upper and lower extremities. There is no palpable cord. negative Homans sign. Muscular compartments are soft. The pelvis is stable.). Absent: pedal edema, calf tenderness - Back Exam Back exam: Present: normal inspection, full ROM. Absent: tenderness, CVA tenderness (R), CVA tenderness (L), paraspinal tenderness, vertebral tenderness - Neurological Exam Neurological exam: Present: alert, other (There is a chronic right-sided weakness. There is a chronic right-sided facial droop. Sensation is intact to light touch in 4 extremities) - Skin Skin exam: Present: warm, dry, intact, normal color. Absent: rash ED Course Vital Signs 03/08/20 03/08/20 03/08/20 15:27 16:16 18:16 Temperature 97.5 F L Pulse Rate 83 76 95 H Respiratory 16 12 13 Rate Blood Pressure 182/103 Blood Pressure 150/90 [Left] Blood Pressure 178/104 157/103 [Right] O2 Sat by Pulse 98 96 98 Oximetry 03/08/20 20:59 Temperature Pulse Rate 74 Respiratory 16 Rate Blood Pressure Blood Pressure [Left] Blood Pressure 163/93 [Right] O2 Sat by Pulse 96 Oximetry ED Medical Decision Making - Lab Data Result diagrams: 03/08/20 16:10 03/08/20 16:10 Vital Signs 03/08/20 03/08/20 03/08/20 15:27 16:16 18:16 Temperature 97.5 F L Pulse Rate 83 76 95 H Respiratory 16 12 13 Rate Blood Pressure 182/103 Blood Pressure 150/90 [Left] Blood Pressure 178/104 157/103 [Right] O2 Sat by Pulse 98 96 98 Oximetry Lab Results 03/08/20 03/08/20 03/08/20 Range/Units 16:10 16:10 16:44 WBC 2.7 L (4.5-11.0) K/mm3 RBC 4.91 (3.65-5.03) M/mm3 Hgb 15.6 H (10.1-14.3) gm/dl Hct 47.3 H (30.3-42.9) % MCV 96 (79-97) fl MCH 32 (28-32) pg MCHC 33 (30-34) % RDW 15.5 H (13.2-15.2) % Plt Count 108 L (140-440) K/mm3 Lymph % (Auto) 10.5 L (13.4-35.0) % [place] % (Auto) 6.3 (0.0-7.3) % Eos % (Auto) 0.1 (0.0-4.3) % Baso % (Auto) 0.2 (0.0-1.8) % Lymph # (Auto) 0.3 L (1.2-5.4) K/mm3 [place] # (Auto) 0.2 (0.0-0.8) K/mm3 Eos # (Auto) 0.0 (0.0-0.4) K/mm3 Baso # (Auto) 0.0 (0.0-0.1) K/mm3 Seg Neutrophils % 82.9 H (40.0-70.0) % Seg Neutrophils # 2.2 (1.8-7.7) K/mm3 Sodium 147 H (137-145) mmol/L Potassium 3.6 (3.6-5.0) mmol/L Chloride 99.1 (98-107) mmol/L Carbon Dioxide 32 H (22-30) mmol/L Anion Gap 20 mmol/L BUN 15 (7-17) mg/dL Creatinine 0.6 (0.6-1.2) mg/dL Estimated GFR > 60 ml/min BUN/Creatinine Ratio 25 % Glucose 89 (65-100) mg/dL Calcium 9.0 (8.4-10.2) mg/dL Magnesium 2.00 (1.7-2.3) mg/dL Total Bilirubin 0.40 (0.1-1.2) mg/dL AST 18 (5-40) units/L ALT 9 (7-56) units/L Alkaline Phosphatase 96 (35-129) units/L Total Creatine Kinase 27 L (30-135) units/L Total Protein 8.1 (6.3-8.2) g/dL Albumin 3.3 L (3.9-5) g/dL Albumin/Globulin Ratio 0.7 % Vital Signs 03/08/20 03/08/20 03/08/20 15:27 16:16 18:16 Temperature 97.5 F L Pulse Rate 83 76 95 H Respiratory 16 12 13 Rate Blood Pressure 182/103 Blood Pressure 150/90 [Left] Blood Pressure 178/104 157/103 [Right] O2 Sat by Pulse 98 96 98 Oximetry - EKG Data -: EKG Interpreted by Ak EKG shows normal: sinus rhythm Rate: normal - EKG Data 03/08/20 19:51 Sinus rhythm, 88 bpm, left axis deviation, left anterior fascicular block, QTC 444 ms, poor R wave progression, not a STEMI. - Radiology Data Radiology results: report reviewed, image reviewed Print Report Referring Physician: JAMES DAUGHERTY Patient Name: JULIETH JOHNSON Date of : 1960 Sex: Female Report Date: 2020-03-08 Report Status: Finalized Findings [facility] [address] [place] [address] Cat Scan Report Signed Patient: JULIETH JOHNSON MR#: [id number] : 1960 Acct:[id number] Age/Sex: 59 / F ADM Date: 03/08/20 Loc: ED Attending Dr: Ordering Physician: JAMES DAUGHERTY MD Date of Service: 03/08/20 Procedure(s): CT abdomen pelvis wo con Accession Number(s): [id number] cc: JAMES DAUGHERTY MD CT ABDOMEN AND PELVIS WITHOUT CONTRAST INDICATION / CLINICAL INFORMATION: n/v weak. TECHNIQUE: Axial CT images were obtained through the abdomen and pelvis without IV contrast. All CT scans at this location are performed using CT dose reduction for ALARA by means of automated exposure control. COMPARISON: None available. FINDINGS: LOWER CHEST: Mild bibasilar emphysema. Mild left basilar atelectasis. Small-moderate pericardial effusion. HEPATOBILIARY: No focal hepatic abnormality. Small amount of pneumobilia. PANCREAS: Calcifications in the region of the pancreas possibly representing chronic pancreatitis. SPLEEN: No significant abnormality. ADRENALS: No significant abnormality. GENITOURINARY: No significant abnormality. GASTROINTESTINAL/MESENTERY: Air present throughout the ascending colon wall to the level of the proximal-mid transverse colon. Small amount of pneumatosis is also likely present in the cecum. There is scattered focal free air at the jere hepatis, posterior to the liver and in the lesser sac. The stomach is significantly distended as well as the first and second portions of the duodenum. The remaining bowel is decompressed. RETROPERITONEUM: No significant adenopathy. REPRODUCTIVE ORGANS: No significant abnormality. VASCULAR: Severe atherosclerotic calcification without acute abno rmality. No definite portal venous gas. SKELETAL SYSTEM: No significant abnormality. ADDITIONAL FINDINGS: No significant abnormality. IMPRESSION: 1. Pneumatosis intestinalis involving the ascending colon, proximal transverse colon, and likely the cecum. Associated bowel perforation with the majority of air in the upper abdomen suggesting perforation in the region of the hepatic flexure. Consider surgical consultation for further evaluation. 2. Additional findings as above. CRITICAL RESULT: Time of Discovery (ELECTRICAL AND RADIO MOCK UP MECHANIC/CDT): 1654 Time of Communication (ELECTRICAL AND RADIO MOCK UP MECHANIC/CDT): 170 Licensed Practitioner Receiving Report: Francisca JACKSON for James Daugherty MD Read- Back Performed: Yes. Signer Name: Jose J Grace MD Signed: 03/08/2020 6:11 PM Workstation Name: [id number] Transcribed By: Dictated By: JOSE J GRACE III Electronically Authenticated By: JOSE J GRACE III Signed Date/Time: 03/08/201810 DD/ 51 TD/TT: Print Report Referring Physician: JAMES DAUGHERTY Patient Name: JULIETH JOHNSON Date of : 1960 Sex: Female Report Date: 2020-03-08 Report Status: Finalized Findings [facility] [address] [place] [address] XRay Report Signed Patient: JULIETH JOHNSON MR#: [id number] : 1960 Acct:[id number] Age/Sex: 59 / F ADM Date: 03/08/20 Loc: ED Attending Dr: Ordering Physician: JAMES DAUGHERTY MD Date of Service: 03/08/20 Procedure(s): XR chest 1V ap Accession Number(s): [id number] cc: JAMES DAUGHERTY MD Fluoro Time In Minutes: CHEST 1 VIEW INDICATION: n/v weak COMPARISON: 02/17/2020 FINDINGS: Support devices: None Heart: Stable. Lungs/Pleura: No acute pulmonary or pleural findings. IMPRESSION: 1. No acute disease and no interval change. Signer Name: Gerson Paul MD Signed: 03/08/2020 4:56 PM Workstation Name: [id number] Transcribed By: TM Dictated By: Gerson Paul MD Electronically Authenticated By: Gerson Paul MD Signed Date/Time: 03/08/201655 DD/DT: 1654 TD/TT: - Medical Decision Making Differential diagnosis, including but not limited to: Pneumonia, urinary tract infection, dysphagia, intra-abdominal infection/obstruction Assessment and plan: 59-year-old female with 2 weeks of intermittent nausea and vomiting. Family offers collateral history that patient able to tolerate oral feeds this morning, and yesterday. Patient herself denies physical pain. Patient unfortunately failed a swallow screen in the emergency room. Basic laboratory studies, x-ray the chest, urinalysis, CT scan of the abdomen pelvis are ordered and obtained. Urinalysis is pending at this time CT scan abdomen pelvis suggested free air, and pneumatosis intestinalis. Suspect that this may be a chronic finding, as the patient is afebrile, with reassuring vital signs, with no abdominal tenderness, rebound or guarding. Apparently, patient has a distant history of cholecystectomy with "large stones", as per her . Suspect that the patient may have history of cholecysto enteric fistula, thus leading to chronic pneumatosis. This was specifically recommended by my general surgeon on-call, Dr Edwin Goins He has also come into the ER to specifically evaluate the patient. Patient admitted to the medical service under the care of Dr. Seaman. Critical care attestation.: If time is entered above; I have spent that time in minutes in the direct care of this critically ill patient, excluding procedure time. ED Disposition Clinical Impression: Pneumatosis intestinalis, Dysphagia, Pneumoperitoneum, Pneumobilia Disposition: OP ADMIT IP TO THIS HOSP Is pt being admited?: Yes Does the pt Need Aspirin: No Condition: Good
[2020-03-08 16:46] LABS: Alanine Aminotransferase 9 units/L (7-56); Albumin 3.3 g/dL (3.9-5); Blood Urea Nitrogen 15 mg/dL (7-17); Hemolysis Index 16
[2020-03-08 16:49] LABS: BUN/Creatinine Ratio 25
[2020-03-08] MEDS ORDERED: ONDANSETRON 4 MG/2 ML INJ ONE (16:58)
--- NOTE | 2020-03-08 17:00 | XRay Report ---
CHEST 1 VIEW INDICATION: n/v weak COMPARISON: 02/17/2020 FINDINGS: Support devices: None Heart: Stable. Lungs/Pleura: No acute pulmonary or pleural findings. IMPRESSION: 1. No acute disease and no interval change. Signer Name: Gerson Paul MD Signed: 03/08/2020 4:56 PM Workstation Name: [id number]
[2020-03-08] MEDS ORDERED: ONDANSETRON 4 MG/2 ML INJ IV ONE (18:15)
--- NOTE | 2020-03-08 18:16 | Cat Scan Report ---
CT ABDOMEN AND PELVIS WITHOUT CONTRAST INDICATION / CLINICAL INFORMATION: n/v weak. TECHNIQUE: Axial CT images were obtained through the abdomen and pelvis without IV contrast. All CT scans at [facility] are performed using CT dose reduction for ALARA by means of automated exposure control. COMPARISON: None available. FINDINGS: LOWER CHEST: Mild bibasilar emphysema. Mild left basilar atelectasis. Small-moderate pericardial effu ayala. HEPATOBILIARY: No focal hepatic abnormality. Small amount of pneumobilia. PANCREAS: Calcifications in the region of the pancreas possibly representing chronic pancreatitis. SPLEEN: No significant abnormality. ADRENALS: No significant abnormality. GENITOURINARY: No significant abnormality. GASTROINTESTINAL/MESENTERY: Air present throughout the ascending colon wall to the level of the proxi mal-mid transverse colon. Small amount of pneumatosis is also likely present in the cecum. There is s cattered focal free air at the jere hepatis, posterior to the liver and in the lesser sac. The stoma ch is significantly distended as well as the first and second portions of the duodenum. The remaining bowel is decompressed. RETROPERITONEUM: No significant adenopathy. REPRODUCTIVE ORGANS: No significant abnormality. VASCULAR: Severe atherosclerotic calcification without acute abnormality. No definite portal venous g as. SKELETAL SYSTEM: No significant abnormality. ADDITIONAL FINDINGS: No significant abnormality. IMPRESSION: 1. Pneumatosis intestinalis involving the ascending colon, proximal transverse colon, and likely the cecum. Associated bowel perforation with the majority of air in the upper abdomen suggesting perforat ion in the region of the hepatic flexure. Consider surgical consultation for further evaluation. 2. Additional findings as above. CRITICAL RESULT: Time of Discovery (HEALTH COACH/CDT): 1655 Time of Communication (HEALTH COACH/CDT): 1705 Licensed Practitioner Receiving Report: Francisca JACKSON for James Daugherty MD Read-Back Performed: Yes. Signer Name: Denzel Grace MD Signed: 03/08/2020 6:11 PM Workstation Name: [id number]
[2020-03-08] MEDS ORDERED: PIPERACIL/TAZOBACTA 4.5/NS 100 4.5 GM/100 ML VIAL IV ONE (18:18)
[2020-03-08] MEDS ORDERED: SODIUM CHLORIDE 0.9% 1000 ML 1,000 ML IV ONE (18:18)
[2020-03-08] MEDS ORDERED: metroNIDAZOLE/NS 500 MG/100 ML 500 MG/100 ML BAG IV ONE (18:18)
--- NOTE | 2020-03-08 18:54 | History and Physical Report ---
History of Present Illness Chief complaint: She was sick History of present illness: 59 YO Female with CVA complicated by Debility, Expressive Aphasia, HTN, Seizure Disorder, HLD, Sacral Decubitus Ulcer presents to ED for evaluation. Patient is unable to provide history. Patient is at bedside and provides history. Patient is bedbound, nonambulatory and has a palliative performance score of 30%. Patient requires 6/6 assistance with activities of daily living. As per the patient has experienced multiple episodes of vomiting over the past 3 days. Patient was seen and evaluated by home health nurse and found to be in distress. EMS was notified and upon arrival the patient was found to be in distress and subsequently transported to [facility] for further care and evaluation of the aforementioned symptoms. Patient seen and evaluated in the emergency department. Lab and imaging studies reviewed. CT scan of the abdomen and pelvis revealed perforated viscus. Surgical team consulted in the emergency department for further care and evaluation. No reports of fever, chills, chest pain, palpitations, productive cough, skin rash, recent ill contacts, or known exposure to COVID-19. Prior admission on 02/18/2020 reviewed. All medication listed at time of admission has been reconciled. Advanced care planning conducted in the emergency department. Past History Past Medical History: hyperlipidemia, seizures, stroke, other (See HPI) Past Surgical History: No surgical history, Other (Reviewed) Social history: , lives with family. denies: smoking, alcohol abuse, prescription drug abuse Family history: hypertension Medications and Allergies Allergies Allergy/AdvReac Type Severity Reaction Status Date / Time No Known Allergies Allergy Verified 03/08/20 15:23 Home Medications Medication Instructions Recorded Confirmed Last Taken Type Aspirin EC [Ecotrin] 325 mg PO QDAY #30 tablet 10/08/19 02/17/20 Unknown Rx AtorvaSTATin [Lipitor] 40 mg PO QHS #30 tablet 10/08/19 02/17/20 Unknown Rx levETIRAcetam [Keppra] 500 mg PO BID #60 oral.liqd 11/24/19 02/17/20 Unknown Rx Acetaminophen [Acetaminophen TAB] 650 mg PO Q4H PRN tablet 02/19/20 Unknown Rx Aspirin 325 mg PO QDAY tablet 02/19/20 Unknown Rx AtorvaSTATin [Lipitor] 40 mg PO QHS tablet 02/19/20 Unknown Rx Metoprolol Xl [Metoprolol 100 mg PO QDAY #30 tablet 02/19/20 Unknown Rx SUCCINATE ER TAB] amLODIPine 10 mg PO DAILY #30 tablet 02/19/20 Unknown Rx bisacodyL [Dulcolax suppos] 10 mg TN QDAY PRN supp.rect 02/19/20 Unknown Rx levETIRAcetam [Keppra TAB] 500 mg PO BID tablet 02/19/20 Unknown Rx lisinopriL [Zestril TAB] 40 mg PO QDAY #30 tablet 02/19/20 Unknown Rx Active Meds: Active Medications Sodium Chloride (Nacl 0.9% 1000 Ml) 1,000 mls @ 999 mls/hr IV BOLUS ONE Stop: 03/08/20 19:18 Review of Systems ROS unobtainable: due to mental status Exam - Constitutional Vitals: Temp Pulse Resp BP Pulse Ox 98.6 F 95 H 13 157/103 98 03/08/20 15:27 03/08/20 18:16 03/08/20 18:16 03/08/20 18:16 03/08/20 18:16 General appearance: Present: mild distress, cachectic - EENT Eyes: Present: PERRL ENT: clear oral mucosa, hearing decreased - Neck Neck: Present: supple, normal ROM - Respiratory Respiratory effort: normal Respiratory: bilateral: CTA - Cardiovascular Heart Sounds: Present: S1 & S2. Absent: rub, click - Extremities Extremities: pulses symmetrical, No edema Peripheral Pulses: within normal limits - Abdominal General gastrointestinal: Present: soft, non-distended, normal bowel sounds Female genitourinary: Present: normal - Integumentary Integumentary: Present: clear, dry - Musculoskeletal Musculoskeletal: generalized weakness - Psychiatric Psychiatric: no appropriate mood/affect, no intact judgment & insight, no memory intact - Neurologic Neurologic: focal deficits, no gait normal Results - Labs CBC & Chem 7: 03/08/20 16:10 03/08/20 16:10 Labs: Abnormal lab results 03/08/20 03/08/20 03/08/20 Range/Units 16:10 16:10 16:44 WBC 2.7 L (4.5-11.0) K/mm3 Hgb 15.6 H (10.1-14.3) gm/dl Hct 47.3 H (30.3-42.9) % RDW 15.5 H (13.2-15.2) % Plt Count 108 L (140-440) K/mm3 Lymph % (Auto) 10.5 L (13.4-35.0) % Lymph # (Auto) 0.3 L (1.2-5.4) K/mm3 Seg Neutrophils % 82.9 H (40.0-70.0) % Sodium 147 H (137-145) mmol/L Carbon Dioxide 32 H (22-30) mmol/L Total Creatine Kinase 27 L (30-135) units/L Albumin 3.3 L (3.9-5) g/dL Assessment and Plan - Patient Problems (1) Bowel perforation Current Visit: Yes Status: Acute Plan to address problem: CT scan abdomen pelvis, CBC, CMP, n.p.o., bowel rest, surgical consult placed in the emergency department. Patient is pending surgical intervention as per surgical team. (2) Seizure disorder Current Visit: No Status: Acute Plan to address problem: Supportive care, neuro check, seizure precautions, continue medical management with Keppra 500 mg p.o. twice daily. If patient is unable to tolerate p.o patient will be treated with Keppra 500 mg IV twice daily.. (3) HLD (hyperlipidemia) Current Visit: No Status: Chronic Qualifiers: Hyperlipidemia type: mixed hyperlipidemia Qualified Code(s): E78.2 - Mixed hyperlipidemia Plan to address problem: Statin therapy, supportive care. (4) Malignant hypertension Current Visit: No Status: Chronic Plan to address problem: Monitor blood pressure every shift, continue medical management, IV hydralazine every 6 hours as needed for systolic blood pressure greater than 155 (5) Protein-calorie malnutrition, severe Current Visit: No Status: Chronic Plan to address problem: Supportive care, increase protein intake, dietary supplementation as tolerated postoperatively. (6) DVT prophylaxis Current Visit: No Status: Acute Plan to address problem: SCD to bilateral lower extremities while in bed, prophylactic anticoagulation. (7) Advance care planning Current Visit: Yes Status: Acute Plan to address problem: Disease education conducted, patient care plan discussed, patient been acknowledges understanding care plan, prognosis discussed, patient is full code, +30 minutes.
[2020-03-08 19:34] LABS: INR 1.13 (0.87-1.13)
[2020-03-08 19:35] LABS: Partial Thromboplastin Time 23.7 Sec. (24.2-36.6)
--- NOTE | 2020-03-08 20:19 | Consultation ---
History of Present Illness Consult date: 03/08/20 Reason for consult: other (nausea and vomiting) Past History Past Medical History: hyperlipidemia, seizures, stroke, other (See HPI) Past Surgical History: No surgical history (patient had what sounds like a cholecyto or choledochenteric fistula or gallstone illeus? is not sure. this occured [address] [facility]/ surgeon only removed gallstone.), Other (Reviewed) Social history: , lives with family. denies: smoking, alcohol abuse, prescription drug abuse Family history: hypertension Medications and Allergies Allergies Allergy/AdvReac Type Severity Reaction Status Date / Time No Known Allergies Allergy Verified 03/08/20 15:23 Home Medications Medication Instructions Recorded Confirmed Last Taken Type Aspirin EC [Ecotrin] 325 mg PO QDAY #30 tablet 10/08/19 02/17/20 Unknown Rx AtorvaSTATin [Lipitor] 40 mg PO QHS #30 tablet 10/08/19 02/17/20 Unknown Rx levETIRAcetam [Keppra] 500 mg PO BID #60 oral.liqd 11/24/19 02/17/20 Unknown Rx Acetaminophen [Acetaminophen TAB] 650 mg PO Q4H PRN tablet 02/19/20 Unknown Rx Aspirin 325 mg PO QDAY tablet 02/19/20 Unknown Rx AtorvaSTATin [Lipitor] 40 mg PO QHS tablet 02/19/20 Unknown Rx Metoprolol Xl [Metoprolol 100 mg PO QDAY #30 tablet 02/19/20 Unknown Rx SUCCINATE ER TAB] amLODIPine 10 mg PO DAILY #30 tablet 02/19/20 Unknown Rx bisacodyL [Dulcolax suppos] 10 mg DE QDAY PRN supp.rect 02/19/20 Unknown Rx levETIRAcetam [Keppra TAB] 500 mg PO BID tablet 02/19/20 Unknown Rx lisinopriL [Zestril TAB] 40 mg PO QDAY #30 tablet 02/19/20 Unknown Rx Active Meds: Active Medications Sodium Chloride (Sodium Chloride Flush Syringe 10 Ml) 10 ml IV BID SHAWN Sodium Chloride (Sodium Chloride Flush Syringe 10 Ml) 10 ml IV PRN PRN PRN Reason: LINE FLUSH Review of Systems - Constitutional anorexia, other (nausea and vomiting) - Gastrointestinal nausea, vomiting Exam Vital Signs Temp Pulse Resp BP Pulse Ox 98.6 F 90 18 150/90 100 03/08/20 15:27 03/08/20 15:27 03/08/20 15:27 03/08/20 15:27 03/08/20 15:27 - General physical appearance Positive: no distress, no pain, chronically ill - Eyes Positive: PERRL, normal occular movement - ENT Positive: normal pinna, normal nares, normal mucosa, no hearing loss, no congestion, poor penitent[facility] - Neck Positive: no masses, no bruits, trachea midline, no venous distension - Respiratory Positive: normal expansion, normal respiratory effort, clear to auscultation - Cardiovascular Rhythm: regular Heart Sounds: Present: S1 & S2. Absent: rub, click - Extremities Extremities: no ischemia, pulses intact, abnormal (left sided weakness) Peripheral Pulses: within normal limits - Breasts Breasts: deferred - Abdomen Abdomen: Present: soft, bowel sounds normal, other (no rebound or guarding) Hernia: none - Neurologic Neurologic: alert and oriented to time, place and person Results - Labs 03/08/20 16:10 03/08/20 16:10 Abnormal lab results 03/08/20 03/08/20 03/08/20 Range/Units 16:10 16:10 16:44 WBC 2.7 L (4.5-11.0) K/mm3 Hgb 15.6 H (10.1-14.3) gm/dl Hct 47.3 H (30.3-42.9) % RDW 15.5 H (13.2-15.2) % Plt Count 108 L (140-440) K/mm3 Lymph % (Auto) 10.5 L (13.4-35.0) % Lymph # (Auto) 0.3 L (1.2-5.4) K/mm3 Seg Neutrophils % 82.9 H (40.0-70.0) % APTT (24.2-36.6) Sec. Sodium 147 H (137-145) mmol/L Carbon Dioxide 32 H (22-30) mmol/L Total Creatine Kinase 27 L (30-135) units/L Albumin 3.3 L (3.9-5) g/dL 03/08/20 Range/Units 19:17 WBC (4.5-11.0) K/mm3 Hgb (10.1-14.3) gm/dl Hct (30.3-42.9) % RDW (13.2-15.2) % Plt Count (140-440) K/mm3 Lymph % (Auto) (13.4-35.0) % Lymph # (Auto) (1.2-5.4) K/mm3 Seg Neutrophils % (40.0-70.0) % APTT 23.7 L (24.2-36.6) Sec. Sodium (137-145) mmol/L Carbon Dioxide (22-30) mmol/L Total Creatine Kinase (30-135) units/L Albumin (3.9-5) g/dL Diabetes panel 03/08/20 Range/Units 16:10 Sodium 147 H (137-145) mmol/L Potassium 3.6 (3.6-5.0) mmol/L Chloride 99.1 (98-107) mmol/L Carbon Dioxide 32 H (22-30) mmol/L BUN 15 (7-17) mg/dL Creatinine 0.6 (0.6-1.2) mg/dL Glucose 89 (65-100) mg/dL Calcium 9.0 (8.4-10.2) mg/dL AST 18 (5-40) units/L ALT 9 (7-56) units/L Alkaline Phosphatase 96 (35-129) units/L Total Protein 8.1 (6.3-8.2) g/dL Albumin 3.3 L (3.9-5) g/dL Calcium panel 03/08/20 Range/Units 16:10 Calcium 9.0 (8.4-10.2) mg/dL Albumin 3.3 L (3.9-5) g/dL Pituitary panel 03/08/20 Range/Units 16:10 Sodium 147 H (137-145) mmol/L Potassium 3.6 (3.6-5.0) mmol/L Chloride 99.1 (98-107) mmol/L Carbon Dioxide 32 H (22-30) mmol/L BUN 15 (7-17) mg/dL Creatinine 0.6 (0.6-1.2) mg/dL Glucose 89 (65-100) mg/dL Calcium 9.0 (8.4-10.2) mg/dL Adrenal panel 03/08/20 Range/Units 16:10 Sodium 147 H (137-145) mmol/L Potassium 3.6 (3.6-5.0) mmol/L Chloride 99.1 (98-107) mmol/L Carbon Dioxide 32 H (22-30) mmol/L BUN 15 (7-17) mg/dL Creatinine 0.6 (0.6-1.2) mg/dL Glucose 89 (65-100) mg/dL Calcium 9.0 (8.4-10.2) mg/dL Total Bilirubin 0.40 (0.1-1.2) mg/dL AST 18 (5-40) units/L ALT 9 (7-56) units/L Alkaline Phosphatase 96 (35-129) units/L Total Protein 8.1 (6.3-8.2) g/dL Albumin 3.3 L (3.9-5) g/dL Assessment and Plan This is a very complex case, according to the the patient was hospitalized about 2-[address] [facility], and apparently was told that a large gallstone had eroded into her bowel, he is unsure of the details, but the gallbladder was not removed , but the gallstone was. It sounds like the patient had a gallstone illeus and perhaps a cholecysto or choledochoenteric fistula? The patient has a normal WBC, she is not tachycardic, her abd exam is relatively benign, her LFTs are normal. Her lactic acid is normal.The CT abd pelvis reveals a distended stomach, extensive pneumotosis of ascending and proximal transverse colon, gallbladder the Radiologist believes is still prese nt, there is air in the common duct /biliary system and gallbladder. I have placed a call for the transfer service at [facility] [place], but the surgeon is involved in an Emergency and unable to talk at this time. I gave my cell phone number. I will order an MRCP, and ultrasound, patient will be admitted ,npo,iv fluids,(zosyn), and attempt to recontact in am.I have spoken with the Hospitalist about this case.I would also like some GI input.The patient seems clinically stable with no fever, no tachycardia, a relatively benign abd exam, normal wBC and lactic acid. I would prefer to transfer this patient to [facility] but this option is NOT available to me at this time.
[2020-03-08 22:00] LABS: Bacteria,Urine 4+ /HPF (Negative); Bilirubin,Urine NEG (Negative); Blood,Urine MOD (Negative); Color,Urine Amber (Yellow); Mucus,Urine 3+ /HPF; Protein,Urine >500 mg/dL (Negative); Urobilinogen,Urine < 2.0 mg/dL (<2.0)
[2020-03-08] MEDS: D5W/0.45% NACL 1,000 ML IV SCH (22:27)
[2020-03-08] MEDS: PIPERACILLIN/TAZOBACTAM 3.375 3.375 GM/50 ML BAG IV SCH (23:15)
[2020-03-09 05:57] LABS: Hematocrit 29.6 % (30.3-42.9); Hemoglobin 9.7 gm/dl (10.1-14.3); Mean Corpuscular HGB Conc 33 % (30-34); Mean Corpuscular Volume 96 fl (79-97); Platelet Count 115 K/mm3 (140-440); Red Blood Count 3.07 M/mm3 (3.65-5.03); Red Cell Distribution Width 15.3 % (13.2-15.2)
[2020-03-09 05:58] LABS: Basophils % (Auto) 0.2 % (0.0-1.8); Eosinophils % (Auto) 0.5 % (0.0-4.3); Lymphocytes # (Auto) 0.4 K/mm3 (1.2-5.4); Lymphocytes % (Auto) 8.7 % (13.4-35.0); Monocytes # (Auto) 0.7 K/mm3 (0.0-0.8)
[2020-03-09 06:14] LABS: Alanine Aminotransferase 6 units/L (7-56); Albumin 2.5 g/dL (3.9-5); Blood Urea Nitrogen 14 mg/dL (7-17); Calcium 7.9 mg/dL (8.4-10.2); Hemolysis Index 6
[2020-03-09] MEDS: PIPERACILLIN/TAZOBACTAM 3.375 3.375 GM/50 ML BAG IV SCH ×3 (06:15→18:02)
[2020-03-09] MEDS: D5W/0.45% NACL 1,000 ML IV SCH ×2 (06:15→10:19)
[2020-03-09 06:16] LABS: BUN/Creatinine Ratio 23
--- NOTE | 2020-03-09 09:34 | Progress Note ---
<DONTE RENEE - Last Filed: 03/09/20 18:45> Assessment and Plan - Patient Problems (1) Bowel perforation Current Visit: Yes Status: Acute Plan to address problem: 03/08 CT abdomen/pelvis without contrast shows pneumonitis intestinalis involving the ascending colon, proximal transverse colon and likely the cecum. Associated with bowel perforation with the majority of air in the upper abdomen suggesting perforation of the region of the hepatic flexure and mild bibasilar emphysema with mild left basilar atelectasis, a small to moderate pericardial effusion and calcifications in the region of the pancreas possibly representing chronic pancreatitis Surgery consulted: Attempted to transfer the patient to [place] however was unable to, Possible SMA syndrome vs gallstone illeus and perhaps a cholecysto vs choledochoenteric fistula NPO, IVF Trend CBC Trend CMP Empiric antibiotics Abdominal ultrasound pending Abdominal CTA pending RN to place NG tube 03/09 GI consulted per surgery request; agree with obtaining MRCP (2) Acute encephalopathy Current Visit: No Status: Acute Plan to address problem: Supportive care Reorientation as needed Correct metabolic derangements Fall and aspiration precautions (3) Hypokalemia Current Visit: No Status: Acute Plan to address problem: 03/09 potassium 3.4, repleted with 40 mEq IV KCl Trend BMP Replete as needed (4) UTI (urinary tract infection) Current Visit: Yes Status: Acute Plan to address problem: 03/08 UA shows small LE, positive for nitrates and pyuria IV antibiotic therapy Trend CBC Avoid Sharif catheter possible (5) 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 intake when able of statin, aspirin, anti-hypertensive regimen (6) Seizure disorder Current Visit: No Status: Chronic Plan to address problem: Seizure precautions Supportive long-term Keppra 500 mg p.o. twice daily changed to IV 500 mg twice daily while n.p.o. (7) Hypertension Current Visit: No Status: Chronic Plan to address problem: Blood pressure monitor per protocol Resume home antihypertensive regimen when not n.p.o. IV labetalol as needed for SBP greater than 160 (8) Protein-calorie malnutrition, severe Current Visit: No Status: Chronic Plan to address problem: Supportive care Increase protein intake with dietary supplementation as tolerated postoperatively (9) DVT prophylaxis Current Visit: No Status: Acute Plan to address problem: SCDs to bilateral lower extremities while in bed History Interval history: 59 YO Female with CVA complicated by Debility, Expressive Aphasia, HTN, Seizure Disorder, HLD, Sacral Decubitus Ulcer presents to ED for 3 days of vomiting prior to arrival on 03/08 and found to be in distress by home health nurse and EMS. CT scan of the abdomen and pelvis revealed perforated viscus. Surgical team consulted in the emergency department. Surgery recommend for transfer to [facility] however was unable to get in contact with a surgeon there and ordered a abd US for evaluation. Today she is hypokalemic, and has a marked decrease in her h/h therefore a stat occult and type & cross was ordered. Home keppra restarted as IV today. Hospitalist Physical - Constitutional Vitals: Temp Pulse Resp BP Pulse Ox 97.9 F 60 13 161/83 98 03/09/20 04:00 03/09/20 01:00 03/09/20 01:00 03/09/20 01:00 03/09/20 01:00 General appearance: Present: no acute distress, cachectic - EENT Eyes: Present: PERRL, EOM intact ENT: hearing decreased, poor dentition - Neck Neck: Present: normal ROM - Respiratory Respiratory effort: normal Respiratory: bilateral: CTA - Cardiovascular Rhythm: regular Heart Sounds: Present: S1 & S2. Absent: systolic murmur, diastolic murmur - Extremities Extremities: no ischemia, pulses intact, pulses symmetrical, No edema, normal temperature, normal color Peripheral Pulses: within normal limits - Abdominal General gastrointestinal: soft, non-tender, non-distended, normal bowel sounds - Integumentary Integumentary: Present: warm, dry - Psychiatric Psychiatric: cooperative - Neurologic Neurologic: CNII-XII intact, moves all extremities Results - Labs CBC & Chem 7: 03/09/20 04:13 03/09/20 04:13 Labs: Laboratory Last Values WBC 4.2 K/mm3 (4.5-11.0) L 03/09/20 04:13 RBC 3.07 M/mm3 (3.65-5.03) L 03/09/20 04:13 Hgb 9.7 gm/dl (10.1-14.3) L D 03/09/20 04:13 Hct 29.6 % (30.3-42.9) L D 03/09/20 04:13 MCV 96 fl (79-97) 03/09/20 04:13 MCH 32 pg (28-32) 03/09/20 04:13 MCHC 33 % (30-34) 03/09/20 04:13 RDW 15.3 % (13.2-15.2) H 03/09/20 04:13 Plt Count 115 K/mm3 (140-440) L 03/09/20 04:13 Lymph % (Auto) 8.7 % (13.4-35.0) L 03/09/20 04:13 [place] % (Auto) Rough Rib Grader 03/09/20 04:13 Eos % (Auto) 0.5 % (0.0-4.3) 03/09/20 04:13 Baso % (Auto) 0.2 % (0.0-1.8) 03/09/20 04:13 Lymph # (Auto) 0.4 K/mm3 (1.2-5.4) L 03/09/20 04:13 [place] # (Auto) 0.7 K/mm3 (0.0-0.8) 03/09/20 04:13 Eos # (Auto) 0.0 K/mm3 (0.0-0.4) 03/09/20 04:13 Baso # (Auto) 0.0 K/mm3 (0.0-0.1) 03/09/20 04:13 Seg Neutrophils % 73.9 % (40.0-70.0) H 03/09/20 04:13 Seg Neutrophils # 3.1 K/mm3 (1.8-7.7) 03/09/20 04:13 PT 14.6 Sec. (12.2-14.9) 03/08/20 19:17 INR 1.13 (0.87-1.13) 03/08/20 19:17 APTT 23.7 Sec. (24.2-36.6) L 03/08/20 19:17 Sodium 142 mmol/L (137-145) 03/09/20 04:13 Potassium 3.2 mmol/L (3.6-5.0) L 03/09/20 04:13 Chloride 102.3 mmol/L (98-107) 03/09/20 04:13 Carbon Dioxide 32 mmol/L (22-30) H 03/09/20 04:13 Anion Gap 11 mmol/L 03/09/20 04:13 BUN 14 mg/dL (7-17) 03/09/20 04:13 Creatinine 0.6 mg/dL (0.6-1.2) 03/09/20 04:13 Estimated GFR > 60 ml/min 03/09/20 04:13 BUN/Creatinine Ratio 23 % 03/09/20 04:13 Glucose 105 mg/dL (65-100) H 03/09/20 04:13 Lactic Acid 0.90 mmol/L (0.7-2.0) 03/08/20 21:40 Calcium 7.9 mg/dL (8.4-10.2) L 03/09/20 04:13 Magnesium 2.00 mg/dL (1.7-2.3) 03/08/20 16:44 Total Bilirubin 0.30 mg/dL (0.1-1.2) 03/09/20 04:13 AST 15 units/L (5-40) 03/09/20 04:13 ALT 6 units/L (7-56) L 03/09/20 04:13 Alkaline Phosphatase 75 units/L (35-129) 03/09/20 04:13 Total Creatine Kinase 27 units/L (30-135) L 03/08/20 16:44 Total Protein 6.7 g/dL (6.3-8.2) 03/09/20 04:13 Albumin 2.5 g/dL (3.9-5) L 03/09/20 04:13 Albumin/Globulin Ratio 0.6 % 03/09/20 04:13 Urine Color Rosangela (Yellow) 03/08/20 21:39 Urine Turbidity Cloudy (Clear) 03/08/20 21:39 Urine pH 5.0 (5.0-7.0) 03/08/20 21:39 Ur Specific Wellborn 1.029 (1.003-1.030) 03/08/20 21:39 Urine Protein >500 mg/dL (Negative) 03/08/20 21:39 Urine Glucose (UA) Neg mg/dL (Negative) 03/08/20 21:39 Urine Ketones 20 mg/dL (Negative) 03/08/20 21:39 Urine Blood Mod (Negative) 03/08/20 21:39 Urine Nitrite Pos (Negative) 03/08/20 21:39 Urine Bilirubin Neg (Negative) 03/08/20 21:39 Urine Urobilinogen < 2.0 mg/dL (<2.0) 03/08/20 21:39 Ur Leukocyte Esterase Sm (Negative) 03/08/20 21:39 Urine WBC (Auto) 15.0 /HPF (0.0-6.0) H 03/08/20 21:39 Urine RBC (Auto) 11.0 /HPF (0.0-6.0) 03/08/20 21:39 U Epithel Cells (Auto) 8.0 /HPF (0-13.0) 03/08/20 21:39 Urine Bacteria (Auto) 4+ /HPF (Negative) 03/08/20 21:39 Urine Mucus 3+ /HPF 03/08/20 21:39 Microbiology: Microbiology 03/08/20 19:50 Peripheral/Venous Blood Culture - Preliminary Culture in Progress 03/08/20 19:50 Peripheral/Venous Blood Culture - Preliminary Culture in Progress Sharif/IV: Voiding Method External Female Catheter IV Catheter Type [Left Forearm INT / Saline Lock ] Active Medications - Current Medications Current Medications: Generic Name Dose Route Start Last Admin Trade Name Freq PRN Reason Stop Dose Admin Dextrose 50 ml 03/09/20 09:00 D50w (25gm) Syringe IV Q30MIN PRN Hypoglycemia Protocol Dextrose/Sodium Chloride 1,000 mls @ 100 mls/hr 03/08/20 21:00 03/09/20 06:15 D5/0.45ns IV 100 mls/hr DIRECT SHAWN Administration Piperacillin Sod/Tazobactam Sod 3.375 gm in 50 mls @ 100 mls/hr 03/09/20 12:00 Zosyn/Ns 3.375gm/50ml IV Q6HR SHAWN Protocol Levetiracetam 500 mg/ Dextrose 105 mls @ 400 mls/hr 03/09/20 10:00 IV Q12HR SHAWN Potassium Chloride 10 meq in 100 mls @ 100 mls/hr 03/09/20 09:00 Kcl 10meq/100ml IV 03/09/20 12:59 Q1H SHAWN Insulin Human Regular 0 unit 03/09/20 09:30 Humulin R SUB-Q Q6HR SHAWN Protocol Sodium Chloride 10 ml 03/08/20 22:00 03/08/20 22:27 Sodium Chloride Flush Syringe 10 Ml IV 10 ml BID SHAWN Administration Sodium Chloride 10 ml 03/08/20 19:14 Sodium Chloride Flush Syringe 10 Ml IV PRN PRN LINE FLUSH <FERNANDA JON R - Last Filed: 03/09/20 21:42> History Interval history: I saw and evaluated the patient. I agree with the findings and the plan of care as documented in the Nurse Practitioner's~note, with the following corrections and additions. follow CTA abdomen/pelvis, npo for now, place NG tube. Hospitalist Physical - Constitutional Vitals: Temp Pulse Resp BP Pulse Ox 98.2 F 61 12 139/83 98 03/09/20 20:00 03/09/20 20:30 03/09/20 20:30 03/09/20 20:30 03/09/20 20:30 Results - Labs CBC & Chem 7: 03/09/20 20:45 03/09/20 04:13 Labs: Laboratory Last Values WBC 4.2 K/mm3 (4.5-11.0) L 03/09/20 04:13 RBC 3.07 M/mm3 (3.65-5.03) L 03/09/20 04:13 Hgb 10.4 gm/dl (10.1-14.3) 03/09/20 20:45 Hct 31.5 % (30.3-42.9) 03/09/20 20:45 MCV 96 fl (79-97) 03/09/20 04:13 MCH 32 pg (28-32) 03/09/20 04:13 MCHC 33 % (30-34) 03/09/20 04:13 RDW 15.3 % (13.2-15.2) H 03/09/20 04:13 Plt Count 115 K/mm3 (140-440) L 03/09/20 04:13 Lymph % (Auto) 8.7 % (13.4-35.0) L 03/09/20 04:13 [place] % (Auto) Rough Rib Grader 03/09/20 04:13 Eos % (Auto) 0.5 % (0.0-4.3) 03/09/20 04:13 Baso % (Auto) 0.2 % (0.0-1.8) 03/09/20 04:13 Lymph # (Auto) 0.4 K/mm3 (1.2-5.4) L 03/09/20 04:13 [place] # (Auto) 0.7 K/mm3 (0.0-0.8) 03/09/20 04:13 Eos # (Auto) 0.0 K/mm3 (0.0-0.4) 03/09/20 04:13 Baso # (Auto) 0.0 K/mm3 (0.0-0.1) 03/09/20 04:13 Seg Neutrophils % 73.9 % (40.0-70.0) H 03/09/20 04:13 Seg Neutrophils # 3.1 K/mm3 (1.8-7.7) 03/09/20 04:13 PT 14.6 Sec. (12.2-14.9) 03/08/20 19:17 INR 1.13 (0.87-1.13) 03/08/20 19:17 APTT 23.7 Sec. (24.2-36.6) L 03/08/20 19:17 Sodium 142 mmol/L (137-145) 03/09/20 04:13 Potassium 3.2 mmol/L (3.6-5.0) L 03/09/20 04:13 Chloride 102.3 mmol/L (98-107) 03/09/20 04:13 Carbon Dioxide 32 mmol/L (22-30) H 03/09/20 04:13 Anion Gap 11 mmol/L 03/09/20 04:13 BUN 14 mg/dL (7-17) 03/09/20 04:13 Creatinine 0.6 mg/dL (0.6-1.2) 03/09/20 04:13 Estimated GFR > 60 ml/min 03/09/20 04:13 BUN/Creatinine Ratio 23 % 03/09/20 04:13 Glucose 105 mg/dL (65-100) H 03/09/20 04:13 Hemoglobin A1c 5.1 % (4-6) 03/09/20 04:13 Lactic Acid 0.90 mmol/L (0.7-2.0) 03/08/20 21:40 Calcium 7.9 mg/dL (8.4-10.2) L 03/09/20 04:13 Magnesium 2.00 mg/dL (1.7-2.3) 03/08/20 16:44 Total Bilirubin 0.30 mg/dL (0.1-1.2) 03/09/20 04:13 AST 15 units/L (5-40) 03/09/20 04:13 ALT 6 units/L (7-56) L 03/09/20 04:13 Alkaline Phosphatase 75 units/L (35-129) 03/09/20 04:13 Total Creatine Kinase 27 units/L (30-135) L 03/08/20 16:44 Total Protein 6.7 g/dL (6.3-8.2) 03/09/20 04:13 Albumin 2.5 g/dL (3.9-5) L 03/09/20 04:13 Albumin/Globulin Ratio 0.6 % 03/09/20 04:13 Urine Color Rosangela (Yellow) 03/08/20 21:39 Urine Turbidity Cloudy (Clear) 03/08/20 21:39 Urine pH 5.0 (5.0-7.0) 03/08/20 21:39 Ur Specific Wellborn 1.029 (1.003-1.030) 03/08/20 21:39 Urine Protein >500 mg/dL (Negative) 03/08/20 21:39 Urine Glucose (UA) Neg mg/dL (Negative) 03/08/20 21:39 Urine Ketones 20 mg/dL (Negative) 03/08/20 21:39 Urine Blood Mod (Negative) 03/08/20 21:39 Urine Nitrite Pos (Negative) 03/08/20 21:39 Urine Bilirubin Neg (Negative) 03/08/20 21:39 Urine Urobilinogen < 2.0 mg/dL (<2.0) 03/08/20 21:39 Ur Leukocyte Esterase Sm (Negative) 03/08/20 21:39 Urine WBC (Auto) 15.0 /HPF (0.0-6.0) H 03/08/20 21:39 Urine RBC (Auto) 11.0 /HPF (0.0-6.0) 03/08/20 21:39 U Epithel Cells (Auto) 8.0 /HPF (0-13.0) 03/08/20 21:39 Urine Bacteria (Auto) 4+ /HPF (Negative) 03/08/20 21:39 Urine Mucus 3+ /HPF 03/08/20 21:39 Nasal Screen MRSA (PCR) Negative (Negative) 03/09/20 Unknown Blood Type B POSITIVE 03/09/20 18:30 Antibody Screen Negative 03/09/20 18:30 Microbiology: Microbiology 03/08/20 19:50 Peripheral/Venous Blood Culture - Preliminary 03/08/20 19:50 Peripheral/Venous Blood Culture - Preliminary Sharif/IV: Voiding Method External Female Catheter IV Catheter Type [Right Upper Mid-line arm] IV Catheter Type [Left Forearm INT / Saline Lock ] Active Medications - Current Medications Current Medications: Generic Name Dose Route Start Last Admin Trade Name Freq PRN Reason Stop Dose Admin Dextrose 50 ml 03/09/20 09:00 D50w (25gm) Syringe IV Q30MIN PRN Hypoglycemia Protocol Dextrose/Sodium Chloride 1,000 mls @ 100 mls/hr 03/08/20 21:00 03/09/20 10:19 D5/0.45ns IV 100 mls/hr DIRECT SHAWN Administration Piperacillin Sod/Tazobactam Sod 3.375 gm in 50 mls @ 100 mls/hr 03/09/20 12:00 03/09/20 18:02 Zosyn/Ns 3.375gm/50ml IV 100 mls/hr Q6HR SHAWN Administration Protocol Levetiracetam 500 mg/ Dextrose 105 mls @ 400 mls/hr 03/09/20 10:00 03/09/20 11:05 IV 400 mls/hr Q12HR SHAWN Administration Insulin Human Regular 0 unit 03/09/20 09:30 03/09/20 18:04 Humulin R SUB-Q Not Given Q6HR SHAWN Protocol Labetalol HCl 10 mg 03/09/20 14:17 Labetalol IV Q4H PRN Hypertension Sodium Chloride 10 ml 03/08/20 22:00 03/09/20 13:39 Sodium Chloride Flush Syringe 10 Ml IV 10 ml BID SHAWN Administration Sodium Chloride 10 ml 03/08/20 19:14 Sodium Chloride Flush Syringe 10 Ml IV PRN PRN LINE FLUSH Nutrition/Malnutrition Assess - Dietary Evaluation Nutrition/Malnutrition Findings: Nutrition Notes Start: 03/09/20 12:52 Freq: Status: Active Protocol: Document 03/09/20 12:53 PHIL (Rec: 03/09/20 13:07 PHIL [id number]) Co-Sign 03/09/20 12:53 MK Nutrition Notes Need for Assessment generated 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 Pt was unable to fully communicate well due to aphagia, but consented to nutrition-focused physical exam. Pt was lying down on right side of body. Severe fat and muscle wasting: hollowed temples, protruding L shoulder , L clavicle, and L ribs, no fat folds on L upper arm. L hand edema present. ED noted pt N/V intermittently for 2 weeks and continuously for 3 days. Pt has sacral pressure wound upon adm. Due to severity of malnutrition, TPN warranted if unable to start TF or regular diet. Burn Absent Trauma Absent GI Symptoms None Current % PO Negligible Minimum of two criteria Yes Energy Intake (severe) < or equal to 50% Estimated Energy Requirement > or equal to 5 days Body Fat Depletion Moderate depletion (severe) Muscle Mass Moderate Depletion (severe) Fluid Accumulation Mild (non-severe) #1 Nutrition Diagnosis Malnutrition Etiology chronic disease As Evidenced by Signs and Symptoms pt's body shows severe muscle and fat wasting on upper torso Is patient on ventilator? No Is Patient Ambulatory and/or Out of Bed No REE-([facility]-confined to bed) 1135.476 Kcal/Kg value to use for calculation 40 Approximate Energy Requirements Using 1464 kcal/Kg Calculation Used for Recommendations Kcal/kg Additional Notes Protein 1.2-1.5g/k-56g Fluid: 1ml/kcal Nutrition Intervention Change Diet Order: Recommend TPN cristian due to severe malnutrition if unable to provide regular diet or TF. Goal #1 Pt receives nutrition support Follow-Up By: 03/10/20 Additional Comments F/u for nutrition support
[2020-03-09] MEDS: levETIRAcetam 500 MG in DEXTROSE 5% IN WATER 100 ML IV SCH ×2 (11:05→22:30)
[2020-03-09] MEDS: POTASSIUM CHLORIDE 10 MEQ 10 MEQ/100 ML BAG IV SCH ×4 (11:05→16:47)
[2020-03-09] MEDS ORDERED: FLU VACC QUAD 2020-2021 (6 months +)/PF 60 0.5 ML SYRINGE IM ONE (12:00)
[2020-03-09] MEDS: INSULIN REGULAR, HUMAN 100 UNIT/ML 3ML VIAL SUB-Q SCH ×3 (13:33→18:04)
--- NOTE | 2020-03-09 16:03 | Progress Note ---
Assessment and Plan Pt appears comfortable, in no distress, NSR, afebrile, no complaints of abd pain, no rebound or guarding,CT reviewed with Dr. Lugo, He suspects SMA syndrome, (patient has experienced weight loss) MRCP, ultrasound still pending, ordered CTA of abd/ pelvis, continue NPO, NG to LIS, iv antibiotics, GI consulted, continue present treatment, I spoke with by phone (again requested records), this a very complex case, work up in progress. Subjective Date of service: 03/09/20 Patient Reports: Positive: no new complaints Objective Vital Signs - 12hr 03/09/20 04:00 Temperature 97.9 F - General physical appearance no distress - Eyes PERRL, normal occular movement - ENT normal pinna, normal nares, normal mucosa, no hearing loss, no congestion - Neck no masses, no bruits, trachea midline, no lymphadectomy, no venous distension - Respiratory normal expansion, normal respiratory effort, clear to percussion, clear to auscultation - Abdomen soft, bowel sounds normal, other (no rebound or guarding) Hernia: none - Labs 03/09/20 04:13 03/09/20 04:13 Diabetes panel 03/08/20 03/09/20 03/09/20 Range/Units 16:10 04:13 04:13 Sodium 147 H 142 (137-145) mmol/L Potassium 3.6 3.2 L (3.6-5.0) mmol/L Chloride 99.1 102.3 (98-107) mmol/L Carbon Dioxide 32 H 32 H (22-30) mmol/L BUN 15 14 (7-17) mg/dL Creatinine 0.6 0.6 (0.6-1.2) mg/dL Glucose 89 105 H (65-100) mg/dL Hemoglobin A1c 5.1 (4-6) % Calcium 9.0 7.9 L (8.4-10.2) mg/dL AST 18 15 (5-40) units/L ALT 9 6 L (7-56) units/L Alkaline Phosphatase 96 75 (35-129) units/L Total Protein 8.1 6.7 (6.3-8.2) g/dL Albumin 3.3 L 2.5 L (3.9-5) g/dL Calcium panel 03/08/20 03/09/20 Range/Units 16:10 04:13 Calcium 9.0 7.9 L (8.4-10.2) mg/dL Albumin 3.3 L 2.5 L (3.9-5) g/dL Pituitary panel 03/08/20 03/09/20 Range/Units 16:10 04:13 Sodium 147 H 142 (137-145) mmol/L Potassium 3.6 3.2 L (3.6-5.0) mmol/L Chloride 99.1 102.3 (98-107) mmol/L Carbon Dioxide 32 H 32 H (22-30) mmol/L BUN 15 14 (7-17) mg/dL Creatinine 0.6 0.6 (0.6-1.2) mg/dL Glucose 89 105 H (65-100) mg/dL Calcium 9.0 7.9 L (8.4-10.2) mg/dL Adrenal panel 03/08/20 03/09/20 Range/Units 16:10 04:13 Sodium 147 H 142 (137-145) mmol/L Potassium 3.6 3.2 L (3.6-5.0) mmol/L Chloride 99.1 102.3 (98-107) mmol/L Carbon Dioxide 32 H 32 H (22-30) mmol/L BUN 15 14 (7-17) mg/dL Creatinine 0.6 0.6 (0.6-1.2) mg/dL Glucose 89 105 H (65-100) mg/dL Calcium 9.0 7.9 L (8.4-10.2) mg/dL Total Bilirubin 0.40 0.30 (0.1-1.2) mg/dL AST 18 15 (5-40) units/L ALT 9 6 L (7-56) units/L Alkaline Phosphatase 96 75 (35-129) units/L Total Protein 8.1 6.7 (6.3-8.2) g/dL Albumin 3.3 L 2.5 L (3.9-5) g/dL
--- NOTE | 2020-03-09 16:56 | Event Note ---
Date: 03/09/20 Full GI consult dictated - pt w/ abd pain, nausea, ct w/ pneumatosis intestinalis and free air as well as air in biliary tree - IV antibiotics - NPO - MRCP ok but doubt ERCP and given previous reported surgery if was needed would be better served tertiary center - management per surgery for main ct scan findings as above - will follow for now
--- NOTE | 2020-03-09 17:05 | Consultation ---
History of Present Illness Consult date: 03/09/20 Requesting physician: FERNANDA JON Reason for consult: other (Pneumatosis intestinalis, critical care) History of present illness: History was obtained from discussions with the general surgeon and review of the medical records. Patient has dysarthria from previous stroke and I was unable to reach her . History per admitting physician 59 YO Female with CVA complicated by Debility, Expressive Aphasia, HTN, Seizure Disorder, HLD, Sacral Decubitus Ulcer presents to ED for evaluation. Patient is unable to provide history. Patient is at bedside and provides history. Patient is bedbound, nonambulatory and has a palliative performance score of 30%. Patient requires 6/6 assistance with activities of daily living. As per the patient has experienced multiple episodes of vomiting over the past 3 days. Patient was seen and evaluated by home health nurse and found to be in distress. EMS was notified and upon arrival the patient was found to be in distress and subsequently transported to [facility] for further care and evaluation of the aforementioned symptoms. Patient seen and evaluated in the emergency department. Lab and imaging studies reviewed. CT scan of the abdomen and pelvis revealed perforated viscus. Surgical team consulted in the emergency department for further care and evaluation. No reports of fever, chills, chest pain, palpitations, productive cough, skin rash, recent ill contacts, or known exposure to COVID-19. I was asked to see the patient by the surgical service foR critical care evaluation. This is a 59 year old woman, who came in for nausea and vomiting and on imaging was found to have an abnormal Ctscan of the abdomen and pelvis. 03/08 CT abdomen/pelvis without contrast shows pneumonitis intestinalis involvi ng the ascending colon, proximal transverse colon and likely the cecum. Associated with bowel perforation with the majority of air in the upper abdomen suggesting perforation of the region of the hepatic flexure and mild bibasilar emphysema with mild left basilar atelectasis, a small to moderate pericardial effusion and calcifications in the region of the pancreas possibly representing chronic pancreatitis. Patient was seen and examined. Vitals, labs, medications, chart and imaging were reviewed. She is resting peacefully in bed. Answers in monosyllables with slow speech. she currently denies any abdominal pain. REVIEW OF SYSTEMS Constitutional: denies: fever Eyes: denies: eye discharge ENT: denies: epistaxis Respiratory: denies: cough Cardiovascular: denies: chest pain Gastrointestinal: nausea, vomiting. denies: abdominal pain Genitourinary: denies: dysuria Hematological/Lymphatic: denies: easy bleeding Past History Past Medical History: hyperlipidemia, seizures, stroke, other (See HPI) Past Surgical History: No surgical history (patient had what sounds like a cholecyto or choledochenteric fistula or gallstone illeus? is not sure. this occured [address] [facility]/ surgeon only removed gallstone.), Other (Reviewed) Social history: , lives with family. denies: smoking, alcohol abuse, prescription drug abuse Family history: hypertension Medications and Allergies Allergies Allergy/AdvReac Type Severity Reaction Status Date / Time No Known Allergies Allergy Verified 03/08/20 15:23 Home Medications Medication Instructions Recorded Confirmed Last Taken Type Aspirin EC [Ecotrin] 325 mg PO QDAY #30 tablet 10/08/19 03/08/20 Unknown Rx AtorvaSTATin [Lipitor] 40 mg PO QHS #30 tablet 10/08/19 03/08/20 Unknown Rx levETIRAcetam [Keppra] 500 mg PO BID #60 oral.liqd 11/24/19 03/08/20 Unknown Rx Acetaminophen [Acetaminophen TAB] 650 mg PO Q4H PRN tablet 02/19/20 03/08/20 Unknown Rx Aspirin 325 mg PO QDAY tablet 02/19/20 03/08/20 Unknown Rx AtorvaSTATin [Lipitor] 40 mg PO QHS tablet 02/19/20 03/08/20 Unknown Rx Metoprolol Xl [Metoprolol 100 mg PO QDAY #30 tablet 02/19/20 03/08/20 Unknown Rx SUCCINATE ER TAB] amLODIPine 10 mg PO DAILY #30 tablet 02/19/20 03/08/20 Unknown Rx bisacodyL [Dulcolax suppos] 10 mg CA QDAY PRN supp.rect 02/19/20 03/08/20 Unknown Rx levETIRAcetam [Keppra TAB] 500 mg PO BID tablet 02/19/20 03/08/20 Unknown Rx lisinopriL [Zestril TAB] 40 mg PO QDAY #30 tablet 02/19/20 03/08/20 Unknown Rx Active Meds: Active Medications Dextrose (D50w (25gm) Syringe) 50 ml IV Q30MIN PRN; Protocol PRN Reason: Hypoglycemia Dextrose/Sodium Chloride (D5/0.45ns) 1,000 mls @ 100 mls/hr IV DIRECT SHAWN Last Admin: 03/09/20 10:19 Dose: 100 mls/hr Documented by: Piperacillin Sod/Tazobactam Sod (Zosyn/Ns 3.375gm/50ml) 3.375 gm in 50 mls @ 100 mls/hr IV Q6HR SHAWN; Protocol Last Admin: 03/09/20 14:48 Dose: 100 mls/hr Documented by: Levetiracetam 500 mg/ Dextrose 105 mls @ 400 mls/hr IV Q12HR SHAWN Last Admin: 03/09/20 11:05 Dose: 400 mls/hr Documented by: Insulin Human Regular (Humulin R) 0 unit SUB-Q Q6HR SHAWN; Protocol Last Admin: 03/09/20 13:56 Dose: Not Given Documented by: Labetalol HCl (Labetalol) 10 mg IV Q4H PRN PRN Reason: Hypertension Sodium Chloride (Sodium Chloride Flush Syringe 10 Ml) 10 ml IV BID [facility] Last Admin: 03/09/20 13:39 Dose: 10 ml Documented by: Sodium Chloride (Sodium Chloride Flush Syringe 10 Ml) 10 ml IV PRN PRN PRN Reason: LINE FLUSH Physical Examination Vital signs: Vital Signs Temp Pulse Resp BP Pulse Ox 98.6 F 90 18 150/90 100 03/08/20 15:27 03/08/20 15:27 03/08/20 15:27 03/08/20 15:27 03/08/20 15:27 General appearance: no acute distress, other (chronically ill looking, lanugo hair, temporal wasting) Eyes: non-icteric ENT: oropharynx dry Neck: supple, no lymphadenopathy, no JVD Effort: normal Ascultation: Bilateral: clear, diminished breath sounds Cardiovascular: regular rate and rhythm, other (S1,S2) Gastrointestinal: normoactive bowel sounds, soft, non-tender, non-distended Integumentary: normal Extremities: no cyanosis, no edema, pink and warm, pulses normal pupils equal and round, CN II-XII normal, other (dysarthria) affect normal Results - Laboratory Findings CBC and BMP: 03/10/20 03:33 10/30/20 03:33 PT/INR, D-dimer PT 14.6 Sec. (12.2-14.9) 03/08/20 19:17 INR 1.13 (0.87-1.13) 03/08/20 19:17 Abnormal lab findings: Abnormal Labs 03/08/20 03/08/20 03/08/20 16:10 16:10 16:44 WBC 2.7 L RBC Hgb 15.6 H Hct 47.3 H RDW 15.5 H Plt Count 108 L Lymph % (Auto) 10.5 L Lymph # (Auto) 0.3 L Seg Neutrophils % 82.9 H APTT Sodium 147 H Potassium Carbon Dioxide 32 H Glucose Calcium ALT Total Creatine Kinase 27 L Albumin 3.3 L Urine WBC (Auto) 03/08/20 03/08/20 03/09/20 19:17 21:39 04:13 WBC 4.2 L RBC 3.07 L Hgb 9.7 L D Hct 29.6 L D RDW 15.3 H Plt Count 115 L Lymph % (Auto) 8.7 L Lymph # (Auto) 0.4 L Seg Neutrophils % 73.9 H APTT 23.7 L Sodium Potassium Carbon Dioxide Glucose Calcium ALT Total Creatine Kinase Albumin Urine WBC (Auto) 15.0 H 03/09/20 04:13 WBC RBC Hgb Hct RDW Plt Count Lymph % (Auto) Lymph # (Auto) Seg Neutrophils % APTT Sodium Potassium 3.2 L Carbon Dioxide 32 H Glucose 105 H Calcium 7.9 L ALT 6 L Total Creatine Kinase Albumin 2.5 L Urine WBC (Auto) - Diagnostic Findings Chest x-ray: image reviewed Assessment and Plan Abnormal CT abdomen and pelvis -From my evaluation , she appears chronically ill and 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 She clincally does not appear to have anand perforation or any symptoms or signs suggestive of peritonitis. I have discussed this with the surgeon and hospitalist service. She needs a CTA of feli abdomen and pelvis and NGT to LIS to decompress the stomach. She is to be kept NPO for -GI has been consulted by the primary service -MRCP and ARUQ USS has been ordered by General Surgery. -Patient's is to bring in her old records for review. -Of note she has pancytopenia,which needs to be closely monitored and may need further work up if persistent. 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
--- NOTE | 2020-03-09 17:35 | Event Note ---
Date: 03/09/[address] Yusef Martinez /[facility] and have asked him to evaluate this patient for possible SMA syndrome. W/U in progress.
--- NOTE | 2020-03-09 19:08 | XRay Report ---
ABDOMEN 1 VIEW 03/09/2020 6:00 PM INDICATION / CLINICAL INFORMATION: NGT plcmt. COMPARISON: CT dated 03/08/20 FINDINGS: TUBES / LINES: Esophagogastric tube is present in the distal stomach. BOWEL GAS PATTERN: Mildly dilated loops of large and small bowel are unchanged. FREE AIR / EXTRALUMINAL GAS: Colonic pneumatosis is unchanged. No pneumoperitoneum. ADDITIONAL FINDINGS: No significant additional findings. IMPRESSION: 1. Esophagogastric tube in expected position. 2. Colonic pneumatosis, unchanged. Signer Name: Luis Holt MD Signed: 03/09/2020 7:04 PM Workstation Name: [id number]
[2020-03-09 21:01] LABS: Hematocrit 31.5 % (30.3-42.9); Hemoglobin 10.4 gm/dl (10.1-14.3)
--- NOTE | 2020-03-09 21:43 | Cat Scan Report ---
CTA ABDOMEN AND PELVIS WITH CONTRAST INDICATION / CLINICAL INFORMATION: SMA syndrome. Nausea and vomiting. TECHNIQUE: Axial CT images were obtained through the abdomen and pelvis before and after after injection of 100 mL Omnipaque 300 IV contrast. Arterial phase and portal venous phase images were obtained. 3 plane MO P / 3D reconstructions were produced. All CT scans at this location are performed using CT dose reduc tion for ALARA by means of automated exposure control. COMPARISON: Noncontrast CT dated 03/08/20 FINDINGS: Aorta: Mild to moderate atherosclerotic calcification without acute abnormality or aneurysmal dilatat ion. Renal arteries: No significant abnormality. Celiac artery: No significant abnormality. Superior Mesenteric Artery: Minimal atherosclerotic disease but no stenosis or occlusion. Inferior mesenteric artery: No significant abnormality. Right Iliac Arteries: Mild to moderate atherosclerotic calcification but no stenosis or occlusion.. Left Iliac Arteries: Mild to moderate atherosclerotic calcification but no stenosis or occlusion.. Additional Findings: Interval placement of nasogastric tube with decompression of the stomach and duo denum. There is narrowing between the superior mesenteric artery and aorta with mass effect on the tr ansverse portion of the duodenum. There is no change in pneumatosis intestinalis with a small amount of pneumoperitoneum. No bowel thickening. The appendix appears normal. Skeletal Structures: No significant abnormality. IMPRESSION: 1. Mild to moderate atherosclerotic disease of the abdominal aortoiliac arteries and mesenteric arter ies. No mesenteric stenosis or occlusion. 2. Narrowing between the superior mesenteric artery and aorta with mass effect on the transverse/dist al duodenum. Findings may represent SMA syndrome. 3. Pneumatosis intestinalis with small amount of pneumoperitoneum, unchanged. No focal area of bowel ischemia noted. Signer Name: Luis Holt MD Signed: 03/09/2020 9:38 PM Workstation Name: [id number]
[2020-03-10] MEDS: PIPERACILLIN/TAZOBACTAM 3.375 3.375 GM/50 ML BAG IV SCH ×4 (00:08→18:04)
[2020-03-10] MEDS: INSULIN REGULAR, HUMAN 100 UNIT/ML 3ML VIAL SUB-Q SCH ×3 (00:08→18:02)
--- NOTE | 2020-03-10 02:21 | Consultation ---
REFERRING PHYSICIAN: Jasmine Kelsey M.D. INDICATIONS: 1. Abnormal CT scan. 2. Abdominal pain. HISTORY OF PRESENT ILLNESS: The patient is a 59-year-old female with history of CVA with debility, aphasia, hypertension, seizure disorder as well as sacral decubitus ulcers. Most of history is from chart and per family. The patient is bedbound. The patient reportedly had surgery for a question of gallstone ileus years ago for biliary rerouting surgery. The patient brought in with distress with abdominal pain. The patient had had multiple episodes of nausea, vomiting over the last 3 days. The patient subsequently came to Emergency Room where she had a CT scan raising the possibility of perforated viscus. Surgery was consulted, and after surgical consultation, GI was consulted. Again, most of her history is per chart. PAST MEDICAL HISTORY: 1. High cholesterol. 2. Seizure disorder. 3. Stroke. 4. Expressive aphasia. 5. Hypertension. 6. Sacral decubitus. MEDICATIONS: Reviewed and updated in chart. ALLERGIES: No known drug allergies. SOCIAL HISTORY: No alcohol, tobacco or drug abuse. FAMILY HISTORY: Negative for colon cancer. REVIEW OF SYSTEMS: GENERAL: Some weakness. HEENT: No visual complaints. PULMONARY: No shortness of breath. No cough. No chest pain. GASTROINTESTINAL: Reports abdominal pain with nausea. All points of 13-point review of systems otherwise negative. PHYSICAL EXAMINATION: VITAL SIGNS: Temperature of 97.9, pulse 60, respirations 18, blood pressure 161/83. GENERAL: Fairly thin female, in no acute distress. HEENT: Pupils equal, round and reactive. PULMONARY: Clear. CARDIOVASCULAR: Regular rhythm. Normal S1, S2. ABDOMEN: Positive bowel sounds, slightly firm. No guarding, no rebound. SKIN: No obvious rashes. LABORATORY DATA: Pertinent for white count of 4.2, hemoglobin and hematocrit of 9.7 and 29.6, platelet count of 115. Coags within normal limits. Chem-7 within normal limits. LFTs within normal limits. CT scan of abdomen and pelvis without contrast on 03/08/2020 showed pneumatosis intestinalis involving the ascending, proximal transverse colon areas as well as likely to the cecum. There was also noted to be free air in region of hepatic flexure. ASSESSMENT: A 59-year-old female with reported complicated surgical history where there was a question of whether or not she may have had a choledocho-enteric fistula or gallstone ileus in the past, now presents with abdominal pain, nausea, vomiting with CT scan raising the possibility of pneumatosis of the ascending and proximal colon as well as the cecum with a question of free air. It should also be noted that there is air in the bile duct. The patient's pneumatosis intestinalis and free air for the most part are surgically managed issue. The patient does have some air in the bile duct and this may indicate a possibility of passage of a recent stone, but with that said, there is no indication for ERCP at this time. ERCP in itself though given previous surgery will be very difficult and would be better performed at tertiary center. As to the pneumo-intestinalis and free air, these are more surgical issues. PLAN: 1. IV antibiotics as ordered for pneumatosis intestinalis. 2. CT scan was reviewed with Radiology with confirmation of free air as well as pneumatosis intestinalis. 3. N.p.o., NG tube if needed. 4. No role for ERCP or endoscopic evaluation in this situation. 5. Further management per surgery team. 6. Agree with MRCP and we will follow results. 7. We will sign off, call if needed. JOB# [id number] CAB/NTS
[2020-03-10] MEDS: D5W/0.45% NACL 1,000 ML IV SCH ×2 (03:46→17:56)
[2020-03-10 04:58] LABS: Hemoglobin 10.8 gm/dl (10.1-14.3)
[2020-03-10 05:18] LABS: Blood Urea Nitrogen 11 mg/dL (7-17); Calcium 7.6 mg/dL (8.4-10.2); Hemolysis Index 19
[2020-03-10 05:32] LABS: BUN/Creatinine Ratio 18
--- NOTE | 2020-03-10 09:23 | Event Note ---
Date: 03/10/[address] Lugo (RADS), CT findings demonstrate findings consistent with SMA syndrome (angle at takeoff of SMA from aorta less than 37 degrees, we believe it is in the 24 degree range, evidence of cholecystoduodenal fistula, pneumobilia,extensive pneumotosis of asc colon, hepatic flexure and proximal transverse colon, small/ tiny amount of free/extraluminal air in jere hepatis, very complex case, patient is afebrile,hemodyn stable, WBC normal, does not appear toxic , but does appear quite malnourished and chronically ill, her WBC and renal function, and LFTs are all normal. I still have not been able to obtain the medical records from her . I will attempt to contact [facility] again and effect transfer, this case is extremely complex and above my comfort level to operate on, she clearly needs transfer to a tertiary medical center.
--- NOTE | 2020-03-10 09:48 | Ultrasound Report ---
ULTRASOUND ABDOMEN, LIMITED (RIGHT UPPER QUADRANT) INDICATION / CLINICAL INFORMATION: cholecystoenteric fistula,gallstones. COMPARISON: Prior CT abdomen and pelvis dated 03/09/2020. FINDINGS: PANCREAS: Visualized portion shows no significant abnormality. LIVER: No focal lesions. GALLBLADDER: Minimally thickened gallbladder wall measures 3.2 mm however this is likely due to its i ncomplete distention. Linear echogenic foci could represent the mucosa of the gallbladder wall versus air. BILE DUCTS: Mild intrahepatic pneumobilia. Common bile duct measures 5 mm. FREE FLUID: None. ADDITIONAL FINDINGS: Mild pneumoperitoneum. IMPRESSION: 1. The gallbladder is incompletely distended likely contributing to its minimally thickened gallbladd er wall. Linear echogenic foci within the contracted gallbladder lumen likely represent intraluminal air as seen on recent CT abdomen and pelvis. 2. Mild pneumobilia. 3. Pneumoperitoneum. Signer Name: Jhony Palacios MD Signed: 03/10/2020 9:44 AM Workstation Name: [id number]
[2020-03-10] MEDS: POTASSIUM CHLORIDE 10 MEQ 10 MEQ/100 ML BAG IV SCH ×3 (10:18→12:35)
[2020-03-10] MEDS: levETIRAcetam 500 MG in DEXTROSE 5% IN WATER 100 ML IV SCH ×2 (10:19→22:21)
[2020-03-10] MEDS ORDERED: VANCOMYCIN PHARMACY TO DOSE IV SCH (11:00)
[2020-03-10] MEDS: VANCOMYCIN 750 MG in SODIUM CHLORIDE 0.9% 250ML 250 ML IV SCH ×2 (11:01→22:27)
--- NOTE | 2020-03-10 11:22 | Gastroenterology Progress Note ---
Assessment and Plan 1. GI: pt w/ pneumatosis w/ free air - surgery input from today noted - agree will most likely need surgical intervention, per surgery - continue IV antibiotics - no plans GI intervention, further management per surgery, will sign off, call if needed Subjective Date of service: 03/10/20 Interval history: - no changes overnight Objective - Constitutional Vitals: Temp Pulse Resp BP Pulse Ox 98.8 F 46 L 11 L 147/81 98 03/10/20 03:49 03/10/20 06:30 03/10/20 06:30 03/10/20 06:30 03/10/20 06:30 General appearance: no acute distress - EENT Eyes: PERRL - Respiratory Respiratory: bilateral: CTA - Cardiovascular Rhythm: regular Heart Sounds: Present: S1 & S2 - Gastrointestinal General gastrointestinal: Present: soft, non-tender - Labs CBC & Chem 7: 03/10/20 03:33 03/10/20 03:33 Labs: Laboratory Results - last 24 hr 03/09/20 03/09/20 03/09/20 04:13 18:30 20:45 Hgb 10.4 Hct 31.5 Sodium Potassium Chloride Carbon Dioxide Anion Gap BUN Creatinine Estimated GFR BUN/Creatinine Ratio Glucose POC Glucose Hemoglobin A1c 5.1 Calcium Nasal Screen MRSA (PCR) Blood Type B POSITIVE Antibody Screen Negative 03/09/20 03/09/20 03/10/20 23:51 Unknown 03:33 Hgb Hct Sodium 138 Potassium 3.4 L Chloride 101.5 Carbon Dioxide 28 Anion Gap 12 BUN 11 Creatinine 0.6 Estimated GFR > 60 BUN/Creatinine Ratio 18 Glucose 97 POC Glucose 93 Hemoglobin A1c Calcium 7.6 L Nasal Screen MRSA (PCR) Negative Blood Type Antibody Screen 03/10/20 03/10/20 03:33 05:53 Hgb 10.8 Hct 32.0 Sodium Potassium Chloride Carbon Dioxide Anion Gap BUN Creatinine Estimated GFR BUN/Creatinine Ratio Glucose POC Glucose 101 Hemoglobin A1c Calcium Nasal Screen MRSA (PCR) Blood Type Antibody Screen
--- NOTE | 2020-03-10 12:18 | Consultation ---
History of Present Illness - Reason for Consult Consult date: 03/10/20 Superior Mesenteric Artery Syndrome Requesting physician: DIANA FINK - History of Present Illness The patient has a history of stroke and is therefore unable to provide much history so the history is obtained from the chart. The patient's previous history of stroke left her with dysphagia. She presented to the emergency department with complaints of 2 weeks of nausea and vomiting. Her work-up included a CT scan of her abdomen and pelvis which demonstrated pneumatosis intestinalis with minimal free air. She had no complaints of abdominal pain or signs of acute abdomen. There was a suggestion of superior mesenteric artery syndrome. She eventually had a CTA of her abdomen and pelvis which confirmed the finding of an acute angle of the superior mesenteric artery suggesting supe rior mesenteric artery syndrome. There was no evidence of occlusion of the mesenteric vessels. The CTA also demonstrated pneumatosis intestinalis with a minimal amount of free air. There is no portal venous air identified. The patient denies abdominal pain and has no additional complaints at this time. Past History Past Medical History: hyperlipidemia, seizures, stroke, other (See HPI) Past Surgical History: No surgical history (patient had what sounds like a cholecyto or choledochenteric fistula or gallstone illeus? is not sure. this occured 3 years ago at [facility]/ surgeon only removed gallstone.), Other (Reviewed) Social history: , lives with family. denies: smoking, alcohol abuse, prescription drug abuse Family history: hypertension Medications and Allergies Allergies Allergy/AdvReac Type Severity Reaction Status Date / Time No Known Allergies Allergy Verified 03/08/20 15:23 Home Medications Medication Instructions Recorded Confirmed Last Taken Type Aspirin EC [Ecotrin] 325 mg PO QDAY #30 tablet 10/08/19 03/08/20 Unknown Rx AtorvaSTATin [Lipitor] 40 mg PO QHS #30 tablet 10/08/19 03/08/20 Unknown Rx levETIRAcetam [Keppra] 500 mg PO BID #60 oral.liqd 11/24/19 03/08/20 Unknown Rx Acetaminophen [Acetaminophen TAB] 650 mg PO Q4H PRN tablet 02/19/20 03/08/20 Unknown Rx Aspirin 325 mg PO QDAY tablet 02/19/20 03/08/20 Unknown Rx AtorvaSTATin [Lipitor] 40 mg PO QHS tablet 02/19/20 03/08/20 Unknown Rx Metoprolol Xl [Metoprolol 100 mg PO QDAY #30 tablet 02/19/20 03/08/20 Unknown Rx SUCCINATE ER TAB] amLODIPine 10 mg PO DAILY #30 tablet 02/19/20 03/08/20 Unknown Rx bisacodyL [Dulcolax suppos] 10 mg NH QDAY PRN supp.rect 02/19/20 03/08/20 Unknown Rx levETIRAcetam [Keppra TAB] 500 mg PO BID tablet 02/19/20 03/08/20 Unknown Rx lisinopriL [Zestril TAB] 40 mg PO QDAY #30 tablet 02/19/20 03/08/20 Unknown Rx Active Meds: Active Medications Dextrose (D50w (25gm) Syringe) 50 ml IV Q30MIN PRN; Protocol PRN Reason: Hypoglycemia Dextrose/Sodium Chloride (D5/0.45ns) 1,000 mls @ 100 mls/hr IV DIRECT SHAWN Last Admin: 03/10/20 03:46 Dose: 100 mls/hr Documented by: Levetiracetam 500 mg/ Dextrose 105 mls @ 400 mls/hr IV Q12HR SHAWN Last Admin: 03/10/20 10:19 Dose: 400 mls/hr Documented by: Piperacillin Sod/Tazobactam Sod (Zosyn/Ns 3.375gm/50ml) 3.375 gm in 50 mls @ 100 mls/hr IV Q6HR SHAWN; Protocol Vancomycin HCl 750 mg/ Sodium (Chloride) 265 mls @ 166.667 mls/hr IV Q12HR SHAWN Last Admin: 03/10/20 11:01 Dose: 166.667 mls/hr Documented by: Insulin Human Regular (Humulin R) 0 unit SUB-Q Q6HR SHAWN; Protocol Last Admin: 03/10/20 00:08 Dose: Not Given Documented by: Labetalol HCl (Labetalol) 10 mg IV Q4H PRN PRN Reason: Hypertension Sodium Chloride (Sodium Chloride Flush Syringe 10 Ml) 10 ml IV BID SHAWN Last Admin: 03/10/20 10:19 Dose: 10 ml Documented by: Sodium Chloride (Sodium Chloride Flush Syringe 10 Ml) 10 ml IV PRN PRN PRN Reason: LINE FLUSH Exam - Constitutional Vitals: Temp Pulse Resp BP Pulse Ox 98.8 F 46 L 11 L 147/81 98 03/10/20 03:49 03/10/20 06:30 03/10/20 06:30 03/10/20 06:30 03/10/20 06:30 General appearance: Present: no acute distress, cachectic - Respiratory Respiratory effort: normal - Cardiovascular Heart rate: 53 Rhythm: regular - Extremities Extremities: normal temperature - Abdominal General gastrointestinal: Present: soft, non-tender, non-distended Female genitourinary: Present: deferred - Rectal Rectal Exam: deferred Results - Labs CBC & Chem 7: 03/10/20 03:33 03/10/20 03:33 Labs: Abnormal lab results 03/10/20 Range/Units 03:33 Potassium 3.4 L (3.6-5.0) mmol/L Calcium 7.6 L (8.4-10.2) mg/dL - Imaging and Cardiology CT scan - abdomen: image reviewed US - abdomen: image reviewed Assessment and Plan The patient is a 59-year-old female with a history of stroke resulting in dysphagia and right side weakness. She presented to the emergency department with a complaint of 2 weeks of nausea and vomiting and her work-up revealed superior mesenteric artery syndrome along with pneumatosis intestinalis and a minimal amount of free air. Typically superior mesenteric artery syndrome is managed conservatively as it is usually due to the loss of mesenteric fat between the SMA and aorta. Conservative management would consist of gastric decompression and correction of the electrolytes if needed as well as reversal of the patient's weight loss. The patient also has the findings of pneumatosis intestinalis which would not be secondary to her superior mesenteric artery syndrome. At this time the patient has no leukocytosis, lactic acidosis, or tyra dence of peritonitis. She has a small amount of free air however she has no portal venous gas. Her physical exam is benign. I would not recommend surgical intervention unless 1 of these things were to change. Would recommend continued antibiotics and possible elemental diet with follow-up abdominal films and to the pneumatosis intestinalis resolves.
[2020-03-10] MEDS: DEXTROSE 50% IN WATER (25GM) 50 ML SYRINGE IV PRN ×2 (13:20→18:03)
--- NOTE | 2020-03-10 13:35 | Progress Note ---
Assessment and Plan Abnormal CT abdomen and pelvis -From my evaluation , she appears chronically ill and 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 She clincally does not appear to have anand perforation or any symptoms or signs suggestive of peritonitis. I have discussed this with the surgeon and hospitalist service. She needs a CTA of feli abdomen and pelvis and NGT to LIS to decompress the stomach. She is to be kept NPO for -GI has been consulted by the primary service -MRCP and ARUQ USS has been ordered by General Surgery. -Patient's is to bring in her old records for review. -Of note she has pancytopenia,which needs to be closely monitored and may need further work up if persistent. -Will continue to monitor her in the IMCU -Based on diagnostic testing and findings, may need transfer to tertiary center for ongoing care -All other care per primary service Protein-calorie malnutrition, severe Acute encephalopathy Hypokalemia Cerebral infarction due to thrombosis of cerebral artery Seizure disorder Hypertension Subjective Date of service: 03/10/20 Interval history: Patient is seen today for: Seen and examined at bedside; 24hour events reviewed; nursing and respiratory care staff consulted; no adverse overnight events reported to me; Objective Vital Signs - 12hr 03/10/20 03/10/20 03/10/20 02:00 02:30 03:00 Temperature Pulse Rate 48 L 55 L 50 L Pulse Rate [ From Monitor] Respiratory 12 11 L 15 Rate Blood Pressure 146/74 156/94 109/71 O2 Sat by Pulse 100 99 100 Oximetry 03/10/20 03/10/20 03/10/20 03:30 03:49 04:00 Temperature 98.8 F Pulse Rate 46 L 47 L Pulse Rate [ 49 L From Monitor] Respiratory 16 12 Rate Blood Pressure 146/80 141/81 O2 Sat by Pulse 100 98 Oximetry 03/10/20 03/10/20 03/10/20 04:30 05:00 05:30 Temperature Pulse Rate 50 L 47 L 49 L Pulse Rate [ From Monitor] Respiratory 16 12 11 L Rate Blood Pressure 126/73 119/70 124/71 O2 Sat by Pulse 100 100 100 Oximetry 03/10/20 03/10/20 06:00 06:30 Temperature Pulse Rate 55 L 46 L Pulse Rate [ From Monitor] Respiratory 7 L 11 L Rate Blood Pressure 124/71 147/81 O2 Sat by Pulse 98 Oximetry Constitutional: no acute distress, other (chronically ill looking, lanugo hair, temporal wasting) Eyes: non-icteric ENT: oropharynx dry Neck: supple, no lymphadenopathy, no JVD Effort: normal Ascultation: Bilateral: clear, diminished breath sounds Cardiovascular: regular rate and rhythm, other (S1,S2) Gastrointestinal: normoactive bowel sounds, soft, non-tender, non-distended Integumentary: normal Extremities: no cyanosis, no edema, pink and warm, pulses normal Neurologic: pupils equal and round, CN II-XII normal, other (dysarthria) Psychiatric: affect normal CBC and BMP: 03/10/20 03:33 03/10/20 03:33 ABG, PT/INR, D-dimer: PT/INR, D-dimer PT 14.6 Sec. (12.2-14.9) 03/08/20 19:17 INR 1.13 (0.87-1.13) 03/08/20 19:17 Abnormal lab findings: Abnormal Labs 03/08/20 03/08/20 03/08/20 16:10 16:10 16:44 WBC 2.7 L RBC Hgb 15.6 H Hct 47.3 H RDW 15.5 H Plt Count 108 L Lymph % (Auto) 10.5 L Lymph # (Auto) 0.3 L Seg Neutrophils % 82.9 H APTT Sodium 147 H Potassium Carbon Dioxide 32 H Glucose Calcium ALT Total Creatine Kinase 27 L Albumin 3.3 L Urine WBC (Auto) 03/08/20 03/08/20 03/09/20 19:17 21:39 04:13 WBC 4.2 L RBC 3.07 L Hgb 9.7 L D Hct 29.6 L D RDW 15.3 H Plt Count 115 L Lymph % (Auto) 8.7 L Lymph # (Auto) 0.4 L Seg Neutrophils % 73.9 H APTT 23.7 L Sodium Potassium Carbon Dioxide Glucose Calcium ALT Total Creatine Kinase Albumin Urine WBC (Auto) 15.0 H 03/09/20 03/10/20 04:13 03:33 WBC RBC Hgb Hct RDW Plt Count Lymph % (Auto) Lymph # (Auto) Seg Neutrophils % APTT Sodium Potassium 3.2 L 3.4 L Carbon Dioxide 32 H Glucose 105 H Calcium 7.9 L 7.6 L ALT 6 L Total Creatine Kinase Albumin 2.5 L Urine WBC (Auto)
--- NOTE | 2020-03-10 14:12 | Discharge Summary ---
<FERNANDA JON - Last Filed: 03/14/20 06:01> Providers - Providers Date of Admission: 03/08/20 19:14 Date of discharge: 03/13/20 Attending physician: FERNANDA JON 03/08/20 18:18 Consult to Physician [CONS] Urgent Comment: Consulting Provider: DIANA FINK Physician Instructions: Reason For Exam: perf viscus 03/08/20 20:43 Speech Therapy Evaluation and Treat [CONS] Urgent Reason For Exam: evaluate for choledochoenteric fistula 03/09/20 08:39 Consult to Physician [CONS] Routine Comment: called office/ denis Consulting Provider: JAZIEL CARSON Physician Instructions: Reason For Exam: bowel perf 03/09/20 14:01 Midline [Consult to PICC Line RN] [CONS] Routine Reason For Exam: IV access Type Line:: Midline 03/09/20 15:49 Consult to Physician [CONS] Urgent Comment: dr ruiz is aware/ denis Consulting Provider: ELDA RUIZ Physician Instructions: Reason For Exam: critical care managment 03/09/20 17:32 Consult to Physician [CONS] Routine Comment: Consulting Provider: FINN WADE Physician Instructions: evaluate for SMA syndrome Reason For Exam: sma syndrome? 03/11/20 11:29 Consult to Dietitian/Nutrition [CONS] Routine Physician Instructions: Reason For Exam: Reason for Consult: Write/Manage TPN/PPN Primary care physician: ANTIQUE DEALER Hospitalization Condition: Serious Hospital course: I saw and evaluated the patient. I agree with the findings and the plan of care as documented in the Nurse Practitioner's~note, Disposition: DC/TX-70 ANOTHER TYPE HLTHCARE Exam - Constitutional Vitals: Temp Pulse Resp BP Pulse Ox 98.3 F 83 20 177/110 100 03/13/20 07:30 03/13/20 07:30 03/13/20 07:30 03/13/20 07:30 03/13/20 07:30 Plan Follow up with: PRIMARY CARE, [Primary Care Provider] - 7 Days <DONTE RENEE - Last Filed: 03/16/20 07:31> Providers - Providers Date of Admission: 03/08/20 19:14 Attending physician: FERNANDA JON 03/08/20 18:18 Consult to Physician [CONS] Urgent Comment: Consulting Provider: DIANA FINK Physician Instructions: Reason For Exam: perf viscus 03/08/20 20:43 Speech Therapy Evaluation and Treat [CONS] Urgent Reason For Exam: evaluate for choledochoenteric fistula 03/09/20 08:39 Consult to Physician [CONS] Routine Comment: called office/ denis Consulting Provider: JAZIEL CARSON Physician Instructions: Reason For Exam: bowel perf 03/09/20 14:01 Midline [Consult to PICC Line RN] [CONS] Routine Reason For Exam: IV access Type Line:: Midline 03/09/20 15:49 Consult to Physician [CONS] Urgent Comment: dr ruiz is aware/ denis Consulting Provider: ELDA RUIZ Physician Instructions: Reason For Exam: critical care managment 03/09/20 17:32 Consult to Physician [CONS] Routine Comment: Consulting Provider: FINN WADE Physician Instructions: evaluate for SMA syndrome Reason For Exam: sma syndrome? Primary care physician: ANTIQUE DEALER Hospitalization Hospital course: 59 YO Female with CVA complicated by Debility, Expressive Aphasia, HTN, Seizure Disorder, HLD, Sacral Decubitus Ulcer severe malnutrition presents to ED for 3 days of vomiting prior to arrival on 03/08 and found to be in distress by home health nurse and EMS. CT scan of the abdomen and pelvis revealed perforated viscus. Surgical team consulted in the emergency department. Surgery recommend for transfer to [place] however was unable to get in contact with a surgeon there and ordered a abd US for evaluation. On 03/08 she was hypokalemic, and has a marked decrease in her h/h therefore a stat occult and type & cross was ordered and her home Keppra was changed to IV. 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 An abdominal ultrasound shows an incompletely distended gallbladder and intraluminal air with mild pneumobilia, and pneumoperitoneum. GI and vascular surgery were consulted. GI and surgery both recommend surgical intervention however vascular surgery recommends conservative treatment with IV antibiotics, TPN and follow-up abdominal films. Patient will be transferred to [facility]. 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 Associated with bowel perforation with the majority of air in the upper abdomen suggesting perforation of the region of the hepatic flexure and mild bibasilar emphysema with mild left basilar atelectasis, a small to moderate pericardial effusion and calcifications in the region of the pancreas possibly representing chronic pancreatitis 03/09 CT angio abdomen/pelvis shows mild to moderate atherosclerotic disease in the abdominal aortoiliac arteries and mesenteric arteries with no mesenteric stenosis or occlusion, and narrowing between the superior mesenteric artery and aorta with mass-effect on the transverse/distal duodenum which 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 03/10 abdominal ultrasound shows an incompletely distended gallbladder with minimally thickened gallbladder wall, linear echogenic foci within the contracted gallbladder lumen likely representing intraluminal air as seen on recent CT abdomen and pelvis, mild pneumobilia and pneumoperitoneum Surgery consulted: Attempted to transfer the patient to [place] however was unable to on 03/08, Possible SMA syndrome vs gallstone illeus and perhaps a cholecysto vs choledochoenteric fistula NPO, IVF Trend CBC Trend CMP IV Zosyn 03/08 BC grew out gram-positive cocci in clusters and pairs, initiated on vancomycin with PKS to dose; Vanco stopped d/t both culture sets growing couag negative staph NG tube to LIS 03/09 GI consulted per surgery request; agree with obtaining MRCP however also agrees with transfer to [place] -03/11 abd xr: colonic pneumatosis, especially along the right mid abdomen has not significantly changed from 03/09/2020. (2) Acute encephalopathy Current Visit: No Status: Acute Plan to address problem: Supportive care Reorientation as needed Correct metabolic derangements Fall and aspiration precautions (3) Hypokalemia Current Visit: No Status: resolved Plan to address problem: 03/09 potassium 3.2, repleted with 40 mEq IV KCl Trend BMP Replete as needed 03/10 potassium 3.4, repleted with 10 mEq IV KCl -03/11 K 3.2, repleted, 03/12 3.5 -03/13 K 4.6 (4) UTI (urinary tract infection) Current Visit: Yes Status: Acute Plan to address problem: 03/08 UA shows small LE, positive for nitrates and pyuria 03/08 urine culture with mixed andreina, probable contamination IV antibiotic therapy Trend CBC (5) 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 intake when able; statin, aspirin, anti-hypertensive regimen (6) Seizure disorder Current Visit: No Status: Chronic Plan to address problem: Seizure precautions Supportive [facility] Keppra 500 mg p.o. twice daily changed to IV 500 mg twice daily while n.p.o. (7) Hypertension Current Visit: No Status: Chronic Plan to address problem: Blood pressure monitor per protocol Resume home antihypertensive regimen when not n.p.o. IV labetalol as needed for SBP greater than 160 (8) Protein-calorie malnutrition, severe Current Visit: No Status: Chronic Plan to address problem: Supportive care Increase protein intake with dietary supplementation as tolerated postoperatively Nutrition consult -TPN (9) DVT prophylaxis Current Visit: No Status: Acute Plan to address problem: SCDs to bilateral lower extremities while in bed Time spent for discharge: 45 Core Measure Documentation - Palliative Care Palliative Care/ Comfort Measures: Not Applicable - Core Measures Any of the following diagnoses?: history only Exam - Constitutional Vitals: Temp Pulse Resp BP Pulse Ox 98.8 F 46 L 11 L 147/81 98 03/10/20 03:49 03/10/20 06:30 03/10/20 06:30 03/10/20 06:30 03/10/20 06:30 General appearance: Present: cachectic - EENT Eyes: Present: PERRL, EOM intact ENT: hearing decreased, poor dentition - Neck Neck: Present: supple, normal ROM - Respiratory Respiratory effort: normal Respiratory: bilateral: CTA - Cardiovascular Rhythm: regular Heart Sounds: Present: S1 & S2. Absent: systolic murmur, diastolic murmur - Extremities Extremities: no ischemia, pulses intact, pulses symmetrical, No edema, normal temperature, normal color Peripheral Pulses: within normal limits - Abdominal General gastrointestinal: Present: soft, non-tender, non-distended, normal bowel sounds - Integumentary Integumentary: Present: warm, dry - Musculoskeletal Musculoskeletal: generalized weakness - Psychiatric Psychiatric: cooperative - Neurologic Neurologic: CNII-XII intact, moves all extremities Plan Activity: fall precautions, other Diet: other Additional Instructions: Care is being transferred to [facility]
--- NOTE | 2020-03-10 15:46 | Event Note ---
Date: 03/10/[address] with [address] Dickey (General Surgeon) at [facility], he has refered me to [facility] to accept patient in transfer to [facility], I have spoken with the [facility] by phone and he has agreed to transfer patient on Friday , early next week, the patient will need to be transfered to the floor first before [facility] can accomadate transfer, also, all CTs and films and discharge summary will have to be sent with patient. The doctor informed that once all the appropriate treatment is completed at [facility] the [facility] will have to agree to ac cept patient back if a prolonged hospitalization is required.There is only a small chance that they will take her today, only if Gastroenterology feels the EGD/ scope has to be done emergently to evaluate cholecystoduodenal fistula/ this is very unlikely. For now please transfer patient to floor (she is very stable), continue NPO and iv antibiotics.
--- NOTE | 2020-03-10 17:08 | Progress Note ---
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 Associated with bowel perforation with the majority of air in the upper abdomen suggesting perforation of the region of the hepatic flexure and mild bibasilar emphysema with mild left basilar atelectasis, a small to moderate pericardial effusion and calcifications in the region of the pancreas possibly representing chronic pancreatitis 03/09 CT angio abdomen/pelvis shows mild to moderate atherosclerotic disease in the abdominal aortoiliac arteries and mesenteric arteries with no mesenteric stenosis or occlusion, and narrowing between the superior mesenteric artery and aorta with mass-effect on the transverse/distal duodenum which 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 03/10 abdominal ultrasound shows an incompletely distended gallbladder with minimally thickened gallbladder wall, linear echogenic foci within the contracted gallbladder lumen likely representing intraluminal air as seen on recent CT abdomen and pelvis, mild pneumobilia and pneumoperitoneum Surgery consulted: Attempted to transfer the patient to [place] however was unable to on 03/08, Possible SMA syndrome vs gallstone illeus and perhaps a cholecysto vs choledochoenteric fistula NPO, IVF Trend CBC Trend CMP IV Zosyn 03/08 BC grew out gram-positive cocci in clusters and pairs, initiated on vancomycin with PKS to dose NG tube to LIS 03/09 GI consulted per surgery request; agree with obtaining MRCP plan 03/10 GI signed off, wrote to continue antibiotics and NG tube to LIS and agreed with need for surgical intervention Vascular surgery consulted who recommends since there is no leukocytosis, lactic acidosis, or evidence of peritonitis given she has a small amount of free air however no portal venous gas and physical exam is benign. I would not recommend surgical intervention unless 1 of these things were to change. Would recommend continued antibiotics and possible elemental diet with follow-up abdominal films and to the pneumatosis intestinalis resolves. (2) Acute encephalopathy Current Visit: No Status: Acute Plan to address problem: Supportive care Reorientation as needed Correct metabolic derangements Fall and aspiration precautions (3) Hypokalemia Current Visit: No Status: Acute Plan to address problem: 03/09 potassium 3.2, repleted with 40 mEq IV KCl Trend BMP Replete as needed 03/10 potassium 3.4, repleted with 10 mEq IV KCl (4) UTI (urinary tract infection) Current Visit: Yes Status: Acute Plan to address problem: 03/08 UA shows small LE, positive for nitrates and pyuria 03/08 urine culture with mixed andreina, probable contamination IV antibiotic therapy Trend CBC (5) 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 intake when able; statin, aspirin, anti-hypertensive regimen (6) Seizure disorder Current Visit: No Status: Chronic Plan to address problem: Seizure precautions Supportive assisted Keppra 500 mg p.o. twice daily changed to IV 500 mg twice daily while n.p.o. (7) Hypertension Current Visit: No Status: Chronic Plan to address problem: Blood pressure monitor per protocol Resume home antihypertensive regimen when not n.p.o. IV labetalol as needed for SBP greater than 160 (8) Protein-calorie malnutrition, severe Current Visit: No Status: Chronic Plan to address problem: Supportive care Increase protein intake with dietary supplementation as tolerated postoperatively Nutrition consult (9) DVT prophylaxis Current Visit: No Status: Acute Plan to address problem: SCDs to bilateral lower extremities while in bed History Interval history: 59 YO Female with CVA complicated by Debility, Expressive Aphasia, HTN, Seizure Disorder, HLD, Sacral Decubitus Ulcer presents to ED for 3 days of vomiting prior to arrival on 03/08 and found to be in distress by home health nurse and EMS. CT scan of the abdomen and pelvis revealed perforated viscus. Surgical team consulted in the emergency department. Surgery recommend for transfer to [place] however was unable to get in contact with a surgeon there and ordered a abd US for evaluation. Today she is hypokalemic and that was repleted. Patient received further work-up for her possible SMA syndrome which included a CTA abdomen and abdominal ultrasound which still demonstrated the pneumoperitoneum, a narrowing between the SMA and aorta with mass-effect to the transverse and distal duodenum and pneumonitis intestinalis. The surgeon again attempted to transfer her over to [facility] Hospitalist Physical - Constitutional Vitals: Temp Pulse Resp BP Pulse Ox 97.6 F 57 L 11 L 130/80 100 03/10/20 16:00 03/10/20 17:00 03/10/20 17:00 03/10/20 17:00 03/10/20 17:00 General appearance: Present: cachectic Results - Labs CBC & Chem 7: 03/10/20 08:00 03/10/20 03:33 Labs: Laboratory Last Values WBC 4.2 K/mm3 (4.5-11.0) L 03/09/20 04:13 RBC 3.07 M/mm3 (3.65-5.03) L 03/09/20 04:13 Hgb 10.8 gm/dl (10.1-14.3) 03/10/20 03:33 Hct 32.0 % (30.3-42.9) 03/10/20 03:33 MCV 96 fl (79-97) 03/09/20 04:13 MCH 32 pg (28-32) 03/09/20 04:13 MCHC 33 % (30-34) 03/09/20 04:13 RDW 15.3 % (13.2-15.2) H 03/09/20 04:13 Plt Count 115 K/mm3 (140-440) L 03/09/20 04:13 Lymph % (Auto) 8.7 % (13.4-35.0) L 03/09/20 04:13 Whitman % (Auto) [place] 03/09/20 04:13 Eos % (Auto) 0.5 % (0.0-4.3) 03/09/20 04:13 Baso % (Auto) 0.2 % (0.0-1.8) 03/09/20 04:13 Lymph # (Auto) 0.4 K/mm3 (1.2-5.4) L 03/09/20 04:13 Whitman # (Auto) 0.7 K/mm3 (0.0-0.8) 03/09/20 04:13 Eos # (Auto) 0.0 K/mm3 (0.0-0.4) 03/09/20 04:13 Baso # (Auto) 0.0 K/mm3 (0.0-0.1) 03/09/20 04:13 Seg Neutrophils % 73.9 % (40.0-70.0) H 03/09/20 04:13 Seg Neutrophils # 3.1 K/mm3 (1.8-7.7) 03/09/20 04:13 PT 14.6 Sec. (12.2-14.9) 03/08/20 19:17 INR 1.13 (0.87-1.13) 03/08/20 19:17 APTT 23.7 Sec. (24.2-36.6) L 03/08/20 19:17 Sodium 138 mmol/L (137-145) 03/10/20 03:33 Potassium 3.4 mmol/L (3.6-5.0) L 03/10/20 03:33 Chloride 101.5 mmol/L (98-107) 03/10/20 03:33 Carbon Dioxide 28 mmol/L (22-30) 03/10/20 03:33 Anion Gap 12 mmol/L 03/10/20 03:33 BUN 11 mg/dL (7-17) 03/10/20 03:33 Creatinine 0.6 mg/dL (0.6-1.2) 03/10/20 03:33 Estimated GFR > 60 ml/min 03/10/20 03:33 BUN/Creatinine Ratio 18 % 03/10/20 03:33 Glucose 97 mg/dL (65-100) 03/10/20 03:33 POC Glucose 72 mg/dL (70-105) 03/10/20 12:21 Hemoglobin A1c 5.1 % (4-6) 03/09/20 04:13 Lactic Acid 0.90 mmol/L (0.7-2.0) 03/08/20 21:40 Calcium 7.6 mg/dL (8.4-10.2) L 03/10/20 03:33 Magnesium 2.00 mg/dL (1.7-2.3) 03/08/20 16:44 Total Bilirubin 0.30 mg/dL (0.1-1.2) 03/09/20 04:13 AST 15 units/L (5-40) 03/09/20 04:13 ALT 6 units/L (7-56) L 03/09/20 04:13 Alkaline Phosphatase 75 units/L (35-129) 03/09/20 04:13 Total Creatine Kinase 27 units/L (30-135) L 03/08/20 16:44 Total Protein 6.7 g/dL (6.3-8.2) 03/09/20 04:13 Albumin 2.5 g/dL (3.9-5) L 03/09/20 04:13 Albumin/Globulin Ratio 0.6 % 03/09/20 04:13 Urine Color Rosangela (Yellow) 03/08/20 21:39 Urine Turbidity Cloudy (Clear) 03/08/20 21:39 Urine pH 5.0 (5.0-7.0) 03/08/20 21:39 Ur Specific [place] 1.029 (1.003-1.030) 03/08/20 21:39 Urine Protein >500 mg/dL (Negative) 03/08/20 21:39 Urine Glucose (UA) Neg mg/dL (Negative) 03/08/20 21:39 Urine Ketones 20 mg/dL (Negative) 03/08/20 21:39 Urine Blood Mod (Negative) 03/08/20 21:39 Urine Nitrite Pos (Negative) 03/08/20 21:39 Urine Bilirubin Neg (Negative) 03/08/20 21:39 Urine Urobilinogen < 2.0 mg/dL (<2.0) 03/08/20 21:39 Ur Leukocyte Esterase Sm (Negative) 03/08/20 21:39 Urine WBC (Auto) 15.0 /HPF (0.0-6.0) H 03/08/20 21:39 Urine RBC (Auto) 11.0 /HPF (0.0-6.0) 03/08/20 21:39 U Epithel Cells (Auto) 8.0 /HPF (0-13.0) 03/08/20 21:39 Urine Bacteria (Auto) 4+ /HPF (Negative) 03/08/20 21:39 Urine Mucus 3+ /HPF 03/08/20 21:39 Nasal Screen MRSA (PCR) Negative (Negative) 03/09/20 Unknown Blood Type B POSITIVE 03/09/20 18:30 Antibody Screen Negative 03/09/20 18:30 Microbiology: Microbiology 03/08/20 21:39 Urine,Clean Catch Urine Culture - Preliminary 03/08/20 19:50 Peripheral/Venous Blood Culture - Preliminary 03/08/20 19:50 Peripheral/Venous Blood Culture - Preliminary Sharif/IV: Voiding Method External Female Catheter IV Catheter Type [Right Upper Mid-line arm] IV Catheter Type [Left Forearm INT / Saline Lock ] Active Medications - Current Medications Current Medications: Generic Name Dose Route Start Last Admin Trade Name Freq PRN Reason Stop Dose Admin Dextrose 50 ml 03/09/20 09:00 03/10/20 13:20 D50w (25gm) Syringe IV 10 ml Q30MIN PRN Administration Hypoglycemia Protocol Dextrose/Sodium Chloride 1,000 mls @ 100 mls/hr 03/08/20 21:00 03/10/20 03:46 D5/0.45ns IV 100 mls/hr DIRECT SHAWN Administration Levetiracetam 500 mg/ Dextrose 105 mls @ 400 mls/hr 03/09/20 10:00 03/10/20 10:19 IV 400 mls/hr Q12HR SHAWN Administration Piperacillin Sod/Tazobactam Sod 3.375 gm in 50 mls @ 100 mls/hr 03/10/20 12:00 03/10/20 12:44 Zosyn/Ns 3.375gm/50ml IV 100 mls/hr Q6HR SHAWN Administration Protocol Vancomycin HCl 750 mg/ Sodium 265 mls @ 166.667 mls/hr 03/10/20 10:30 03/10/20 11:01 Chloride IV 166.667 mls/hr Q12HR SHAWN Administration Insulin Human Regular 0 unit 03/09/20 09:30 03/10/20 12:36 Humulin R SUB-Q Not Given Q6HR SHAWN Protocol Labetalol HCl 10 mg 03/09/20 14:17 Labetalol IV Q4H PRN Hypertension Sodium Chloride 10 ml 03/08/20 22:00 03/10/20 10:19 Sodium Chloride Flush Syringe 10 Ml IV 10 ml BID SHAWN Administration Sodium Chloride 10 ml 03/08/20 19:14 Sodium Chloride Flush Syringe 10 Ml IV PRN PRN LINE FLUSH Nutrition/Malnutrition Assess - Dietary Evaluation Nutrition/Malnutrition Findings: Nutrition Notes Start: 03/09/20 12:52 Freq: Status: Active Protocol: Document 03/10/20 12:22 PHIL (Rec: 03/10/20 12:49 PHIL [id number]) Co-Sign 03/10/20 12:22 LP Nutrition Notes Initial or Follow up Reassessment Current Diagnosis Hypertension,Stroke Other Pertinent Diagnosis Bowel perforation, PMH: dysphagia, stroke with R side deficits, seizures Current Diet NPO Labs/Tests K 3.4 Pertinent Medications D5 1/2NS 100ml/hr KCl 30 mEq Height 5 ft 5 in Weight 36.6 kg [place] Body Weight (kg) 56.81 BMI 13.4 Intake Prior to Admission Poor Weight Status Emaciated Subjective/Other Information F/u nutrition support. Received verbal confirmation from Dr. Tamayo at 1258. Due to pt's emaciation and availablity peripheral line, PPN can be initiated. Noted updated medical diagnosis and GI consult pending. Burn Absent Trauma Absent GI Symptoms Other Current % PO Negligible Minimum of two criteria Yes Energy Intake (severe) < or equal to 50% Estimated Energy Requirement > or equal to 5 days Body Fat Depletion Moderate depletion (severe) Muscle Mass Moderate Depletion (severe) Fluid Accumulation Mild (non-severe) #2 Nutrition Diagnosis Altered GI function Etiology superior mesenteric artery syndrome As Evidenced by Signs and Symptoms MD reports superior mesenteric artery syndrome, NGT placed for LIS, and pt NPO. #1 Nutrition Diagnosis Malnutrition Diagnosis Progress(for reassessment Continues documentation) Is patient on ventilator? No Is Patient Ambulatory and/or Out of Bed No REE-([facility]-confined to bed) 1135.476 Kcal/Kg value to use for calculation 40 Approximate Energy Requirements Using 1464 kcal/Kg Calculation Used for Recommendations Kcal/kg Additional Notes Protein 1.2-1.5g/k-56g Fluid: 1ml/kcal Nutrition Intervention Change Diet Order: Recommend peripheral parenteral nutrition cristian Nutrition Support: For tomorrow, pending lab value: Peripheral Parenteral Nutrition at 84ml/hr. Osmolarity 835. amino acids 2.8% dextrose 6.0% Na 150 mEq K 80 mEq Mg 16 mEq Ca 10 mEq Phos 20mmol Cl/Acetate 50/50 Protein (gm) 56 Carbohydrates (gm) 120 Fat (gm) 0 Fluid (mL) 2,016 Fiber (gm) 0 Goal #1 Pt receives nutrition support Goal #2 Pt tolerates parental nutrition Anticipated Discharge Needs: unable to determine at this time Follow-Up By: 03/11/20 Additional Comments F/u nutrition support <FERNANDA JON R - Last Filed: 03/11/20 11:29> Assessment and Plan Assessment and plan: I saw and evaluated the patient. I agree with the findings and the plan of care as documented in the Nurse Practitioner's~note, with the following corrections and additions. plan to transfer to [place] on Friday, cont current Mx and plan Hospitalist Physical - Constitutional Vitals: Temp Pulse Resp BP Pulse Ox 97.5 F L 52 L 10 L 150/85 100 03/11/20 08:00 03/11/20 09:00 03/11/20 09:00 03/11/20 09:00 03/11/20 09:00 Results - Labs CBC & Chem 7: 03/10/20 08:00 03/11/20 05:35 Labs: Laboratory Last Values WBC 4.2 K/mm3 (4.5-11.0) L 03/09/20 04:13 RBC 3.07 M/mm3 (3.65-5.03) L 03/09/20 04:13 Hgb 11.7 gm/dl (10.1-14.3) 03/10/20 08:00 Hct 34.9 % (30.3-42.9) 03/10/20 08:00 MCV 96 fl (79-97) 03/09/20 04:13 MCH 32 pg (28-32) 03/09/20 04:13 MCHC 33 % (30-34) 03/09/20 04:13 RDW 15.3 % (13.2-15.2) H 03/09/20 04:13 Plt Count 115 K/mm3 (140-440) L 03/09/20 04:13 Lymph % (Auto) 8.7 % (13.4-35.0) L 03/09/20 04:13 Whitman % (Auto) [place]man 03/09/20 04:13 Eos % (Auto) 0.5 % (0.0-4.3) 03/09/20 04:13 Baso % (Auto) 0.2 % (0.0-1.8) 03/09/20 04:13 Lymph # (Auto) 0.4 K/mm3 (1.2-5.4) L 03/09/20 04:13 Whitman # (Auto) 0.7 K/mm3 (0.0-0.8) 03/09/20 04:13 Eos # (Auto) 0.0 K/mm3 (0.0-0.4) 03/09/20 04:13 Baso # (Auto) 0.0 K/mm3 (0.0-0.1) 03/09/20 04:13 Seg Neutrophils % 73.9 % (40.0-70.0) H 03/09/20 04:13 Seg Neutrophils # 3.1 K/mm3 (1.8-7.7) 03/09/20 04:13 PT 14.6 Sec. (12.2-14.9) 03/08/20 19:17 INR 1.13 (0.87-1.13) 03/08/20 19:17 APTT 23.7 Sec. (24.2-36.6) L 03/08/20 19:17 Sodium 138 mmol/L (137-145) 03/11/20 05:35 Potassium 3.2 mmol/L (3.6-5.0) L 03/11/20 05:35 Chloride 103.9 mmol/L (98-107) 03/11/20 05:35 Carbon Dioxide 24 mmol/L (22-30) 03/11/20 05:35 Anion Gap 13 mmol/L 03/11/20 05:35 BUN 7 mg/dL (7-17) 03/11/20 05:35 Creatinine 0.5 mg/dL (0.6-1.2) L 03/11/20 05:35 Estimated GFR > 60 ml/min 03/11/20 05:35 BUN/Creatinine Ratio 14 % 03/11/20 05:35 Glucose 106 mg/dL (65-100) H 03/11/20 05:35 POC Glucose 102 mg/dL (70-105) 03/11/20 05:45 Hemoglobin A1c 5.1 % (4-6) 03/09/20 04:13 Lactic Acid 0.90 mmol/L (0.7-2.0) 03/08/20 21:40 Calcium 7.5 mg/dL (8.4-10.2) L 03/11/20 05:35 Phosphorus 2.30 mg/dL (2.5-4.5) L 03/11/20 05:35 Magnesium 1.50 mg/dL (1.7-2.3) L 03/11/20 05:35 Total Bilirubin 0.30 mg/dL (0.1-1.2) 03/11/20 05:35 AST 13 units/L (5-40) 03/11/20 05:35 ALT 6 units/L (7-56) L 03/11/20 05:35 Alkaline Phosphatase 59 units/L (35-129) 03/11/20 05:35 Total Creatine Kinase 27 units/L (30-135) L 03/08/20 16:44 Total Protein 5.5 g/dL (6.3-8.2) L 03/11/20 05:35 Albumin 2.1 g/dL (3.9-5) L 03/11/20 05:35 Albumin/Globulin Ratio 0.6 % 03/11/20 05:35 Urine Color Rosangela (Yellow) 03/08/20 21:39 Urine Turbidity Cloudy (Clear) 03/08/20 21:39 Urine pH 5.0 (5.0-7.0) 03/08/20 21:39 Ur Specific [place] 1.029 (1.003-1.030) 03/08/20 21:39 Urine Protein >500 mg/dL (Negative) 03/08/20 21:39 Urine Glucose (UA) Neg mg/dL (Negative) 03/08/20 21:39 Urine Ketones 20 mg/dL (Negative) 03/08/20 21:39 Urine Blood Mod (Negative) 03/08/20 21:39 Urine Nitrite Pos (Negative) 03/08/20 21:39 Urine Bilirubin Neg (Negative) 03/08/20 21:39 Urine Urobilinogen < 2.0 mg/dL (<2.0) 03/08/20 21:39 Ur Leukocyte Esterase Sm (Negative) 03/08/20 21:39 Urine WBC (Auto) 15.0 /HPF (0.0-6.0) H 03/08/20 21:39 Urine RBC (Auto) 11.0 /HPF (0.0-6.0) 03/08/20 21:39 U Epithel Cells (Auto) 8.0 /HPF (0-13.0) 03/08/20 21:39 Urine Bacteria (Auto) 4+ /HPF (Negative) 03/08/20 21:39 Urine Mucus 3+ /HPF 03/08/20 21:39 Nasal Screen MRSA (PCR) Negative (Negative) 03/09/20 Unknown Blood Type B POSITIVE 03/09/20 18:30 Antibody Screen Negative 03/09/20 18:30 Microbiology: Microbiology 03/08/20 21:39 Urine,Clean Catch Urine Culture - Preliminary Sharif/IV: Voiding Method External Female Catheter IV Catheter Type [Right Upper Mid-line arm] IV Catheter Type [Left Forearm INT / Saline Lock ] Active Medications - Current Medications Current Medications: Generic Name Dose Route Start Last Admin Trade Name Freq PRN Reason Stop Dose Admin Atropine Sulfate 0.5 mg 03/10/20 19:46 Atropine IV Q4H PRN HR < 40 Dextrose 50 ml 03/09/20 09:00 03/10/20 18:03 D50w (25gm) Syringe IV 50 ml Q30MIN PRN Administration Hypoglycemia Protocol Dextrose/Sodium Chloride 1,000 mls @ 100 mls/hr 03/08/20 21:00 03/11/20 04:07 D5/0.45ns IV 03/11/20 22:00 100 mls/hr DIRECT SHAWN Administration Levetiracetam 500 mg/ Dextrose 105 mls @ 400 mls/hr 03/09/20 10:00 03/11/20 11:05 IV 400 mls/hr Q12HR SHAWN Administration Piperacillin Sod/Tazobactam Sod 3.375 gm in 50 mls @ 100 mls/hr 03/10/20 12:00 03/11/20 11:07 Zosyn/Ns 3.375gm/50ml IV 100 mls/hr Q6HR SHAWN Administration Protocol Vancomycin HCl 750 mg/ Sodium 265 mls @ 166.667 mls/hr 03/10/20 10:30 03/11/20 11:05 Chloride IV 166.667 mls/hr Q12HR SHAWN Administration Amino Acids/Electrolytes/Dextrose 2,016 mls @ 84 mls/hr 03/11/20 20:00 Tpn Adult IV 03/12/20 19:59 DAILY@2000 [facility] Protocol Insulin Human Regular 0 unit 03/09/20 09:30 03/11/20 11:07 Humulin R SUB-Q Not Given Q6HR SHAWN Protocol Labetalol HCl 10 mg 03/09/20 14:17 Labetalol IV Q4H PRN Hypertension Sodium Chloride 10 ml 03/08/20 22:00 03/11/20 11:16 Sodium Chloride Flush Syringe 10 Ml IV 10 ml BID SHAWN Administration Sodium Chloride 10 ml 03/08/20 19:14 Sodium Chloride Flush Syringe 10 Ml IV PRN PRN LINE FLUSH Nutrition/Malnutrition Assess - Dietary Evaluation Nutrition/Malnutrition Findings: Nutrition Notes Start: 03/09/20 12:52 Freq: Status: Active Protocol: Document 03/10/20 12:22 PHIL (Rec: 03/10/20 12:49 PHIL [id number]) Co-Sign 03/10/20 12:22 LP Nutrition Notes Initial or Follow up Reassessment Current Diagnosis Hypertension,Stroke Other Pertinent Diagnosis Bowel perforation, PMH: dysphagia, stroke with R side deficits, seizures Current Diet NPO Labs/Tests K 3.4 Pertinent Medications D5 1/2NS 100ml/hr KCl 30 mEq Height 5 ft 5 in Weight 36.6 kg [place] Body Weight (kg) 56.81 BMI 13.4 Intake Prior to Admission Poor Weight Status Emaciated Subjective/Other Information F/u nutrition support. Received verbal confirmation from Dr. Tamayo at 1258. Due to pt's emaciation and availablity peripheral line, PPN can be initiated. Noted updated medical diagnosis and GI consult pending. Burn Absent Trauma Absent GI Symptoms Other Current % PO Negligible Minimum of two criteria Yes Energy Intake (severe) < or equal to 50% Estimated Energy Requirement > or equal to 5 days Body Fat Depletion Moderate depletion (severe) Muscle Mass Moderate Depletion (severe) Fluid Accumulation Mild (non-severe) #2 Nutrition Diagnosis Altered GI function Etiology superior mesenteric artery syndrome As Evidenced by Signs and Symptoms MD reports superior mesenteric artery syndrome, NGT placed for LIS, and pt NPO. #1 Nutrition Diagnosis Malnutrition Diagnosis Progress(for reassessment Continues documentation) Is patient on ventilator? No Is Patient Ambulatory and/or Out of Bed No REE-([facility]-confined to bed) 1135.476 Kcal/Kg value to use for calculation 40 Approximate Energy Requirements Using 1464 kcal/Kg Calculation Used for Recommendations Kcal/kg Additional Notes Protein 1.2-1.5g/k-56g Fluid: 1ml/kcal Nutrition Intervention Change Diet Order: Recommend peripheral parenteral nutrition cristian Nutrition Support: For tomorrow, pending lab value: Peripheral Parenteral Nutrition at 84ml/hr. Osmolarity 835. amino acids 2.8% dextrose 6.0% Na 150 mEq K 80 mEq Mg 16 mEq Ca 10 mEq Phos 20mmol Cl/Acetate 50/50 Protein (gm) 56 Carbohydrates (gm) 120 Fat (gm) 0 Fluid (mL) 2,016 Fiber (gm) 0 Goal #1 Pt receives nutrition support Goal #2 Pt tolerates parental nutrition Anticipated Discharge Needs: unable to determine at this time Follow-Up By: 03/11/20 Additional Comments F/u nutrition support
[2020-03-10 17:16] LABS: Hematocrit 34.9 % (30.3-42.9); Hemoglobin 11.7 gm/dl (10.1-14.3)
[2020-03-10] MEDS ORDERED: ATROPINE 1 MG/ML VIAL IV PRN (19:46)
[2020-03-11] MEDS: PIPERACILLIN/TAZOBACTAM 3.375 3.375 GM/50 ML BAG IV SCH ×4 (00:08→18:37)
[2020-03-11] MEDS: INSULIN REGULAR, HUMAN 100 UNIT/ML 3ML VIAL SUB-Q SCH ×4 (00:09→19:36)
--- NOTE | 2020-03-11 03:32 | XRay Report ---
Abdomen single view INDICATION: Abdominal pain IMPRESSION: Colonic pneumatosis, especially along the right mid abdomen has not significantly changed from 03/09/2020. Signer Name: Jamie Jones MD Signed: 03/11/2020 3:28 AM Workstation Name: [id number]
[2020-03-11] MEDS: D5W/0.45% NACL 1,000 ML IV SCH ×2 (04:07→14:34)
--- NOTE | 2020-03-11 05:59 | Event Note ---
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 She has remained stable thus far, I have attempted the transfer since admission. Continue present care until transfer can be implemented, tentatively Friday.this case may require back up by a hepatobiliary surgeon, among other things that we DO NOT have available at [facility]. I have documented this fairly extensively.
--- NOTE | 2020-03-11 06:22 | Event Note ---
Date: 03/11/20 Can we change from labetolol for BP management given her low heart rate ?
[2020-03-11 06:43] LABS: Alanine Aminotransferase 6 units/L (7-56); Albumin 2.1 g/dL (3.9-5); Blood Urea Nitrogen 7 mg/dL (7-17); Calcium 7.5 mg/dL (8.4-10.2); Hemolysis Index 10
[2020-03-11 06:49] LABS: BUN/Creatinine Ratio 14
[2020-03-11] MEDS: VANCOMYCIN 750 MG in SODIUM CHLORIDE 0.9% 250ML 250 ML IV SCH (11:05)
[2020-03-11] MEDS: levETIRAcetam 500 MG in DEXTROSE 5% IN WATER 100 ML IV SCH (11:05)
--- NOTE | 2020-03-11 11:59 | Progress Note ---
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 -Once she is on TPN, stop IVF -Accuchecks with glycemoc control -Serial abdominal exams, monitor temp and WCC IV Zosyn and Vancomycin. Follow final cultures and de-escalate as clinically indicated. Monitor for toxicities NG tube to LIS Correct metabolic derangements Fall and aspiration precautions -AEDs, IV -Seizure precautions -Hydrallazine maybe a good option for BP control Optimize nutritional support SCDs to bilateral lower extremities while in bed-thrombocytopenic Transfer to tertiary institution for definitive care, once bed is available Subjective Date of service: 03/11/20 Interval history: Patient is seen today for: abnormal CT abdomen, critical care managment Seen and examined at bedside; 24hour events reviewed; nursing and respiratory care staff consulted; no adverse overnight events reported to me; She is resting peacefully in bed, in no distress. NGT to PRATIBHA, total output 200ml. Not in any distress, on IV fluids, no vomiting, no diarrhea, no fevers Objective Vital Signs - 12hr 03/11/20 03/11/20 03/11/20 00:00 00:31 01:00 Temperature 97.9 F Pulse Rate 55 L 61 63 Pulse Rate [ 56 L From Monitor] Respiratory 12 13 18 Rate Blood Pressure 113/66 134/78 129/84 O2 Sat by Pulse 97 98 99 Oximetry 03/11/20 03/11/20 03/11/20 01:30 02:00 02:30 Temperature Pulse Rate 53 L 62 50 L Pulse Rate [ From Monitor] Respiratory 12 12 13 Rate Blood Pressure 130/75 107/59 129/74 O2 Sat by Pulse 99 96 97 Oximetry 03/11/20 03/11/20 03/11/20 03:01 03:31 04:00 Temperature Pulse Rate 66 67 Pulse Rate [ 67 From Monitor] Respiratory 10 L 12 Rate Blood Pressure 129/74 129/74 O2 Sat by Pulse 100 100 100 Oximetry 03/11/20 03/11/20 03/11/20 04:01 04:19 04:30 Temperature 97.6 F Pulse Rate 60 51 L Pulse Rate [ From Monitor] Respiratory 10 L 11 L Rate Blood Pressure 136/81 126/73 O2 Sat by Pulse 100 100 Oximetry 03/11/20 03/11/20 03/11/20 05:00 05:31 06:00 Temperature Pulse Rate 54 L 63 55 L Pulse Rate [ From Monitor] Respiratory 11 L 12 12 Rate Blood Pressure 117/73 150/82 146/89 O2 Sat by Pulse 100 100 100 Oximetry 03/11/20 03/11/20 03/11/20 06:30 07:00 07:30 Temperature Pulse Rate 53 L 61 50 L Pulse Rate [ From Monitor] Respiratory 10 L 11 L 10 L Rate Blood Pressure 127/74 117/77 151/85 O2 Sat by Pulse 100 99 100 Oximetry 03/11/20 03/11/20 03/11/20 08:00 08:30 09:00 Temperature 97.5 F L Pulse Rate 53 L 50 L 52 L Pulse Rate [ From Monitor] Respiratory 10 L 10 L 10 L Rate Blood Pressure 143/81 150/84 150/85 O2 Sat by Pulse 100 100 100 Oximetry Constitutional: no acute distress, other (chronically ill looking, lanugo hair, temporal wasting) Eyes: non-icteric ENT: oropharynx dry Neck: supple, no lymphadenopathy, no JVD Effort: normal Ascultation: Bilateral: clear, diminished breath sounds Cardiovascular: regular rate and rhythm, other (S1,S2) Gastrointestinal: normoactive bowel sounds, soft, non-tender, non-distended Integumentary: normal Extremities: no cyanosis, no edema, pink and warm, pulses normal Neurologic: pupils equal and round, CN II-XII normal, other (dysarthria) Psychiatric: affect normal CBC and BMP: 03/12/20 04:00 03/12/20 04:00 ABG, PT/INR, D-dimer: PT/INR, D-dimer PT 14.6 Sec. (12.2-14.9) 03/08/20 19:17 INR 1.13 (0.87-1.13) 03/08/20 19:17 Abnormal lab findings: Abnormal Labs 03/08/20 03/08/20 03/08/20 16:10 16:10 16:44 WBC 2.7 L RBC Hgb 15.6 H Hct 47.3 H RDW 15.5 H Plt Count 108 L Lymph % (Auto) 10.5 L Lymph # (Auto) 0.3 L Seg Neutrophils % 82.9 H APTT Sodium 147 H Potassium Carbon Dioxide 32 H Creatinine Glucose POC Glucose Calcium Phosphorus Magnesium ALT Total Creatine Kinase 27 L Total Protein Albumin 3.3 L Urine WBC (Auto) 03/08/20 03/08/20 03/09/20 19:17 21:39 04:13 WBC 4.2 L RBC 3.07 L Hgb 9.7 L D Hct 29.6 L D RDW 15.3 H Plt Count 115 L Lymph % (Auto) 8.7 L Lymph # (Auto) 0.4 L Seg Neutrophils % 73.9 H APTT 23.7 L Sodium Potassium Carbon Dioxide Creatinine Glucose POC Glucose Calcium Phosphorus Magnesium ALT Total Creatine Kinase Total Protein Albumin Urine WBC (Auto) 15.0 H 03/09/20 03/09/20 03/10/20 04:13 14:11 03:33 WBC RBC Hgb Hct RDW Plt Count Lymph % (Auto) Lymph # (Auto) Seg Neutrophils % APTT Sodium Potassium 3.2 L 3.4 L Carbon Dioxide 32 H Creatinine Glucose 105 H POC Glucose 127 H Calcium 7.9 L 7.6 L Phosphorus Magnesium ALT 6 L Total Creatine Kinase Total Protein Albumin 2.5 L Urine WBC (Auto) 03/10/20 03/10/20 03/11/20 18:13 23:11 05:35 WBC RBC Hgb Hct RDW Plt Count Lymph % (Auto) Lymph # (Auto) Seg Neutrophils % APTT Sodium Potassium 3.2 L Carbon Dioxide Creatinine 0.5 L Glucose 106 H POC Glucose 61 L 120 H Calcium 7.5 L Phosphorus 2.30 L Magnesium 1.50 L ALT 6 L Total Creatine Kinase Total Protein 5.5 L Albumin 2.1 L Urine WBC (Auto)
[2020-03-11] MEDS ORDERED: MAGNESIUM SULFATE 2 GM/50 ML BAG IV ONE (12:00)
[2020-03-11] MEDS: POTASSIUM CHLORIDE 10 MEQ 10 MEQ/100 ML BAG IV SCH ×3 (13:26→15:56)
--- NOTE | 2020-03-11 19:38 | Progress Note ---
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 Associated with bowel perforation with the majority of air in the upper abdomen suggesting perforation of the region of the hepatic flexure and mild bibasilar e mphysema with mild left basilar atelectasis, a small to moderate pericardial effusion and calcifications in the region of the pancreas possibly representing chronic pancreatitis 03/09 CT angio abdomen/pelvis shows mild to moderate atherosclerotic disease in the abdominal aortoiliac arteries and mesenteric arteries with no mesenteric stenosis or occlusion, and narrowing between the superior mesenteric artery and aorta with mass-effect on the transverse/distal duodenum which 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 03/10 abdominal ultrasound shows an incompletely distended gallbladder with minimally thickened gallbladder wall, linear echogenic foci within the contracted gallbladder lumen likely representing intraluminal air as seen on recent CT abdomen and pelvis, mild pneumobilia and pneumoperitoneum Surgery consulted: Attempted to transfer the patient to [place] however was unable to on 03/08, Possible SMA syndrome vs gallstone illeus and perhaps a cholecysto vs choledochoenteric fistula NPO, IVF Trend CBC Trend CMP IV Zosyn 03/08 BC grew out gram-positive cocci in clusters and pairs, initiated on vancomycin with PKS to dose NG tube to LIS 03/09 GI consulted per surgery request; agree with obtaining MRCP plan 03/10 GI signed off, wrote to continue antibiotics and NG tube to LIS and agreed with need for surgical intervention Vascular surgery consulted who recommends since there is no leukocytosis, lactic acidosis, or evidence of peritonitis given she has a small amount of free air however no portal venous gas and physical exam is benign. I would not recommend surgical intervention unless 1 of these things were to change. Would recommend continued antibiotics and possible elemental diet with follow-up abdominal films and to the pneumatosis intestinalis resolves. (2) Acute encephalopathy Current Visit: No Status: Acute Plan to address problem: Supportive care Reorientation as needed Correct metabolic derangements Fall and aspiration precautions (3) Hypokalemia Current Visit: No Status: Acute Plan to address problem: 03/09 potassium 3.2, repleted with 40 mEq IV KCl Trend BMP Replete as needed 03/10 potassium 3.4, repleted with 10 mEq IV KCl -03/11, K still low with low mg and phosphate - replete (4) UTI (urinary tract infection) Current Visit: Yes Status: Acute Plan to address problem: 03/08 UA shows small LE, positive for nitrates and pyuria 03/08 urine culture with mixed andreina, probable contamination IV antibiotic therapy Trend CBC (5) 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 intake when able; statin, aspirin, anti-hypertensive regimen (6) Seizure disorder Current Visit: No Status: Chronic Plan to address problem: Seizure precautions Supportive [facility] Keppra 500 mg p.o. twice daily changed to IV 500 mg twice daily while n.p. o. (7) Hypertension Current Visit: No Status: Chronic Plan to address problem: Blood pressure monitor per protocol Resume home antihypertensive regimen when not n.p.o. IV hydralazine as needed for SBP greater than 160 (8) Protein-calorie malnutrition, severe Current Visit: No Status: Chronic Plan to address problem: Supportive care Increase protein intake with dietary supplementation as tolerated p ostoperatively Nutrition consult (9) Sinus bradycardia Current Visit: No Status: Acute Plan to address problem: Avoid any BB, cont to monitor (10) DVT prophylaxis Current Visit: No Status: Acute Plan to address problem: SCDs to bilateral lower extremities while in bed History Interval history: 59 YO Female with CVA complicated by Debility, Expressive Aphasia, HTN, Seizure Disorder, HLD, Sacral Decubitus Ulcer presents to ED for 3 days of vomiting prior to arrival on 03/08 and found to be in distress by home health nurse and EMS. CT scan of the abdomen and pelvis revealed perforated viscus. Surgical team consulted in the emergency department. Surgery recommend for transfer to [place] however was unable to get in contact with a surgeon there and ordered a abd US for evaluation. Patient received further work-up for her possible SMA syndrome which included a CTA abdomen and abdominal ultrasound which still demonstrated the pneumoperitoneum, a narrowing between the SMA and aorta with mass-effect to the transverse and distal duodenum and pneumonitis intestinalis. The surgeon attempted to transfer her over to [facility] and they will take the patient on [place]. cont to provide supportive care. Subjective Date of service: 03/11/20 Interval history: Patient seen and examined patient is aphasic, has no o/n issue Noted bradycardic on tele Objective - Exam Narrative Exam: General appearance: Present: no acute distress, cachectic - EENT Eyes: Present: PERRL, EOM intact ENT: hearing decreased, poor dentition - Neck Neck: Present: normal ROM - Respiratory Respiratory effort: normal Respiratory: bilateral: CTA - Cardiovascular Rhythm: regular Heart Sounds: Present: S1 & S2. Absent: systolic murmur, diastolic murmur - Extremities Extremities: no ischemia, pulses intact, pulses symmetrical, No edema, normal temperature, normal color Peripheral Pulses: within normal limits - Abdominal General gastrointestinal: soft, non-tender, non-distended, normal bowel sounds - Integumentary Integumentary: Present: warm, dry - Psychiatric Psychiatric: cooperative - Neurologic Neurologic: CNII-XII intact, moves all extremities - Constitutional Vitals: Vital Signs - 12hr 03/11/20 03/11/20 03/11/20 08:00 08:30 09:00 Temperature 97.5 F L Pulse Rate 53 L 50 L 52 L Respiratory 10 L 10 L 10 L Rate Blood Pressure 143/81 150/84 150/85 O2 Sat by Pulse 100 100 100 Oximetry 03/11/20 03/11/20 03/11/20 09:30 10:00 10:30 Temperature Pulse Rate 55 L 49 L 58 L Respiratory 10 L 10 L 9 L Rate Blood Pressure 145/83 153/90 147/91 O2 Sat by Pulse 100 100 100 Oximetry 03/11/20 03/11/20 03/11/20 11:00 11:30 12:00 Temperature 97.5 F L Pulse Rate 58 L 60 55 L Respiratory 12 14 10 L Rate Blood Pressure 149/84 139/84 136/84 O2 Sat by Pulse 100 100 100 Oximetry 03/11/20 03/11/20 03/11/20 12:30 13:00 13:30 Temperature Pulse Rate 66 72 55 L Respiratory 10 L 15 10 L Rate Blood Pressure 141/89 139/83 154/85 O2 Sat by Pulse 100 100 100 Oximetry 03/11/20 03/11/20 03/11/20 14:00 14:30 15:00 Temperature Pulse Rate 47 L 56 L 58 L Respiratory 12 16 13 Rate Blood Pressure 142/78 144/86 153/97 O2 Sat by Pulse 100 100 100 Oximetry 03/11/20 03/11/20 03/11/20 15:30 16:00 16:30 Temperature 97.5 F L Pulse Rate 61 55 L 63 Respiratory 11 L 22 11 L Rate Blood Pressure 152/88 152/89 159/93 O2 Sat by Pulse 100 100 100 Oximetry 03/11/20 03/11/20 03/11/20 17:00 17:30 18:00 Temperature Pulse Rate 64 63 67 Respiratory 11 L 17 11 L Rate Blood Pressure 158/103 161/87 166/102 O2 Sat by Pulse 100 100 100 Oximetry 03/11/20 18:30 Temperature Pulse Rate 59 L Respiratory 12 Rate Blood Pressure 147/88 O2 Sat by Pulse 100 Oximetry - Labs CBC & Chem 7: 03/12/20 04:00 03/13/20 06:38 Labs: Abnormal lab results 03/10/20 03/11/20 Range/Units 23:11 05:35 Potassium 3.2 L (3.6-5.0) mmol/L Creatinine 0.5 L (0.6-1.2) mg/dL Glucose 106 H (65-100) mg/dL POC Glucose 120 H (70-105) mg/dL Calcium 7.5 L (8.4-10.2) mg/dL Phosphorus 2.30 L (2.5-4.5) mg/dL Magnesium 1.50 L (1.7-2.3) mg/dL ALT 6 L (7-56) units/L Total Protein 5.5 L (6.3-8.2) g/dL Albumin 2.1 L (3.9-5) g/dL
[2020-03-11] MEDS ORDERED: POTASSIUM CHLORIDE 10 MEQ 10 MEQ/100 ML BAG IV SCH (20:00)
[2020-03-11] MEDS ORDERED: TOTAL PARENTERAL NUTRITION 2,016 ML IV SCH (20:00)
[2020-03-12] MEDS: VANCOMYCIN 750 MG in SODIUM CHLORIDE 0.9% 250ML 250 ML IV SCH (00:38)
[2020-03-12] MEDS: levETIRAcetam 500 MG in DEXTROSE 5% IN WATER 100 ML IV SCH ×3 (00:39→22:21)
[2020-03-12] MEDS: PIPERACILLIN/TAZOBACTAM 3.375 3.375 GM/50 ML BAG IV SCH ×4 (00:59→23:56)
[2020-03-12 04:42] LABS: Hematocrit 31.7 % (30.3-42.9); Hemoglobin 10.7 gm/dl (10.1-14.3); Mean Corpuscular HGB Conc 34 % (30-34); Mean Corpuscular Volume 94 fl (79-97); Platelet Count 108 K/mm3 (140-440); Red Blood Count 3.37 M/mm3 (3.65-5.03); Red Cell Distribution Width 15.5 % (13.2-15.2)
[2020-03-12 05:16] LABS: Alanine Aminotransferase 6 units/L (7-56); Blood Urea Nitrogen 5 mg/dL (7-17); Calcium 7.6 mg/dL (8.4-10.2); Hemolysis Index 8
[2020-03-12 05:18] LABS: BUN/Creatinine Ratio 10
[2020-03-12 06:24] LABS: Anisocytosis 1+; Basophils % (Manual) 0 % (0.0-1.8); Platelet Estimate Consistent w Auto; Total Cells Counted 100
[2020-03-12] MEDS: INSULIN REGULAR, HUMAN 100 UNIT/ML 3ML VIAL SUB-Q SCH ×4 (06:27→18:05)
[2020-03-12] MEDS: POTASSIUM CHLORIDE 10 MEQ 10 MEQ/100 ML BAG IV SCH ×5 (06:48→09:18)
[2020-03-12] MEDS: hydrALAZINE 20 MG/1 ML INJ IV PRN (07:12)
[2020-03-12] MEDS ORDERED: VANCOMYCIN 500 MG in SODIUM CHLORIDE 0.9% 100 ML IV SCH (10:00)
--- NOTE | 2020-03-12 10:36 | Event Note ---
Date: 03/12/20 Hopefully transfer to [facility] in am , conference today with [facility] transfer hopefully, patient needs discharge summary , CDs from all radiologic studies, available. Continue CHRISTIE, NPO, iv PALAK boudreaux.
--- NOTE | 2020-03-12 12:04 | Event Note ---
Date: 03/12/20 BOTH POSITIVE BLOOD CULTURS Coag negative staph- probable contaminant.
--- NOTE | 2020-03-12 17:20 | Event Note ---
Date: 03/12/20 I still have NOT been contacted by [facility] transfer service, I am still waiting for contact. Everything I can do to facilitate transfer has been done.
--- NOTE | 2020-03-12 18:18 | Progress Note ---
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 Associated with bowel perforation with the majority of air in the upper abdomen suggesting perforation of the region of the hepatic flexure and mild bibasilar emphysema with mild left basilar atelectasis, a small to moderate pericardial effusion and calcifications in the region of the pancreas possibly representing chronic pancreatitis 03/09 CT angio abdomen/pelvis shows mild to moderate atherosclerotic disease in the abdominal aortoiliac arteries and mesenteric arteries with no mesenteric stenosis or occlusion, and narrowing between the superior mesenteric artery and aorta with mass-effect on the transverse/distal duodenum which 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 03/10 abdominal ultrasound shows an incompletely distended gallbladder with minimally thickened gallbladder wall, linear echogenic foci within the contracted gallbladder lumen likely representing intraluminal air as seen on recent CT abdomen and pelvis, mild pneumobilia and pneumoperitoneum Surgery consulted: Attempted to transfer the patient to [place] however was unable to on 03/08, Possible SMA syndrome vs gallstone illeus and perhaps a cholecysto vs choledochoenteric fistula NPO, IVF Trend CBC Trend CMP IV Zosyn 03/08 BC grew out gram-positive cocci in clusters and pairs, initiated on vancomycin with PKS to dose NG tube to LIS 03/09 GI consulted per surgery request; agree with obtaining MRCP plan 03/10 GI signed off, wrote to continue antibiotics and NG tube to LIS and agreed with need for surgical intervention Vascular surgery consulted who recommends since there is no leukocytosis, lactic acidosis, or evidence of peritonitis given she has a small amount of free air however no portal venous gas and physical exam is benign. I would not recommend surgical intervention unless 1 of these things were to change. Would recommend continued antibiotics and possible elemental diet with follow-up abdominal films and to the pneumatosis intestinalis resolves. (2) Acute encephalopathy Current Visit: No Status: Acute Plan to address problem: Supportive care Reorientation as needed Correct metabolic derangements Fall and aspiration precautions (3) Hypokalemia Current Visit: No Status: Acute Plan to address problem: 03/09 potassium 3.2, repleted with 40 mEq IV KCl Trend BMP Replete as needed 03/10 potassium 3.4, repleted with 10 mEq IV KCl -03/11, K still low with low mg and phosphate - replete (4) UTI (urinary tract infection) Current Visit: Yes Status: Acute Plan to address problem: 03/08 UA shows small LE, positive for nitrates and pyuria 03/08 urine culture with mixed andreina, probable contamination IV antibiotic therapy Trend CBC (5) 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 intake when able; statin, aspirin, anti-hypertensive regimen (6) Seizure disorder Current Visit: No Status: Chronic Plan to address problem: Seizure precautions Supportive [facility] living Keppra 500 mg p.o. twice daily changed to IV 500 mg twice daily while n.p .o. (7) Hypertension Current Visit: No Status: Chronic Plan to address problem: Blood pressure monitor per protocol Resume home antihypertensive regimen when not n.p.o. IV hydralazine as needed for SBP greater than 160 (8) Protein-calorie malnutrition, severe Current Visit: No Status: Chronic Plan to address problem: Supportive care Increase protein intake with dietary supplementation as tolerated postoperatively Nutrition consult (9) Sinus bradycardia Current Visit: No Status: Acute Plan to address problem: Avoid any BB, cont to monitor (10) DVT prophylaxis Current Visit: No Status: Acute Plan to address problem: SCDs to bilateral lower extremities while in bed History Interval history: 59 YO Female with CVA complicated by Debility, Expressive Aphasia, HTN, Seizure Disorder, HLD, Sacral Decubitus Ulcer presents to ED for 3 days of vomiting prior to arrival on 03/08 and found to be in distress by home health nurse and EMS. CT scan of the abdomen and pelvis revealed perforated viscus. Surgical team consulted in the emergency department. Surgery recommend for transfer to [place] however was unable to get in contact with a surgeon there and ordered a ab d US for evaluation. Patient received further work-up for her possible SMA syndrome which included a CTA abdomen and abdominal ultrasound which still demonstrated the pneumoperitoneum, a narrowing between the SMA and aorta with mass-effect to the transverse and distal duodenum and pneumonitis intestinalis. The surgeon attempted to transfer her over to [facility] and they will take the patient on Friday. cont to provide supportive care. Subjective Date of service: 03/12/20 Interval history: Patient seen and examined patient is aphasic, has no o/n issue Noted bradycardic on tele Objective - Exam Narrative Exam: General appearance: Present: no acute distress, cachectic - EENT Eyes: Present: PERRL, EOM intact ENT: hearing decreased, poor dentition - Neck Neck: Present: normal ROM - Respiratory Respiratory effort: normal Respiratory: bilateral: CTA - Cardiovascular Rhythm: regular Heart Sounds: Present: S1 & S2. Absent: systolic murmur, diastolic murmur - Extremities Extremities: no ischemia, pulses intact, pulses symmetrical, No edema, normal temperature, normal color Peripheral Pulses: within normal limits - Abdominal General gastrointestinal: soft, non-tender, non-distended, normal bowel sounds - Integumentary Integumentary: Present: warm, dry - Psychiatric Psychiatric: cooperative - Neurologic Neurologic: CNII-XII intact, moves all extremities - Constitutional Vitals: Vital Signs - 12hr 03/12/20 03/12/20 03/12/20 06:30 07:00 07:12 Temperature Pulse Rate 61 56 L 79 Respiratory 9 L 14 Rate Blood Pressure 176/92 172/86 172/86 O2 Sat by Pulse 100 100 Oximetry 03/12/20 03/12/20 03/12/20 07:30 08:00 08:30 Temperature 97.5 F L Pulse Rate 107 H 133 H 75 Respiratory 12 12 12 Rate Blood Pressure 172/116 178/106 133/78 O2 Sat by Pulse 98 100 99 Oximetry 03/12/20 03/12/20 03/12/20 09:00 09:30 10:00 Temperature Pulse Rate 76 60 81 Respiratory 14 13 14 Rate Blood Pressure 135/88 136/77 148/95 O2 Sat by Pulse 100 100 100 Oximetry 03/12/20 03/12/20 03/12/20 10:30 11:00 11:30 Temperature Pulse Rate 73 77 71 Respiratory 12 12 10 L Rate Blood Pressure 151/95 153/86 143/84 O2 Sat by Pulse 100 100 100 Oximetry 03/12/20 03/12/20 03/12/20 12:00 12:30 14:13 Temperature 97.5 F L Pulse Rate 71 152 H Respiratory 11 L Rate Blood Pressure 140/81 146/80 146/80 O2 Sat by Pulse 100 98 Oximetry 03/12/20 03/12/20 14:20 16:01 Temperature 98.8 F Pulse Rate 100 H Respiratory 18 Rate Blood Pressure 146/80 134/82 O2 Sat by Pulse 100 Oximetry - Labs CBC & Chem 7: 03/12/20 04:00 03/13/20 06:38 Labs: Abnormal lab results 03/12/20 03/12/20 03/12/20 Range/Units 01:14 EST 04:00 04:00 WBC 1.7 L* (4.5-11.0) K/mm3 RBC 3.37 L (3.65-5.03) M/mm3 RDW 15.5 H (13.2-15.2) % Plt Count 108 L (140-440) K/mm3 Seg Neuts % (Manual) 77.0 H (40.0-70.0) % Lymphocytes % (Manual) 11.0 L (13.4-35.0) % Monocytes % (Manual) 11.0 H (0.0-7.3) % Seg Neutrophils # Man 1.3 L (1.8-7.7) K/mm3 Lymphocytes # (Manual) 0.2 L (1.2-5.4) K/mm3 Potassium 3.5 L (3.6-5.0) mmol/L BUN 5 L (7-17) mg/dL Creatinine 0.5 L (0.6-1.2) mg/dL POC Glucose 106 H (70-105) mg/dL Calcium 7.6 L (8.4-10.2) mg/dL ALT 6 L (7-56) units/L Total Protein 5.4 L (6.3-8.2) g/dL Albumin 2.0 L (3.9-5) g/dL
[2020-03-12] MEDS ORDERED: TOTAL PARENTERAL NUTRITION 2,016 ML IV SCH (20:00)
[2020-03-13] MEDS: INSULIN REGULAR, HUMAN 100 UNIT/ML 3ML VIAL SUB-Q SCH ×4 (06:52→18:26)
[2020-03-13] MEDS: PIPERACILLIN/TAZOBACTAM 3.375 3.375 GM/50 ML BAG IV SCH ×8 (06:53→22:21)
[2020-03-13 07:33] LABS: Blood Urea Nitrogen 8 mg/dL (7-17); Calcium 7.9 mg/dL (8.4-10.2); Hemolysis Index 3
[2020-03-13 07:34] LABS: BUN/Creatinine Ratio 20
--- NOTE | 2020-03-13 10:35 | Event Note ---
Date: 03/13/20 Contacted by Hospitalist at [facility], they have accepted transfer today, We need to send discharge summary and CDs of CT scans done at [facility]/ sent with patient!!!
[2020-03-13] MEDS: levETIRAcetam 500 MG in DEXTROSE 5% IN WATER 100 ML IV SCH ×2 (11:21→22:23)
--- NOTE | 2020-03-13 14:11 | Progress Note ---
Assessment and Plan Patient sleeping. No acute respiratory distress. Patient is on room air.O2 saturation 100%. Patient afebrile. Patient leukopenic. Patient is on zosyn. Recommend chest xray and ABGs. Patient admitted for bowel perforation. Patient is transfering to [facility]. - Patient Problems (1) Bowel perforation Current Visit: Yes Status: Acute Plan to address problem: Management as per surgery. Patient transfering to [facility]. (2) Pneumatosis intestinalis Current Visit: Yes Status: Acute Plan to address problem: Management as per surgery. (3) Pneumoperitoneum Current Visit: Yes Status: Acute Plan to address problem: Management as per surgery. (4) Acute encephalopathy Current Visit: No Status: Acute Plan to address problem: Management as per primary care. (5) Hypertension Current Visit: No Status: Chronic Plan to address problem: As per primary care. Subjective Date of service: 03/13/20 Interval history: Patient sleeping. No acute respiratory distress. Patient is on room air.O2 saturation 100%. Patient afebrile. Patient leukopenic. Patient is on zosyn. Recommend chest xray and ABGs. Patient admitted for bowel perforation. Patient is transfering to [facility]. Objective Vital Signs - 12hr 03/13/20 03/13/20 03/13/20 04:39 05:35 07:30 Temperature 98.3 F 98.3 F Pulse Rate 95 H 76 83 Respiratory 14 20 Rate Blood Pressure 170/110 177/110 Blood Pressure 157/95 [Left] Blood Pressure [Right] O2 Sat by Pulse 100 100 Oximetry 03/13/20 03/13/20 11:02 11:45 Temperature 98.2 F 98.2 F Pulse Rate 71 Respiratory 18 18 Rate Blood Pressure 154/85 Blood Pressure [Left] Blood Pressure 154/83 [Right] O2 Sat by Pulse 100 Oximetry Constitutional: no acute distress, asleep, other (chronically ill looking, temporal wasting) Eyes: non-icteric ENT: oropharynx dry Neck: supple, no lymphadenopathy, no JVD Effort: normal Ascultation: Bilateral: diminished breath sounds Cardiovascular: regular rate and rhythm, other (S1,S2) Gastrointestinal: normoactive bowel sounds, soft, non-tender, non-distended Integumentary: normal Extremities: no cyanosis, no edema, pink and warm, pulses normal Neurologic: pupils equal and round, CN II-XII normal, other (dysarthria) Psychiatric: affect normal CBC and BMP: 03/12/20 04:00 03/13/20 06:38 ABG, PT/INR, D-dimer: PT/INR, D-dimer PT 14.6 Sec. (12.2-14.9) 03/08/20 19:17 INR 1.13 (0.87-1.13) 03/08/20 19:17 Abnormal lab findings: Abnormal Labs 03/08/20 03/08/20 03/08/20 16:10 16:10 16:44 WBC 2.7 L RBC Hgb 15.6 H Hct 47.3 H RDW 15.5 H Plt Count 108 L Lymph % (Auto) 10.5 L Lymph # (Auto) 0.3 L Seg Neutrophils % 82.9 H Seg Neuts % (Manual) Lymphocytes % (Manual) Monocytes % (Manual) Seg Neutrophils # Man Lymphocytes # (Manual) APTT Sodium 147 H Potassium Carbon Dioxide 32 H BUN Creatinine Glucose POC Glucose Calcium Phosphorus Magnesium ALT Total Creatine Kinase 27 L Total Protein Albumin 3.3 L Urine WBC (Auto) 03/08/20 03/08/20 03/09/20 19:17 21:39 04:13 WBC 4.2 L RBC 3.07 L Hgb 9.7 L D Hct 29.6 L D RDW 15.3 H Plt Count 115 L Lymph % (Auto) 8.7 L Lymph # (Auto) 0.4 L Seg Neutrophils % 73.9 H Seg Neuts % (Manual) Lymphocytes % (Manual) Monocytes % (Manual) Seg Neutrophils # Man Lymphocytes # (Manual) APTT 23.7 L Sodium Potassium Carbon Dioxide BUN Creatinine Glucose POC Glucose Calcium Phosphorus Magnesium ALT Total Creatine Kinase Total Protein Albumin Urine WBC (Auto) 15.0 H 03/09/20 03/09/20 03/10/20 04:13 14:11 03:33 WBC RBC Hgb Hct RDW Plt Count Lymph % (Auto) Lymph # (Auto) Seg Neutrophils % Seg Neuts % (Manual) Lymphocytes % (Manual) Monocytes % (Manual) Seg Neutrophils # Man Lymphocytes # (Manual) APTT Sodium Potassium 3.2 L 3.4 L Carbon Dioxide 32 H BUN Creatinine Glucose 105 H POC Glucose 127 H Calcium 7.9 L 7.6 L Phosphorus Magnesium ALT 6 L Total Creatine Kinase Total Protein Albumin 2.5 L Urine WBC (Auto) 03/10/20 03/10/20 03/11/20 18:13 23:11 05:35 WBC RBC Hgb Hct RDW Plt Count Lymph % (Auto) Lymph # (Auto) Seg Neutrophils % Seg Neuts % (Manual) Lymphocytes % (Manual) Monocytes % (Manual) Seg Neutrophils # Man Lymphocytes # (Manual) APTT Sodium Potassium 3.2 L Carbon Dioxide BUN Creatinine 0.5 L Glucose 106 H POC Glucose 61 L 120 H Calcium 7.5 L Phosphorus 2.30 L Magnesium 1.50 L ALT 6 L Total Creatine Kinase Total Protein 5.5 L Albumin 2.1 L Urine WBC (Auto) 03/12/20 03/12/20 03/12/20 01:14 EST 04:00 04:00 WBC 1.7 L* RBC 3.37 L Hgb Hct RDW 15.5 H Plt Count 108 L Lymph % (Auto) Lymph # (Auto) Seg Neutrophils % Seg Neuts % (Manual) 77.0 H Lymphocytes % (Manual) 11.0 L Monocytes % (Manual) 11.0 H Seg Neutrophils # Man 1.3 L Lymphocytes # (Manual) 0.2 L APTT Sodium Potassium 3.5 L Carbon Dioxide BUN 5 L Creatinine 0.5 L Glucose POC Glucose 106 H Calcium 7.6 L Phosphorus Magnesium ALT 6 L Total Creatine Kinase Total Protein 5.4 L Albumin 2.0 L Urine WBC (Auto) 03/13/20 06:38 WBC RBC Hgb Hct RDW Plt Count Lymph % (Auto) Lymph # (Auto) Seg Neutrophils % Seg Neuts % (Manual) Lymphocytes % (Manual) Monocytes % (Manual) Seg Neutrophils # Man Lymphocytes # (Manual) APTT Sodium Potassium Carbon Dioxide BUN Creatinine 0.4 L Glucose POC Glucose Calcium 7.9 L Phosphorus Magnesium ALT Total Creatine Kinase Total Protein Albumin Urine WBC (Auto)
[2020-03-13] MEDS ORDERED: TOTAL PARENTERAL NUTRITION 2,016 ML IV SCH (20:00)
--- NOTE | 2020-03-13 22:11 | XRay Report ---
CHEST 1 VIEW INDICATION: Pneumoperitoneum., aspiration. Tob[employer] use disorder. COMPARISON: 03/08/2020 FINDINGS: Support devices: Nasogastric tube is in satisfactory position. Heart: Normal. Lungs/Pleura: No acute pulmonary or pleural findings. IMPRESSION: 1. No acute findings. Signer Name: Lul Echols MD Signed: 03/13/2020 10:06 PM Workstation Name: [id number]
[2020-03-14] MEDS: PIPERACILLIN/TAZOBACTAM 3.375 3.375 GM/50 ML BAG IV SCH ×5 (00:07→23:25)
[2020-03-14] MEDS: INSULIN REGULAR, HUMAN 100 UNIT/ML 3ML VIAL SUB-Q SCH ×4 (02:32→17:55)
--- NOTE | 2020-03-14 06:28 | Event Note ---
Date: 03/14/20 Apparently waiting on bed at [facility], NG needs to be replaced, hemodyn stable, hopefully transfer soon. We really need input from [facility] surgeons, I am unable to address this patient's problems from a General surgical standpoint for reasons allready documented on the medical record.
[2020-03-14 06:31] LABS: Blood Urea Nitrogen 10 mg/dL (7-17); Hemolysis Index 2
[2020-03-14 06:32] LABS: BUN/Creatinine Ratio 20
[2020-03-14] MEDS: levETIRAcetam 500 MG in DEXTROSE 5% IN WATER 100 ML IV SCH ×2 (09:08→21:41)
--- NOTE | 2020-03-14 09:51 | Progress Note ---
Assessment and Plan Patient sleeping. No acute respiratory distress. Patient is on room air.O2 saturation 96%. Patient afebrile. Patient leukopenic. Patient is on zosyn. Patient admitted for bowel perforation. [facility] Patients chest xray done 03/13/20 reported No acute process. ABGs pending. - Patient Problems (1) Bowel perforation Current Visit: Yes Status: Acute Plan to address problem: Management as per surgery. Patient transfering to [facility]. (2) Pneumatosis intestinalis Current Visit: Yes Status: Acute Plan to address problem: Management as per surgery. (3) Pneumoperitoneum Current Visit: Yes Status: Acute Plan to address problem: Management as per surgery. (4) Acute encephalopathy Current Visit: No Status: Acute Plan to address problem: Management as per primary care. (5) Hypertension Current Visit: No Status: Chronic Plan to address problem: As per primary care. Subjective Date of service: 03/14/20 Interval history: Patient sleeping. No acute respiratory distress. Patient is on room air.O2 saturation 96%. Patient afebrile. Patient leukopenic. Patient is on zosyn. Patient admitted for bowel perforation. Patient is [facility]. Patients chest xray done 03/13/20 reported No acute process. ABGs pending. Objective Vital Signs - 12hr 03/14/20 03/14/20 03/14/20 00:17 05:20 07:47 Temperature 98.8 F 98.4 F 98.3 F Pulse Rate 91 H 87 114 H Respiratory 18 18 18 Rate Blood Pressure 138/88 177/101 Blood Pressure 131/79 [Right] O2 Sat by Pulse 99 96 96 Oximetry Constitutional: no acute distress, asleep, other (chronically ill looking, temporal wasting) Eyes: non-icteric ENT: oropharynx dry Neck: supple, no lymphadenopathy, no JVD Effort: normal Ascultation: Bilateral: diminished breath sounds Cardiovascular: regular rate and rhythm, other (S1,S2) Gastrointestinal: normoactive bowel sounds, soft, non-tender, non-distended Integumentary: normal Extremities: no cyanosis, no edema, pink and warm, pulses normal Neurologic: pupils equal and round, CN II-XII normal, other (dysarthria) Psychiatric: affect normal CBC and BMP: 03/12/20 04:00 03/14/20 05:45 ABG, PT/INR, D-dimer: PT/INR, D-dimer PT 14.6 Sec. (12.2-14.9) 03/08/20 19:17 INR 1.13 (0.87-1.13) 03/08/20 19:17 Abnormal lab findings: Abnormal Labs 03/08/20 03/08/20 03/08/20 16:10 16:10 16:44 WBC 2.7 L RBC Hgb 15.6 H Hct 47.3 H RDW 15.5 H Plt Count 108 L Lymph % (Auto) 10.5 L Lymph # (Auto) 0.3 L Seg Neutrophils % 82.9 H Seg Neuts % (Manual) Lymphocytes % (Manual) Monocytes % (Manual) Seg Neutrophils # Man Lymphocytes # (Manual) APTT Sodium 147 H Potassium Carbon Dioxide 32 H BUN Creatinine Glucose POC Glucose Calcium Phosphorus Magnesium ALT Total Creatine Kinase 27 L Total Protein Albumin 3.3 L Triglycerides Urine WBC (Auto) 03/08/20 03/08/20 03/09/20 19:17 21:39 04:13 WBC 4.2 L RBC 3.07 L Hgb 9.7 L D Hct 29.6 L D RDW 15.3 H Plt Count 115 L Lymph % (Auto) 8.7 L Lymph # (Auto) 0.4 L Seg Neutrophils % 73.9 H Seg Neuts % (Manual) Lymphocytes % (Manual) Monocytes % (Manual) Seg Neutrophils # Man Lymphocytes # (Manual) APTT 23.7 L Sodium Potassium Carbon Dioxide BUN Creatinine Glucose POC Glucose Calcium Phosphorus Magnesium ALT Total Creatine Kinase Total Protein Albumin Triglycerides Urine WBC (Auto) 15.0 H 03/09/20 03/09/20 03/10/20 04:13 14:11 03:33 WBC RBC Hgb Hct RDW Plt Count Lymph % (Auto) Lymph # (Auto) Seg Neutrophils % Seg Neuts % (Manual) Lymphocytes % (Manual) Monocytes % (Manual) Seg Neutrophils # Man Lymphocytes # (Manual) APTT Sodium Potassium 3.2 L 3.4 L Carbon Dioxide 32 H BUN Creatinine Glucose 105 H POC Glucose 127 H Calcium 7.9 L 7.6 L Phosphorus Magnesium ALT 6 L Total Creatine Kinase Total Protein Albumin 2.5 L Triglycerides Urine WBC (Auto) 03/10/20 03/10/20 03/11/20 18:13 23:11 05:35 WBC RBC Hgb Hct RDW Plt Count Lymph % (Auto) Lymph # (Auto) Seg Neutrophils % Seg Neuts % (Manual) Lymphocytes % (Manual) Monocytes % (Manual) Seg Neutrophils # Man Lymphocytes # (Manual) APTT Sodium Potassium 3.2 L Carbon Dioxide BUN Creatinine 0.5 L Glucose 106 H POC Glucose 61 L 120 H Calcium 7.5 L Phosphorus 2.30 L Magnesium 1.50 L ALT 6 L Total Creatine Kinase Total Protein 5.5 L Albumin 2.1 L Triglycerides Urine WBC (Auto) 03/12/20 03/12/20 03/12/20 01:14 EST 04:00 04:00 WBC 1.7 L* RBC 3.37 L Hgb Hct RDW 15.5 H Plt Count 108 L Lymph % (Auto) Lymph # (Auto) Seg Neutrophils % Seg Neuts % (Manual) 77.0 H Lymphocytes % (Manual) 11.0 L Monocytes % (Manual) 11.0 H Seg Neutrophils # Man 1.3 L Lymphocytes # (Manual) 0.2 L APTT Sodium Potassium 3.5 L Carbon Dioxide BUN 5 L Creatinine 0.5 L Glucose POC Glucose 106 H Calcium 7.6 L Phosphorus Magnesium ALT 6 L Total Creatine Kinase Total Protein 5.4 L Albumin 2.0 L Triglycerides Urine WBC (Auto) 03/13/20 03/14/20 03/14/20 06:38 05:45 05:47 WBC RBC Hgb Hct RDW Plt Count Lymph % (Auto) Lymph # (Auto) Seg Neutrophils % Seg Neuts % (Manual) Lymphocytes % (Manual) Monocytes % (Manual) Seg Neutrophils # Man Lymphocytes # (Manual) APTT Sodium Potassium Carbon Dioxide BUN Creatinine 0.4 L 0.5 L Glucose 106 H POC Glucose 107 H Calcium 7.9 L 8.0 L Phosphorus Magnesium ALT Total Creatine Kinase Total Protein Albumin Triglycerides 191 H Urine WBC (Auto) Chest x-ray: report reviewed, image reviewed Additional Studies: CHEST 1 VIEW 03/13/20 INDICATION: Pneumoperitoneum., aspiration. [employer] use disorder. COMPARISON: 03/08/2020 FINDINGS: Support devices: Nasogastric tube is in satisfactory position. Heart: Normal. Lungs/Pleura: No acute pulmonary or pleural findings. IMPRESSION: 1. No acute findings.
--- NOTE | 2020-03-14 12:29 | Progress Note ---
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 CT scan of the abdomen and pelvis revealed perforated viscus. Surgical team consulted in the emergency department. Surgery recommend for transfer to [place] however was unable to get in contact with a surgeon there and ordered a abd US for evaluation. On 03/08 she was hypokalemic, and has a marked decrease in her h/h therefore a stat occult and type & cross was ordered and her home Keppra was changed to IV. 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 An abdominal ultrasound shows an incompletely distended gallbladder and intraluminal air with mild pneumobilia, and pneumoperitoneum. GI and vascular surgery were consulted. GI and surgery both recommend surgical intervention however vascular surgery recommends conservative treatment with IV antibiotics, TPN and follow-up abdominal films. Patient will be transferred to [facility]. --SMA syndrome/gallstone ileus Current Visit: Yes Status: Acute Plan to address problem: NPO, IVF Trend CBC Trend CMP IV Zosyn NG tube to LIS 03/09 GI consulted per surgery request; agree with obtaining MRCP however also agrees with transfer to [place] -03/11 abd xr: colonic pneumatosis, especially along the right mid abdomen has not significantly changed from 03/09/2020. --Pneumobilia-/pneumoperitoneum Current Visit: No Status: Acute . Plan to address problem: Continue supportive care -- Acute encephalopathy Current Visit: No Status: Acute Plan to address problem: Supportive care Reorientation as needed Correct metabolic derangements Fall and aspiration precautions --UTI (urinary tract infection) Current Visit: Yes Status: Acute Plan to address problem: IV fluids, supportive care Cultures negative to date --History of CVA, residual weakness Onset Date: 06/10/13 Current Visit: No Status: Chronic Plan to address problem: Supportive care Resume p.o. intake when able; statin, aspirin, anti-hypertensive regimen --Seizure disorder Current Visit: No Status: Chronic Plan to address problem: Seizure precautions Supportive shelter Keppra 500 mg p.o. twice daily changed to IV 500 mg twice daily while n.p.o. --Hypertension Current Visit: No Status: Chronic Plan to address problem: Blood pressure monitor per protocol Resume home antihypertensive regimen when not n.p.o. IV labetalol as needed for SBP greater than 160 -- Protein-calorie malnutrition, severe Current Visit: No Status: Chronic Plan to address problem: Continue TPN, supportive care Dietitian following -- DVT prophylaxis Current Visit: No Status: Acute Plan to address problem: SCDs to bilateral lower extremities while in bed History Interval history: I have seen and examined the patient at the bedside Patient's chart and medications reviewed Patient is being transferred to [facility] for further evaluation and management Awaiting transfer center call Patient chronically ill looking cachectic emaciated and undernourished In mild distress Vital signs noted Hospitalist Physical - Constitutional Vitals: Temp Pulse Resp BP Pulse Ox 97.6 F 106 H 24 136/87 99 03/14/20 12:00 03/14/20 12:00 03/14/20 12:00 03/14/20 12:00 03/14/20 12:00 General appearance: Present: no acute distress, mild distress, cachectic, disheveled, other (Undernourished) - EENT Eyes: Present: PERRL, EOM intact - Neck Neck: Present: supple, normal ROM - Respiratory Respiratory effort: normal Respiratory: bilateral: diminished, negative: rales, rhonchi, wheezing - Cardiovascular Rhythm: regular Heart Sounds: Present: S1 & S2 - Extremities Extremities: no ischemia, No edema - Abdominal General gastrointestinal: soft, non-tender, non-distended, normal bowel sounds - Integumentary Integumentary: Present: clear, warm - Psychiatric Psychiatric: appropriate mood/affect - Neurologic Neurologic: moves all extremities Results - Labs CBC & Chem 7: 03/12/20 04:00 03/14/20 05:45 Labs: Laboratory Last Values WBC 1.7 K/mm3 (4.5-11.0) L* 03/12/20 04:00 RBC 3.37 M/mm3 (3.65-5.03) L 03/12/20 04:00 Hgb 10.7 gm/dl (10.1-14.3) 03/12/20 04:00 Hct 31.7 % (30.3-42.9) 03/12/20 04:00 MCV 94 fl (79-97) 03/12/20 04:00 MCH 32 pg (28-32) 03/12/20 04:00 MCHC 34 % (30-34) 03/12/20 04:00 RDW 15.5 % (13.2-15.2) H 03/12/20 04:00 Plt Count 108 K/mm3 (140-440) L 03/12/20 04:00 Lymph % (Auto) 8.7 % (13.4-35.0) L 03/09/20 04:13 [place] % (Auto) Ultrasonic Tester 03/12/20 04:00 Eos % (Auto) 0.5 % (0.0-4.3) 03/09/20 04:13 Baso % (Auto) 0.2 % (0.0-1.8) 03/09/20 04:13 Lymph # (Auto) 0.4 K/mm3 (1.2-5.4) L 03/09/20 04:13 [place] # (Auto) 0.7 K/mm3 (0.0-0.8) 03/09/20 04:13 Eos # (Auto) 0.0 K/mm3 (0.0-0.4) 03/09/20 04:13 Baso # (Auto) 0.0 K/mm3 (0.0-0.1) 03/09/20 04:13 Add Manual Diff Complete 03/12/20 04:00 Total Counted 100 03/12/20 04:00 Seg Neutrophils % 73.9 % (40.0-70.0) H 03/09/20 04:13 Seg Neuts % (Manual) 77.0 % (40.0-70.0) H 03/12/20 04:00 Band Neutrophils % 0 % 03/12/20 04:00 Lymphocytes % (Manual) 11.0 % (13.4-35.0) L 03/12/20 04:00 Reactive Lymphs % (Man) 0 % 03/12/20 04:00 Monocytes % (Manual) 11.0 % (0.0-7.3) H 03/12/20 04:00 Eosinophils % (Manual) 1.0 % (0.0-4.3) 03/12/20 04:00 Basophils % (Manual) 0 % (0.0-1.8) 03/12/20 04:00 Metamyelocytes % 0 % 03/12/20 04:00 Myelocytes % 0 % 03/12/20 04:00 Promyelocytes % 0 % 03/12/20 04:00 Blast Cells % 0 % 03/12/20 04:00 Nucleated RBC % Not Reportable 03/12/20 04:00 Seg Neutrophils # 3.1 K/mm3 (1.8-7.7) 03/09/20 04:13 Seg Neutrophils # Man 1.3 K/mm3 (1.8-7.7) L 03/12/20 04:00 Band Neutrophils # 0.0 K/mm3 03/12/20 04:00 Lymphocytes # (Manual) 0.2 K/mm3 (1.2-5.4) L 03/12/20 04:00 Abs React Lymphs (Man) 0.0 K/mm3 03/12/20 04:00 Monocytes # (Manual) 0.2 K/mm3 (0.0-0.8) 03/12/20 04:00 Eosinophils # (Manual) 0.0 K/mm3 (0.0-0.4) 03/12/20 04:00 Basophils # (Manual) 0.0 K/mm3 (0.0-0.1) 03/12/20 04:00 Metamyelocytes # 0.0 K/mm3 03/12/20 04:00 Myelocytes # 0.0 K/mm3 03/12/20 04:00 Promyelocytes # 0.0 K/mm3 03/12/20 04:00 Blast Cells # 0.0 K/mm3 03/12/20 04:00 WBC Morphology Not Reportable 03/12/20 04:00 Hypersegmented Neuts Not Reportable 03/12/20 04:00 Hyposegmented Neuts Not Reportable 03/12/20 04:00 Hypogranular Neuts Not Reportable 03/12/20 04:00 Smudge Cells Not Reportable 03/12/20 04:00 Toxic Granulation Not Reportable 03/12/20 04:00 Toxic Vacuolation Not Reportable 03/12/20 04:00 Dohle Bodies Not Reportable 03/12/20 04:00 Pelger-Huet Anomaly Not Reportable 03/12/20 04:00 Dirk Rods Not Reportable 03/12/20 04:00 Platelet Estimate Consistent w auto 03/12/20 04:00 Clumped Platelets Not Reportable 03/12/20 04:00 Plt Clumps, EDTA Not Reportable 03/12/20 04:00 Large Platelets Not Reportable 03/12/20 04:00 Giant Platelets Not Reportable 03/12/20 04:00 Platelet Satelliting Not Reportable 03/12/20 04:00 Plt Morphology Comment Not Reportable 03/12/20 04:00 RBC Morphology Not Reportable 03/12/20 04:00 Dimorphic RBCs Not Reportable 03/12/20 04:00 Polychromasia Not Reportable 03/12/20 04:00 Hypochromasia Not Reportable 03/12/20 04:00 Poikilocytosis Not Reportable 03/12/20 04:00 Anisocytosis 1+ 03/12/20 04:00 Microcytosis Not Reportable 03/12/20 04:00 Macrocytosis Not Reportable 03/12/20 04:00 Spherocytes Not Reportable 03/12/20 04:00 Pappenheimer Bodies Not Reportable 03/12/20 04:00 Sickle Cells Not Reportable 03/12/20 04:00 Target Cells Not Reportable 03/12/20 04:00 Tear Drop Cells Not Reportable 03/12/20 04:00 Ovalocytes Not Reportable 03/12/20 04:00 Helmet Cells Not Reportable 03/12/20 04:00 [place] Bodies Not Reportable 03/12/20 04:00 [place] Rings Not Reportable 03/12/20 04:00 Jaci Cells Not Reportable 03/12/20 04:00 Bite Cells Not Reportable 03/12/20 04:00 Crenated Cell Not Reportable 03/12/20 04:00 Elliptocytes Not Reportable 03/12/20 04:00 Acanthocytes (Spur) Not Reportable 03/12/20 04:00 Rouleaux Not Reportable 03/12/20 04:00 Hemoglobin C Crystals Not Reportable 03/12/20 04:00 Schistocytes Not Reportable 03/12/20 04:00 Malaria parasites Not Reportable 03/12/20 04:00 Beni Bodies Not Reportable 03/12/20 04:00 Hem Pathologist Commnt No 03/12/20 04:00 PT 14.6 Sec. (12.2-14.9) 03/08/20 19:17 INR 1.13 (0.87-1.13) 03/08/20 19:17 APTT 23.7 Sec. (24.2-36.6) L 03/08/20 19:17 Sodium 137 mmol/L (137-145) 03/14/20 05:45 Potassium 4.2 mmol/L (3.6-5.0) 03/14/20 05:45 Chloride 99.2 mmol/L (98-107) 03/14/20 05:45 Carbon Dioxide 26 mmol/L (22-30) 03/14/20 05:45 Anion Gap 16 mmol/L 03/14/20 05:45 BUN 10 mg/dL (7-17) 03/14/20 05:45 Creatinine 0.5 mg/dL (0.6-1.2) L 03/14/20 05:45 Estimated GFR > 60 ml/min 03/14/20 05:45 BUN/Creatinine Ratio 20 % 03/14/20 05:45 Glucose 106 mg/dL (65-100) H 03/14/20 05:45 POC Glucose 107 mg/dL (70-105) H 03/14/20 05:47 Hemoglobin A1c 5.1 % (4-6) 03/09/20 04:13 Lactic Acid 0.90 mmol/L (0.7-2.0) 03/08/20 21:40 Calcium 8.0 mg/dL (8.4-10.2) L 03/14/20 05:45 Phosphorus 4.30 mg/dL (2.5-4.5) 03/14/20 05:45 Magnesium 2.30 mg/dL (1.7-2.3) 03/14/20 05:45 Total Bilirubin 0.20 mg/dL (0.1-1.2) 03/12/20 04:00 AST 12 units/L (5-40) 03/12/20 04:00 ALT 6 units/L (7-56) L 03/12/20 04:00 Alkaline Phosphatase 62 units/L (35-129) 03/12/20 04:00 Total Creatine Kinase 27 units/L (30-135) L 03/08/20 16:44 Total Protein 5.4 g/dL (6.3-8.2) L 03/12/20 04:00 Albumin 2.0 g/dL (3.9-5) L 03/12/20 04:00 Albumin/Globulin Ratio 0.6 % 03/12/20 04:00 Triglycerides 191 mg/dL (2-149) H 03/14/20 05:45 Urine Color [place] (Yellow) 03/08/20 21:39 Urine Turbidity Cloudy (Clear) 03/08/20 21:39 Urine pH 5.0 (5.0-7.0) 03/08/20 21:39 Ur Specific [place] 1.029 (1.003-1.030) 03/08/20 21:39 Urine Protein >500 mg/dL (Negative) 03/08/20 21:39 Urine Glucose (UA) Neg mg/dL (Negative) 03/08/20 21:39 Urine Ketones 20 mg/dL (Negative) 03/08/20 21:39 Urine Blood Mod (Negative) 03/08/20 21:39 Urine Nitrite Pos (Negative) 03/08/20 21:39 Urine Bilirubin Neg (Negative) 03/08/20 21:39 Urine Urobilinogen < 2.0 mg/dL (<2.0) 03/08/20 21:39 Ur Leukocyte Esterase Sm (Negative) 03/08/20 21:39 Urine WBC (Auto) 15.0 /HPF (0.0-6.0) H 03/08/20 21:39 Urine RBC (Auto) 11.0 /HPF (0.0-6.0) 03/08/20 21:39 U Epithel Cells (Auto) 8.0 /HPF (0-13.0) 03/08/20 21:39 Urine Bacteria (Auto) 4+ /HPF (Negative) 03/08/20 21:39 Urine Mucus 3+ /HPF 03/08/20 21:39 Nasal Screen MRSA (PCR) Negative (Negative) 03/09/20 Unknown Vancomycin Trough 18.8 ug/mL (5.0-20.0) 03/11/20 20:59 Blood Type B POSITIVE 03/09/20 18:30 Antibody Screen Negative 03/09/20 18:30 Sharif/IV: Voiding Method External Female Catheter IV Catheter Type [Right Upper Mid-line arm] IV Catheter Type [Left Forearm INT / Saline Lock ] Active Medications - Current Medications Current Medications: Generic Name Dose Route Start Last Admin Trade Name Freq PRN Reason Stop Dose Admin Atropine Sulfate 0.5 mg 03/10/20 19:46 Atropine IV Q4H PRN HR < 40 Dextrose 50 ml 03/09/20 09:00 03/10/20 18:03 D50w (25gm) Syringe IV 50 ml Q30MIN PRN Administration Hypoglycemia Protocol Hydralazine HCl 5 mg 03/11/20 11:31 03/12/20 07:12 Apresoline IV 5 mg Q30MIN PRN Administration Hypertension Levetiracetam 500 mg/ Dextrose 105 mls @ 400 mls/hr 03/09/20 10:00 03/14/20 09:08 IV 400 mls/hr Q12HR SHAWN Administration Piperacillin Sod/Tazobactam Sod 3.375 gm in 50 mls @ 100 mls/hr 03/10/20 12:00 03/14/20 11:50 Zosyn/Ns 3.375gm/50ml IV 100 mls/hr Q6HR SHAWN Administration Protocol Amino Acids/Electrolytes/Dextrose 2,016 mls @ 84 mls/hr 03/13/20 20:00 03/13/20 21:00 Tpn Adult IV 03/14/20 19:59 84 mls/hr DAILY@1999 SHAWN Administration Protocol Amino Acids/Electrolytes/Dextrose 2,400 mls @ 100 mls/hr 03/14/20 20:00 Tpn Adult IV 03/15/20 19:59 DAILY@1999 [facility] Protocol Insulin Human Regular 0 unit 03/09/20 09:30 03/14/20 06:43 Humulin R SUB-Q Not Given Q6HR SHAWN Protocol Sodium Chloride 10 ml 03/08/20 22:00 03/14/20 09:08 Sodium Chloride Flush Syringe 10 Ml IV 10 ml BID SHAWN Administration Sodium Chloride 10 ml 03/08/20 19:14 Sodium Chloride Flush Syringe 10 Ml IV PRN PRN LINE FLUSH Nutrition/Malnutrition Assess - Dietary Evaluation Nutrition/Malnutrition Findings: Nutrition Notes Start: 03/09/20 12:52 Freq: Status: Active Protocol: Document 03/14/20 11:53 AL (Rec: 03/14/20 12:10 AL [id number]) Co-Sign 03/14/20 11:53 MK Nutrition Notes Initial or Follow up Reassessment Current Diagnosis Decubitus(Pressure Ulcer), Hypertension,Stroke Other Pertinent Diagnosis Bowel perforation, PMH: dysphagia, stroke with R side deficits, seizures Current Diet PPN at 84ml/hr Labs/Tests Reviewed Pertinent Medications Reviewed Height 5 ft 5 in Weight 36.6 kg [place] Body Weight (kg) 56.81 BMI 13.4 Weight Status Emaciated Subjective/Other Information PPN day 4. Still waiting for placement at [place]. Percent of energy/protein needs met: 50%/100% Burn Absent Trauma Absent GI Symptoms Other Current % PO Negligible Minimum of two criteria Yes Energy Intake (severe) < or equal to 50% Estimated Energy Requirement > or equal to 5 days Body Fat Depletion Moderate depletion (severe) Muscle Mass Moderate Depletion (severe) Fluid Accumulation Mild (non-severe) #3 Nutrition Diagnosis Increased nutrient needs ( specify in comment below) Diagnosis Progress(for reassessment Continues documentation) #2 Nutrition Diagnosis Altered GI function Diagnosis Progress(for reassessment Continues documentation) #1 Nutrition Diagnosis Malnutrition Diagnosis Progress(for reassessment Continues documentation) Is patient on ventilator? No Is Patient Ambulatory and/or Out of Bed No REE-([facility]-confined to bed) 1135.476 Kcal/Kg value to use for calculation 40 Approximate Energy Requirements Using 1464 kcal/Kg Calculation Used for Recommendations Kcal/kg Additional Notes Protein 1.2-1.5g/k-56g Fluid: 1ml/kcal Nutrition Intervention Change Diet Order: PPN Nutrition Support: PPN at 100 ml/hr: 8.3% dextrose, 2.3% amino acids, 179 mEq Na, 60 mEq K, 19 mEq Mg, 12 mEq Ca, 18 mmol Phos MVI, MTE Osmolarity: 874 [ End ] Kcal 904 Protein (gm) 56 Carbohydrates (gm) 200 Fat (gm) 0 Fluid (mL) 2,400 Fiber (gm) 0 Goal #1 Meet energy and protein needs as best as possible with PPN Anticipated Discharge Needs: unable to determine at this time Follow-Up By: 03/15/20 Additional Comments Labs in AM: BMP, Mg, Phos, TG
[2020-03-14] MEDS ORDERED: TOTAL PARENTERAL NUTRITION 2,400 ML IV SCH (20:00)
[2020-03-15] MEDS: INSULIN REGULAR, HUMAN 100 UNIT/ML 3ML VIAL SUB-Q SCH ×2 (02:34→12:31)
[2020-03-15] MEDS: PIPERACILLIN/TAZOBACTAM 3.375 3.375 GM/50 ML BAG IV SCH (05:00)
[2020-03-15] MEDS: hydrALAZINE 20 MG/1 ML INJ IV PRN (05:05)
[2020-03-15 06:11] LABS: Blood Urea Nitrogen 12 mg/dL (7-17); Calcium 7.8 mg/dL (8.4-10.2); Hemolysis Index 13
[2020-03-15 06:15] LABS: BUN/Creatinine Ratio 24
[2020-03-15] MEDS: levETIRAcetam 500 MG in DEXTROSE 5% IN WATER 100 ML IV SCH (11:30)
[2020-03-15 12:38] VITALS: BP 156/94
--- NOTE | 2020-03-15 12:44 | Event Note ---
Date: 03/15/20 Bed available at [facility], patient to be transfered today.
--- NOTE | 2020-03-15 14:21 | Progress Note ---
Assessment and Plan Patient sleeping. No acute respiratory distress. Patient is on room air.O2 saturation 100%. Patient afebrile. Patient leukopenic. Patient is on zosyn. Patient admitted for bowel perforation. Patient is transfering to [facility]. Patients chest xray done 03/13/20 reported No acute process. ABGs pending. - Patient Problems (1) Bowel perforation Current Visit: Yes Status: Acute Plan to address problem: Management as per surgery. Patient transfering to [facility]. (2) Pneumatosis intestinalis Current Visit: Yes Status: Acute Plan to address problem: Management as per surgery. (3) Pneumoperitoneum Current Visit: Yes Status: Acute Plan to address problem: Management as per surgery. (4) Acute encephalopathy Current Visit: No Status: Acute Plan to address problem: Management as per primary care. (5) Hypertension Current Visit: No Status: Chronic Plan to address problem: As per primary care. Subjective Date of service: 03/15/20 Interval history: Patient sleeping. No acute respiratory distress. Patient is on room air.O2 saturation 100%. Patient afebrile. Patient leukopenic. Patient is on zosyn. Patient admitted for bowel perforation. Patient is transfering to [facility]. Patients chest xray done 03/13/20 reported No acute process. ABGs pending. Objective Vital Signs - 12hr 03/15/20 03/15/20 03/15/20 04:59 05:05 07:17 Temperature 98.2 F 98.2 F Pulse Rate 93 H 58 L Respiratory 18 18 Rate Blood Pressure 164/108 164/108 143/81 O2 Sat by Pulse 100 94 Oximetry 03/15/20 11:44 Temperature 98.4 F Pulse Rate 85 Respiratory 18 Rate Blood Pressure 156/94 O2 Sat by Pulse 100 Oximetry Constitutional: no acute distress, asleep, other (chronically ill looking, temporal wasting) Eyes: non-icteric ENT: oropharynx dry Neck: supple, no lymphadenopathy, no JVD Effort: normal Ascultation: Bilateral: diminished breath sounds Cardiovascular: regular rate and rhythm, other (S1,S2) Gastrointestinal: normoactive bowel sounds, soft, non-tender, non-distended Integumentary: normal Extremities: no cyanosis, no edema, pink and warm, pulses normal Neurologic: pupils equal and round, CN II-XII normal, other (dysarthria) Psychiatric: affect normal CBC and BMP: 03/12/20 04:00 03/15/20 05:36 ABG, PT/INR, D-dimer: ABG ABG pH 7.488 (7.320-7.450) H 03/14/20 12:36 POC ABG pCO2 32.8 mmHg (32.0-48.0) 03/14/20 12:36 POC ABG pO2 92.0 mmHg (83-108) 03/14/20 12:36 POC ABG HCO3 24.3 03/14/20 12:36 PT/INR, D-dimer PT 14.6 Sec. (12.2-14.9) 03/08/20 19:17 INR 1.13 (0.87-1.13) 03/08/20 19:17 Abnormal lab findings: Abnormal Labs 03/08/20 03/08/20 03/08/20 16:10 16:10 16:44 WBC 2.7 L RBC Hgb 15.6 H Hct 47.3 H RDW 15.5 H Plt Count 108 L Lymph % (Auto) 10.5 L Lymph # (Auto) 0.3 L Seg Neutrophils % 82.9 H Seg Neuts % (Manual) Lymphocytes % (Manual) Monocytes % (Manual) Seg Neutrophils # Man Lymphocytes # (Manual) APTT ABG pH ABG Sodium ABG Glucose Sodium 147 H Potassium Chloride Carbon Dioxide 32 H BUN Creatinine Glucose POC Glucose Calcium Phosphorus Magnesium ALT Total Creatine Kinase 27 L Total Protein Albumin 3.3 L Triglycerides Arterial Blood Glucose Arterial Blood Ionized Calcium Urine WBC (Auto) 03/08/20 03/08/20 03/09/20 19:17 21:39 04:13 WBC 4.2 L RBC 3.07 L Hgb 9.7 L D Hct 29.6 L D RDW 15.3 H Plt Count 115 L Lymph % (Auto) 8.7 L Lymph # (Auto) 0.4 L Seg Neutrophils % 73.9 H Seg Neuts % (Manual) Lymphocytes % (Manual) Monocytes % (Manual) Seg Neutrophils # Man Lymphocytes # (Manual) APTT 23.7 L ABG pH ABG Sodium ABG Glucose Sodium Potassium Chloride Carbon Dioxide BUN Creatinine Glucose POC Glucose Calcium Phosphorus Magnesium ALT Total Creatine Kinase Total Protein Albumin Triglycerides Arterial Blood Glucose Arterial Blood Ionized Calcium Urine WBC (Auto) 15.0 H 03/09/20 03/09/20 03/10/20 04:13 14:11 03:33 WBC RBC Hgb Hct RDW Plt Count Lymph % (Auto) Lymph # (Auto) Seg Neutrophils % Seg Neuts % (Manual) Lymphocytes % (Manual) Monocytes % (Manual) Seg Neutrophils # Man Lymphocytes # (Manual) APTT ABG pH ABG Sodium ABG Glucose Sodium Potassium 3.2 L 3.4 L Chloride Carbon Dioxide 32 H BUN Creatinine Glucose 105 H POC Glucose 127 H Calcium 7.9 L 7.6 L Phosphorus Magnesium ALT 6 L Total Creatine Kinase Total Protein Albumin 2.5 L Triglycerides Arterial Blood Glucose Arterial Blood Ionized Calcium Urine WBC (Auto) 03/10/20 03/10/20 03/11/20 18:13 23:11 05:35 WBC RBC Hgb Hct RDW Plt Count Lymph % (Auto) Lymph # (Auto) Seg Neutrophils % Seg Neuts % (Manual) Lymphocytes % (Manual) Monocytes % (Manual) Seg Neutrophils # Man Lymphocytes # (Manual) APTT ABG pH ABG Sodium ABG Glucose Sodium Potassium 3.2 L Chloride Carbon Dioxide BUN Creatinine 0.5 L Glucose 106 H POC Glucose 61 L 120 H Calcium 7.5 L Phosphorus 2.30 L Magnesium 1.50 L ALT 6 L Total Creatine Kinase Total Protein 5.5 L Albumin 2.1 L Triglycerides Arterial Blood Glucose Arterial Blood Ionized Calcium Urine WBC (Auto) 03/12/20 03/12/20 03/12/20 01:14 EST 04:00 04:00 WBC 1.7 L* RBC 3.37 L Hgb Hct RDW 15.5 H Plt Count 108 L Lymph % (Auto) Lymph # (Auto) Seg Neutrophils % Seg Neuts % (Manual) 77.0 H Lymphocytes % (Manual) 11.0 L Monocytes % (Manual) 11.0 H Seg Neutrophils # Man 1.3 L Lymphocytes # (Manual) 0.2 L APTT ABG pH ABG Sodium ABG Glucose Sodium Potassium 3.5 L Chloride Carbon Dioxide BUN 5 L Creatinine 0.5 L Glucose POC Glucose 106 H Calcium 7.6 L Phosphorus Magnesium ALT 6 L Total Creatine Kinase Total Protein 5.4 L Albumin 2.0 L Triglycerides Arterial Blood Glucose Arterial Blood Ionized Calcium Urine WBC (Auto) 03/13/20 03/14/20 03/14/20 06:38 05:45 05:47 WBC RBC Hgb Hct RDW Plt Count Lymph % (Auto) Lymph # (Auto) Seg Neutrophils % Seg Neuts % (Manual) Lymphocytes % (Manual) Monocytes % (Manual) Seg Neutrophils # Man Lymphocytes # (Manual) APTT ABG pH ABG Sodium ABG Glucose Sodium Potassium Chloride Carbon Dioxide BUN Creatinine 0.4 L 0.5 L Glucose 106 H POC Glucose 107 H Calcium 7.9 L 8.0 L Phosphorus Magnesium ALT Total Creatine Kinase Total Protein Albumin Triglycerides 191 H Arterial Blood Glucose Arterial Blood Ionized Calcium Urine WBC (Auto) 03/14/20 03/14/20 03/15/20 12:36 17:05 00:19 WBC RBC Hgb Hct RDW Plt Count Lymph % (Auto) Lymph # (Auto) Seg Neutrophils % Seg Neuts % (Manual) Lymphocytes % (Manual) Monocytes % (Manual) Seg Neutrophils # Man Lymphocytes # (Manual) APTT ABG pH 7.488 H ABG Sodium 131.9 L ABG Glucose 99 H Sodium Potassium Chloride Carbon Dioxide BUN Creatinine Glucose POC Glucose 117 H 115 H Calcium Phosphorus Magnesium ALT Total Creatine Kinase Total Protein Albumin Triglycerides Arterial Blood Glucose 99 H Arterial Blood Ionized Calcium 4.5 L Urine WBC (Auto) 03/15/20 03/15/20 03/15/20 05:28 05:36 12:06 WBC RBC Hgb Hct RDW Plt Count Lymph % (Auto) Lymph # (Auto) Seg Neutrophils % Seg Neuts % (Manual) Lymphocytes % (Manual) Monocytes % (Manual) Seg Neutrophils # Man Lymphocytes # (Manual) APTT ABG pH ABG Sodium ABG Glucose Sodium 133 L Potassium Chloride 97.2 L Carbon Dioxide BUN Creatinine 0.5 L Glucose 109 H POC Glucose 115 H 112 H Calcium 7.8 L Phosphorus Magnesium 2.50 H ALT Total Creatine Kinase Total Protein Albumin Triglycerides Arterial Blood Glucose Arterial Blood Ionized Calcium Urine WBC (Auto)
--- NOTE | 2020-03-15 17:20 | Discharge Summary ---
Providers - Providers Date of Admission: 03/08/20 19:14 Date of discharge: 03/15/20 Attending physician: ISHA MARTINEZ 03/08/20 18:18 Consult to Physician [CONS] Urgent Comment: Consulting Provider: DIANA FINK Physician Instructions: Reason For Exam: perf viscus 03/08/20 20:43 Speech Therapy Evaluation and Treat [CONS] Urgent Reason For Exam: evaluate for choledochoenteric fistula 03/09/20 08:39 Consult to Physician [CONS] Routine Comment: called office/ denis Consulting Provider: JAZIEL CARSON Physician Instructions: Reason For Exam: bowel perf 03/09/20 14:01 Midline [Consult to PICC Line RN] [CONS] Routine Reason For Exam: IV access Type Line:: Midline 03/09/20 15:49 Consult to Physician [CONS] Urgent Comment: dr ruiz is aware/ denis Consulting Provider: ELDA RUIZ Physician Instructions: Reason For Exam: critical care managment 03/09/20 17:32 Consult to Physician [CONS] Routine Comment: Consulting Provider: FINN WADE Physician Instructions: evaluate for SMA syndrome Reason For Exam: sma syndrome? 03/11/20 11:29 Consult to Dietitian/Nutrition [CONS] Routine Physician Instructions: Reason For Exam: Reason for Consult: Write/Manage TPN/PPN Primary care physician: [employer] Hospitalization Reason for admission: Nausea vomiting abdominal pain/perforated viscus on CT Condition: Serious Hospital course: 59 YO Female with CVA complicated by Debility, Expressive Aphasia, HTN, Seizure Disorder, HLD, Sacral Decubitus Ulcer severe malnutrition presents to ED for 3 days of vomiting prior to arrival on 03/08 and found to be in distress by home health nurse and EMS. CT scan of the abdomen and pelvis revealed perforated viscus. Surgical team consulted in the emergency department. Surgery recommend for transfer to [place] however was unable to get in contact with a surgeon there and ordered a abd US for evaluation. On 03/08 she was hypokalemic, and has a marked decrease in her h/h therefore a stat occult and type & cross was ordered and her home Keppra was changed to IV. 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 An abdominal ultrasound shows an incompletely distended gallbladder and intraluminal air with mild pneumobilia, and pneumoperitoneum. GI and vascular surgery were consulted. GI and surgery both recommend surgical intervention however vascular surgery recommends conservative treatment with IV antibiotics, TPN and follow-up abdominal films. Discussed with transfer center at [place] with receiving hospitalist Dr. Thurman patient is accepted and is being transferred today Patient is hemodynamically stable, with guarded prognosis --SMA syndrome/pneumatosis intestinalis/ pneumoperitoneum[on CTA abdomen 03/09/2020] Current Visit: Yes Status: Acute Plan to address problem: 03/08 CT abdomen/pelvis without contrast shows pneumatosis intestinalis involving the ascending colon, proximal transverse colon and likely the cecum. Associated with bowel perforation with the majority of air in the upper abdomen suggesting perforation of the region of the hepatic flexure and mild bibasilar emphysema with mild left basilar atelectasis, a small to moderate pericardial effusion and calcifications in the region of the pancreas possibly representing chronic pancreatitis 03/09 CT angio abdomen/pelvis shows mild to moderate atherosclerotic disease in the abdominal aortoiliac arteries and mesenteric arteries with no mesenteric stenosis or occlusion, and narrowing between the superior mesenteric artery and aorta with mass-effect on the transverse/distal duodenum which 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 03/10 abdominal ultrasound shows an incompletely distended gallbladder with minimally thickened gallbladder wall, linear echogenic foci within the contracted gallbladder lumen likely representing intraluminal air as seen on recent CT abdomen and pelvis, mild pneumobilia and pneumoperitoneum Surgery consulted: Attempted to transfer the patient to [place] however was unable to on 03/08, Possible SMA syndrome vs gallstone illeus and perhaps a cholecysto vs choledochoenteric fistula Continue patient management N.p.o. 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 Onset Date: 06/10/13 Current Visit: No Status: Chronic Plan to address problem: Continue aspirin and statin, supportive care -- Seizure disorder Current Visit: No Status: Chronic Plan to address problem: Seizure precautions, no new episodes of seizure Continue antiepileptic medications, patient cannot drive until cleared by PMD /neuro --Hypertension Current Visit: No Status: Chronic Plan to address problem: Moderate control, continue current antihypertensives --Protein-calorie malnutrition, severe Current Visit: No Status: Chronic Plan to address problem: TPN, dietitian following Treat the underlying cause Disposition: DC/TX-70 ANOTHER TYPE HLTHCARE Time spent for discharge: 33 min Core Measure Documentation - Palliative Care Palliative Care/ Comfort Measures: Not Applicable - Core Measures Any of the following diagnoses?: none Exam - Constitutional Vitals: Temp Pulse Resp BP Pulse Ox 98.4 F 85 18 156/94 100 03/15/20 11:44 03/15/20 11:44 03/15/20 11:44 03/15/20 11:44 03/15/20 11:44 General appearance: Present: severe distress, cachectic, disheveled, other (Malnourished) - EENT Eyes: Present: PERRL, EOM intact - Neck Neck: Present: supple. Absent: rigidity - Respiratory Respiratory effort: normal Respiratory: bilateral: diminished, rhonchi, negative: rales, wheezing - Cardiovascular Rhythm: regular Heart Sounds: Present: S1 & S2 - Extremities Extremities: no ischemia, No edema - Abdominal General gastrointestinal: Present: soft, non-tender Plan Activity: other (Bedbound) Diet: other (N.p.o. status/TPN) Additional Instructions: Patient is being transferred to [facility], for further evaluation and management, hospitalist Dr. Thurman accepted the patient. Follow up with: PRIMARY CARE, [Primary Care Provider] - 7 Days
[2020-03-15] MEDS ORDERED: FAT EMULSIONS 20% 250 ML IV SCH (20:00)
[2020-03-15] MEDS ORDERED: TOTAL PARENTERAL NUTRITION 2,400 ML IV SCH (20:00)
== END 2020-03-15 15:30 | disposition short-term general hospital (02) | DRG 393 ==
LOC: ED 15:07 → IMCU 19:14 → 3B-SURG 03-12 13:51
PROVIDERS: ADMIT Internal Medicine; ATTEND Internal Medicine
PROC: 3E0336Z Introduction of Nutritional Substance into Peripheral Vein, Percutaneous Approach (ICD-10-PCS; 2020-03-11)
PROC: 4A033R1 Measurement of Arterial Saturation, Peripheral, Percutaneous Approach (ICD-10-PCS; principal; 2020-03-14)
DX: K63.1 Perforation of intestine (nontraumatic) (principal); E43 Unspecified severe protein-calorie malnutrition; G93.41 Metabolic encephalopathy; K56.3 Gallstone ileus; N39.0 Urinary tract infection, site not specified; R64 Cachexia; Z68.1 Body mass index [BMI] 19.9 or less, adult; J98.11 Atelectasis; K66.8 Other specified disorders of peritoneum; K63.89 Other specified diseases of intestine; E87.6 Hypokalemia; Z79.82 Long term (current) use of aspirin; I10 Essential (primary) hypertension; Z86.73 Personal history of transient ischemic attack (TIA), and cerebral infarction without residual deficits; G40.909 Epilepsy, unspecified, not intractable, without status epilepticus; E78.2 Mixed hyperlipidemia; Z71.89 Other specified counseling; D69.6 Thrombocytopenia, unspecified; L89.159 Pressure ulcer of sacral region, unspecified stage; B95.7 Other staphylococcus as the cause of diseases classified elsewhere; J43.9 Emphysema, unspecified
CPT/HCPCS: 36415; 36600; 71045; 74018; 74174; 74176; 76705; 80048; 80053; 80202; 81001; 82140; 82550; 82805; 82962; 83036; 83735; 84100; 84478; 85007; 85014; 85018; 85025; 85610; 85730; 86850; 86900; 86901; 87040; 87086; 87641; 93005; 96361; 96365; 96366; 96367; 96375; G0378; J0360; J1815; J1953; J2405; J2543; J3370; J3475; J3480; J7030; J7050; Q9967